=== PATIENT | female | born 1945 | race Caucasian/White ===

== ENCOUNTER 2022-02-16 10:37 | Emergency (ER) | payer OTHER, BC ==
--- OUTSIDE RECORDS SUMMARY | 2022-02-16 10:41 | XMS REPORT | Continuity of Care Document ---
:1945 Author Organization [facility] t Address [address] [place] [address] Care Team Providers Name Role Phone ZHANE_Shalini Attending Clinician Unavailable Neeru Attending Clinician [phone] Lisse_S Attending Clinician Unavailable Carmen Sy Attending Clinician [phone] HZANE_MARV_Horacio Attending Clinician Unavailable ZHANE_LUIS ENRIQUE_Kerrie Admitting Clinician Unavailable Lisse_S Admitting Clinician Unavailable ZHANE_MARV_LRichter Admitting Clinician Unavailable Payers Payer Name Policy Type Policy Number Effective Date Expiration Date Bi [place]ell [place] [id number] 2007 [employer] 00:00:[place] [facility] [id number] 2014 EMPLOYEE PROGRAM 00:00:00 (PP[place] 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 constipati Constipati 5-11 Fa asad on on 00:00: Practic 00 e Syncope Syncope Problem Active [facility] and and 01-11 Family collapse Collapse 00:00: Practi c 00 e Hypothyroi Hypothyroi Problem Active [facility] dism dism 01-11 Family 00:00: Practic 00 e Essential Essential Problem Active Chepe mclaughlin tremor Tremor 01-11 Family 00:00: Practic 00 e Hypertensi Hypertensi Problem Active [facility] ve ve Family disorder Disorder Practi c e Postnasal Postnasal Problem Active [facility] drip drip for ENT Nasal Nasal Problem Active Center airway airway for ENT obstructio obstructio n n Hypertroph Hypertroph Problem Active C enter y of nasal y of nasal fo r ENT turbinates turbinates Cough Cough Problem Active Center for [facility] Headache Headache Problem Active Cente r for ENT Chronic Chronic Problem Active Center sphenoidal sphenoidal fo r ENT sinusitis sinusitis Pain in Pain in Problem Active Center throat throat for ENT Sinusitis Sinusitis Problem Active [facility] - Chronic - Chronic for ENT Allergic Allergic Problem Active Cente r rhinitis rhinitis for EN T Otalgia, Otalgia, Problem Active Cente r bilateral bilateral for ENT Atypical Atypical Problem Active Cente r facial facial for ENT pain pain Allergies, Adverse Reactions, Alerts Allergy Allergy Status Severity Reaction(s) Onset Inactive Treating Comm ents Source Name Type Date Date Clinician Lexapro Allergy Active [place] to 4- Family substanc 00:00: Practic e 00 e Codeine Allergy Active [place] to 1-20 Family substanc 00:00: Practic e 00 e codeine DA Active [facility] 6-19 Clear 00:00: [facility] Not DA Active U 2008- [facility] Converte 6-19 Clear d 316. 00:00: Mccann See 00 [facility] asprin Adverse Active Info Not Center Reaction Available for E NT Social History Smoking Status Start Date Stop Date Source Never Smoker [place] Family P racdeshawn Medications Ordered Filled Start Stop Current Ordering Indication Dosage Frequency Signature Comments Components Source Medication Medication Date Date Medication? Clinician (SIG) Name Name Serena Lyons Yes Quan Allenes 2 sprays Center 2-05 in each for ENT 00:00: nostril 00 Astelin Astelin Yes Quan Nevarez 2 sprays Center 2-05 in each for ENT 00:00: nostril 00 calcium-vit calcium-vit No calcium-vi [place] 02-15 tamin Family D3-vitamin D3-vitamin 00:00: D3-vitamin Practic K 500 K 500 00 K 500 e mg-500 mg-500 mg-500 unit-40 mcg unit-40 mcg unit-40 chewable chewable mcg tablet tablet chewable calcium-vit calcium-vit tablet [place] calcium-vi D3-vitamin D3-vitamin tamin K 500 K 500 D3-vitamin mg-500 mg-500 K 500 unit-40 mcg unit-40 mcg mg-500 chewable chewable unit-40 tablet 1 tablet 1 mcg Tablet(s) Tablet(s) chewable Oral two Oral two tablet 1 times a day times a day Tablet(s) Oral two times a day Probiotic Probiotic No Probiotic [facility] Blend 2 Blend 2 02-15 Blend 2 Family billion billion 00:00: billion Prac tic cell-50 mg cell-50 mg 00 cell-50 mg e capsule capsule capsule Probiotic Probiotic Probiotic Blend 2 Blend 2 Blend 2 million million million cell-50 mg cell-50 mg cell-50 mg capsule 1 capsule 1 capsule 1 Capsule(s) Capsule(s) Capsule(s) Oral two Oral two Oral two times a day times a day times a day multivitami multivitami No multivitam [facility] n capsule n capsule 2-20 in capsule Family 00:00: Practic 00 e amlodipine amlodipine No 1 Q1D amlodipine Village 5 mg tablet 5 mg tablet 5 mg F amily Take 1 Take 1 tablet Practic tablet tablet Take 1 e every day every day tablet by oral by oral every day route. route. by oral route. estradiol estradiol No estradiol [facility] 0.0375 0.0375 0.0375 Family mg/24 hr mg/24 hr mg/24 hr Pra ctic semiweekly semiweekly semiweekly e transdermal transdermal transderma patch patch l patch fluticasone fluticasone No fluticason [facility] propionate propionate e Fam yared 50 50 propionate Practic mcg/actuati mcg/actuati 50 e on nasal on nasal mcg/actuat spray,suspe spray,suspe ion nasal nsion USE 1 nsion USE 1 spray,susp SPRAY IN SPRAY IN ension USE EACH EACH 1 SPRAY IN NOSTRIL NOSTRIL EACH TWICE DAILY TWICE DAILY NOSTRIL TWICE DAILY levocetiriz levocetiriz No levocetiri [facility] ine 5 mg ine 5 mg zine 5 mg Fa asad tablet TAKE tablet TAKE tablet Practic 1 TABLET BY 1 TABLET BY TAKE 1 e MOUTH DAILY MOUTH DAILY TABLET BY NEEDED NEEDED MOUTH DAILY NEEDED [facility]elukast [facility]el[facility] 10 mg t 10 mg Family tablet TAKE tablet TAKE tablet Practic 1 TABLET BY 1 TABLET BY TAKE 1 e MOUTH EVERY MOUTH EVERY TABLET BY DAY IN THE DAY IN THE MOUTH EVENING EVENING EVERY DAY IN THE EVENING olmesartan olmesartan No olmesartan [facility] 40 mg 40 mg 40 mg Family tablet TAKE tablet TAKE tablet Practic 1 TABLET BY 1 TABLET BY TAKE 1 e MOUTH EVERY MOUTH EVERY TABLET BY DAY DAY MOUTH EVERY DAY pantoprazol pantoprazol No pantoprazo [facility] e 40 mg e 40 mg le 40 mg Famil y tablet,seb tablet,seb tablet,del Practic yed release yed release ayed e TAKE 1 TAKE 1 release TABLET TABLET TAKE 1 DAILY DAILY TABLET DAILY pravastatin pravastatin No pravastati [facility] 20 mg 20 mg n 20 mg Family tablet TAKE tablet TAKE tablet Practic 1 TABLET 1 TABLET TAKE 1 e NIGHTLY AT NIGHTLY AT TABLET BEDTIME BEDTIME NIGHTLY AT BEDTIME sertraline sertraline No sertraline [facility] 50 mg 50 mg 50 mg Family tablet 1/2 tablet 1/2 tablet 1/2 Practic po q HS x po q HS x po q HS x e 10 nights 10 nights 10 nights then then then increase to increase to increase 1 tablet 1 tablet to 1 daily daily tablet daily Synthroid Synthroid Synthroid [facility] 50 mcg 50 mcg 50 mcg Family tablet TAKE tablet TAKE tablet Practic 1 TABLET 1 TABLET TAKE 1 e EVERY EVERY TABLET MORNING MORNING EVERY MORNING Immunizations Ordered Immunization Filled Immunization Date Status Commen ts Source Name Name COVID-19, mRNA, COVID-19, mRNA, 2021-08-16 Completed Vill age Family LNP-S, PF, 100 LNP-S, PF, 100 00:00:00 Practi ce mcg/0.5 mL dose mcg/0.5 mL dose (Moderna) (Moderna) influenza, high-dose, influenza, high-dose, 2021-06-02 Completed [facility] quadrivalent quadrivalent 00:00:00 Practice COVID-19, mRNA, COVID-19, mRNA, 2020-11-15 Completed Vill age Family LNP-S, PF, 100 LNP-S, PF, 100 00:00:00 Practi ce mcg/0.5 mL dose mcg/0.5 mL dose (Moderna) (Moderna) COVID-19, mRNA, COVID-19, mRNA, 2020-10-19 Completed Vill age Family LNP-S, PF, 100 LNP-S, PF, 100 00:00:00 Practi ce mcg/0.5 mL dose mcg/0.5 mL dose (Moderna) (Moderna) influenza, influenza, 2020-07-19 Completed [facility] injectable, injectable, 00:00:00 Practice quadrivalent quadrivalent zoster recombinant zoster recombinant 2019-07-19 Completed [facility] 00:00:00 Practice influenza, high dose influenza, high dose 2019-06-18 Completed [facility] seasonal seasonal 00:00:00 Practice pneumococcal pneumococcal 2018-07-25 Completed [facility] asad conjugate PCV 13 conjugate PCV 13 00:00:00 Pr actice influenza, seasonal, influenza, seasonal, 2018-07-09 Completed [facility] injectable injectable 00:00:00 Practice influenza, high dose influenza, high dose 2017-07-19 Completed [facility] seasonal seasonal 00:00:00 Practice influenza, seasonal, influenza, seasonal, 2012-06-21 Completed [facility] injectable injectable 00:00:00 Practice influenza, seasonal, influenza, seasonal, 2011-05-19 Completed [facility] injectable injectable 00:00:00 Practice pneumococcal pneumococcal 2009-08-04 Completed [facility] asad polysaccharide PPV23 polysaccharide PPV23 00:00:00 Practice zoster live zoster live 2006-09-19 [facility] Vital Signs Vital Name Observation Time Observation Value Comments Source BP Diastolic 2021-11-10 00:00:00 90 mm[Hg] [facility] Height 2021-11-10 00:00:00 63 [in_i] [facility] BMI (Body Mass 2021-11-10 00:00:00 21.4 kg/m2 [facility] Index) Practice BP Systolic 2021-11-10 00:00:00 160 mm[Hg] [facility] Body Weight 2021-11-10 00:00:00 120.6 [lb_av] [facility] BP Diastolic 2021-09-14 00:00:00 84 mm[Hg] [facility] Height 2021-09-14 00:00:00 63 [in_i] [facility] BMI (Body Mass 2021-09-14 00:00:00 21.3 kg/m2 [facility]) Practice BP Systolic 2021-09-14 00:00:00 168 mm[Hg] [facility] Body Weight 2021-09-14 00:00:00 120 [lb_av] [facility] Height 2021-07-14 00:00:00 63 [in_i] [facility] BMI (Body Mass 2021-07-14 00:00:00 21.1 kg/m2 [facility]) Practice Body Weight 2021-07-14 00:00:00 119 [lb_av] [facility] Procedures Procedure Date / Time Performed Performing Clinician Sourc e DEXA 2021-11-10 00:00:[address] [facility] Hoda ly Practice electrocardiogram 2021-11-10 00:00:[address] [facility] Hayder kamara [facility] Plan of Care Planned Activity Planned Date Details Comments Source Diagnostic Test Pending 2021-11-10 vitamin B12, serum [facility] 00:00:00 [code = vitamin Practice B12, serum] Diagnostic Test Pending 2021-11-10 vitamin D, Vill [facility] Family 00:00:00 25-hydroxy, total, Practice serum [code = vitamin D, 25-hydroxy, total, serum] Diagnostic Test Pending 2021-11-10 CBC w/ auto diff [facility] 00:00:00 [code = CBC w/ Practice auto diff] Diagnostic Test Pending 2021-11-10 CMP, serum or Chepe lissette Family 00:00:00 plasma [code = Practice CMP, serum or plasma] Diagnostic Test Pending 2021-11-10 urinalysis, Vill age Family 00:00:00 complete [code = Practice urinalysis, complete] Diagnostic Test Pending 2021-11-10 TSH, serum or Chepe lissette Family 00:00:00 plasma [code = Practice TSH, serum or plasma] Diagnostic Test Pending 2021-11-10 T4, free, serum V illage Family 00:00:00 [code = T4, free, Practice serum] Diagnostic Test Pending 2021-11-10 T3, free, serum or Village Family 00:00:00 plasma [code = T3, Practice free, serum or plasma] Diagnostic Test Pending 2021-11-10 lipid panel, serum [facility] Family 00:00:00 [code = lipid Practice panel, serum] Instructions [facility] Practice Encounters Start End Encounter Admission Attending Care Care Encounter Source Date/Time Date/Time Type Type Clinicians Facility Department ID 2022-01-18 2022-01-18 Outpatient GC_[facility] PRIV PRIV [id number] [facility] 04:06:00 04:06:00 _Cathey [id number] Medica l 2022-01-13 2022-01-13 Outpatient GC_[facility] PRIV PRIV [id number] [facility] 12:29:00 12:29:00 _Cathey [id number] Medica l 2022-01-13 2022-01-13 Outpatient Siddiqi, PRIV PRIV [id number] [id number] 00:00:00 00:00:00 [place] [id number] 2022-01-11 2022-01-11 Outpatient GC_[facility] PRIV PRIV [id number] [facility] 10:14:00 10:14:00 _Cathey [id number] Medica l 2021-12-23 2021-12-23 Outpatient GC_[facility] PRIV PRIV [id number] [facility] 03:42:00 03:42:00 _Cathey [id number] Medica l 2021-12-14 2021-12-14 Outpatient Lisse_S VFP VFP [id number] [facility] 03:26:00 03:26:00 [id number] Family Practic e 2021-12-14 2021-12-14 Outpatient GC_[facility] PRIV PRIV [id number] [facility] 01:52:00 01:52:00 _Cathey [id number] Medica l 2021-12-13 2021-12-13 Outpatient [facility] PRIV PRIV [facility] 12:32:00 12:32:00 _Cathey [id number] Medica l 2021-12-13 2021-12-13 Outpatient Kerrie, PRIV PRIV [id number] c-[id number] 00:00:00 00:00:00 Perla [id number] Carmen [id number] 2021-12-10 2021-12-10 Outpatient [facility] PRIV PRIV [facility] 03:02:00 03:02:00 _Cathey [id number] Medica l 2021-12-09 2021-12-09 Outpatient GC_[facility] PRIV PRIV [facility] 11:44:00 11:44:00 _Cathey [id number] Medica l 2021-12-08 2021-12-08 Outpatient GC_[facility] PRIV PRIV [facility] 05:05:00 05:05:00 _Cathey [id number] Medica l 2021-12-08 2021-12-08 Outpatient Kerrie, PRIV PRIV [id number] c-[id number] 00:00:00 00:00:00 Perla [id number] Carmen [id number] 2021-12-03 2021-12-03 Outpatient [facility] PRIV PRIV [facility] 03:13:00 03:13:00 _Cathey [id number] Medica l 2021-11-30 2021-11-30 Outpatient GC_[facility] PRIV PRIV [facility] 03:04:00 03:04:00 _Cathey [id number] Medica l 2021-11-29 2021-11-29 Outpatient GC_[facility] PRIV PRIV [facility] 02:17:00 02:17:00 _Cathey [id number] Medica l 2021-11-26 2021-11-26 Outpatient [facility] PRIV PRIV [facility] 02:00:00 02:00:00 _Cathey [id number] Medica l 2021-11-25 2021-11-25 Outpatient GC_[facility] PRIV PRIV [id number] [facility] 11:37:00 11:37:00 _Cathey [id number] Medica l 2021-11-24 2021-11-24 Outpatient GC_[facility] PRIV PRIV [id number] [facility] 04:56:00 04:56:00 _Cathey [id number] Medica l 2021-11-24 2021-11-24 Outpatient Kerrie, PRIV PRIV [id number] 00:00:00 00:00:00 Perla [id number] Carmen [id number] 2021-11-23 2021-11-23 Outpatient [facility] PRIV PRIV [id number] [facility] 10:47:00 10:47:00 _Cathey [id number] Medica l 2021-11-15 2021-11-15 Outpatient Lisse_S VFP VFP [id number] [facility] 01:22:00 01:22:00 [id number] Family Practic e 2021-11-10 2021-11-10 Outpatient Lisse_S VFP VFP [id number] [facility] 04:25:00 04:25:00 [id number] Family Practic e 2021-11-10 2021[facility] [place] [facility] [id number] 00:00:00 00:00:00 [facility] Family Dixon MD: Medical - Pra ctic [id number] VM_HOU_Asso e [facility] In , [facility]. Medicine [facility], [place] [address] , Ph. 2021-11-09 2021-11-09 Outpatient Lisse_S VFP VFP [id number] [facility] 06:12:00 06:12:00 [id number] Family Practic e 2021-11-08 2021-11-08 Outpatient Lisse_S VFP VFP [id number] [facility] 01:44:00 01:44:00 [id number] Family Practic e 2021-09-16 2021-09-16 Outpatient Lisse_S VFP VFP [id number] [facility] 02:29:00 02:29:00 [id number] Family Practic e 2021-09-14 2021-09-14 Outpatient Lisse_S VFP VFP [id number] [facility] 04:30:00 04:30:00 [id number] Family Practic e 2021-09-14 2021-09-14 Dev VFP [place] - [id number] V illage 00:00:00 00:00:[address] [facility] Family Dixon MD: [facility] ctic [id number] VM_HOU_Asso e [address] [facility] In , [facility]. Medicine [facility], [place] [address] , Ph. 2021-07-19 2021-07-19 Outpatient Lisse_S VFP VFP [id number] [facility] 07:45:00 07:45:00 [id number] Family Practic e 2021-07-14 2021-07-14 Outpatient Lisse_S VFP VFP [id number] [facility] 11:28:00 11:28:00 [id number] Family Practic e 2021-07-14 2021-07-14 Dev VFP [place] - [id number] V ill[facility] 00:00[facility] ctic [id number] Post VM_HOU_Asso [address] In Dr. [facility]. Medicine [facility], [place] [address] , Ph. 2020-10-15 2020-10-15 Outpatient GC_SWHATBIC PRIV PRIV [id number] [facility] 12:32:00 12:32:00 _LRichter [id number] [facility] kelsi 2020-10-15 2020-10-15 Outpatient GC_SWHATBIC PRIV PRIV [id number] [facility] 12:32:00 12:32:00 _LRichter [id number] [facility] kelsi 2020-10-15 2020-10-15 Outpatient GC_[facility] PRIV PRIV 502 [facility] 12:32:00 12:32:00 _Kerrie [id number] Medica l 2018-10-23 2018-10-23 Outpatient [facility] [id number] Center 17:16:00 17:16:00 [place] [facility] T for [facility] 2018-08-22 2018-08-22 Outpatient [facility] [id number] Center 13:30:00 13:30:00 [facility] 2018-08-03 2018-08-03 Outpatient [facility] [id number] Center 09:22:00 09:22:00 [facility] 2018-07-24 2018-07-24 Outpatient [facility] [id number] Center 16:37:00 16:37:00 [facility] 2018-07-13 2018-07-13 Outpatient [facility] [id number] Center 10:00:00 10:00:00 [facility] 2018-07-09 2018-07-09 Outpatient [facility] [id number] Center 09:30:00 09:30:00 [facility] 2018-07-06 2018-07-06 Outpatient [facility] [id number] Center 09:30:00 09:30:00 [facility] 2018-06-29 2018-06-29 Outpatient [facility] [id number] Center 13:00:00 13:00:00 [facility] 2018-06-28 2018-06-28 Outpatient [facility] [id number] Center 14:11:00 14:11:00 [facility] 2018-06-25 2018-06-25 Outpatient [facility] [id number] Center 13:40:00 13:40:00 [facility] 2018-06-08 2018-06-08 Outpatient [facility] [id number] Center 10:15:00 10:15:00 [facility] 2018-06-07 2018-06-07 Outpatient [facility] [id number] Center 11:49:00 11:49:00 [facility] 2018-06-07 2018-06-07 Outpatient [facility] [id number] Center 11:00:00 11:00:00 [facility] 2018-06-01 2018-06-01 Outpatient [facility] [id number] Center 10:00:00 10:00:00 [facility] 2018-05-23 2018-05-23 Outpatient [facility] [id number] Center 17:27:00 17:27:00 [facility] 2018-05-01 2018-05-01 Outpatient [facility] [id number] Center 09:45:00 09:45:00 [facility] Results This patient has no known results.
[2022-02-16] MEDS ORDERED: BENZONATATE 100 MG CAP PO ONE (11:34)
--- NOTE | 2022-02-16 12:06 | RAD REPORT ---
EXAM DESCRIPTION: RAD - Chest Single View - 02/16/2022 11:58 am CLINICAL HISTORY: Cough Chest pain. COMPARISON: Chest Pa And Lat (2 Views) dated 07/23/2017; Chest Pa And Lat (2 Views) dated 02/13/2016; CHEST PA AND LAT 2 VIEW dated 04/16/2010; CHEST PA AND LAT 2 VIEW dated 10/20/1999 FINDINGS: Portable technique limits examination quality. The lungs are grossly clear. The heart is normal in size. No displaced fractures. IMPRESSION: No acute intrathoracic process suspected.
--- NOTE | 2022-02-16 13:48 | EDPHYS ---
Physician Documentation [facility] Name: Maria Victoria Kirk Age: 77 yrs Sex: Female : 1945 Arrival Date: 02/16/2022 Time: 10:39 Bed 18 Private MD: ED Physician Warren Solis HPI: 02/16 13:56 This 77 yrs old Female presents to ER via Ambulatory with complaints of Sinus kdr Congestion, Wheezing > 1 Year, Headache. 13:56 The patient or guardian reports cough, that is intermittent, described as mild. Onset: kdr The symptoms/episode began/occurred gradually, 1.5 week(s) ago. Severity of symptoms: At their worst the symptoms were mild, in the emergency department the symptoms are unchanged. Modifying factors: The symptoms are alleviated by nothing, the symptoms are aggravated by. Associated signs and symptoms: The patient has no apparent associated signs or symptoms. The patient has not experienced similar symptoms in the past. The patient has not recently seen a physician. Historical: - Allergies: 11: Aspirin; tw2 - Home Meds: 11:07 olmesartan 40 mg oral tab 1 tab once daily [Active]; levocetirizine 5 mg oral tab 1 tab tw2 once daily [Active]; Synthroid 50 mcg Oral tab 1 tab once daily [Active]; Nasonex 50 mcg/actuation Nasal spry 2 sprays once daily [Active]; pantoprazole 40 mg oral TbEC 1 tab once daily [Active]; Estradiol Patch [Active]; Metamucil oral pack [Active]; Multi Vitamin oral [Active]; Vitamin D Oral [Active]; biotin oral [Active]; calcium 600 mg twice a day [Active]; - PMHx: 11:07 GERD; High Cholesterol; Hypertension; Hypothyroidism; tw2 - PSHx: 11:07 urethral sling; tw2 - Immunization history:: Adult Immunizations. - Social history:: Smoking status: . ROS: 13:56 Constitutional: Negative for fever, chills, and weight loss, Eyes: Negative for injury, kdr pain, redness, and discharge, Neck: Negative for injury, pain, and swelling, Cardiovascular: Negative for chest pain, palpitations, and edema, Abdomen/GI: Negative for abdominal pain, nausea, vomiting, diarrhea, and constipation, Back: Negative for injury and pain, : Negative for injury, bleeding, discharge, and swelling, MS/Extremity: Negative for injury and deformity, Skin: Negative for injury, rash, and discoloration, Neuro: Negative for headache, weakness, numbness, tingling, and seizure activity. Psych: Negative for depression, anxiety, suicide ideation, homicidal ideation, and hallucinations, Allergy/Immunology: Negative for hives, rash, and allergies, Endocrine: Negative for neck swelling, polydipsia, polyuria, polyphagia, and marked weight changes, Hematologic/Lymphatic: Negative for swollen nodes, abnormal bleeding, and unusual bruising. 13:56 ENT: Positive for sinus congestion, sinus pain, Negative for ear pain, foreign body sensation, Gum pain hearing loss, pulling at ears, Teeth pain tinnitus, dental pain, difficulty swallowing, difficulty handling secretions, hoarseness. Exam: 13:56 Constitutional: This is a well developed, well nourished patient who is awake, alert, kdr and in no acute distress. Head/Face: Normocephalic, atraumatic. Eyes: Pupils equal round and reactive to light, extra-ocular motions intact. Lids and lashes normal. Conjunctiva and sclera are non-icteric and not injected. Cornea within normal limits. Periorbital areas with no swelling, redness, or edema. Chest/axilla: Normal chest wall appearance and motion. Nontender with no deformity. No lesions are appreciated. Cardiovascular: Regular rate and rhythm with a normal S1 and S2. No gallops, murmurs, or rubs. Normal PMI, no JVD. No pulse deficits. Respiratory: Lungs have equal breath sounds bilaterally, clear to auscultation and percussion. No rales, rhonchi or wheezes noted. No increased work of breathing, no retractions or nasal flaring. Abdomen/GI: Soft, non-tender, with normal bowel sounds. No distension or tympany. No guarding or rebound. No evidence of tenderness throughout. Back: No spinal tenderness. No costovertebral tenderness. Full range of motion. Skin: Warm, dry with normal turgor. Normal color with no rashes, no lesions, and no evidence of cellulitis. MS/ Extremity: Pulses equal, no cyanosis. Neurovascular intact. Full, normal range of motion. Neuro: Awake and alert, GCS 15, oriented to person, place, time, and situation. Cranial nerves II-XII grossly intact. Motor strength 5/5 in all extremities. Sensory grossly intact. Cerebellar exam normal. Normal gait. Psych: Awake, alert, with orientation to person, place and time. Behavior, mood, and affect are within normal limits. 13:56 ENT: External ear(s): Ear canal(s): Examination of the other ear shows no obvious abnormality, Nose: Mouth: Posterior pharynx: Vital Signs: 11:05 BP 192 / 72; Pulse 81; Resp 17; Temp 97.6(O); Pulse Ox 99% on R/A; Weight 53.98 kg; tw2 Height 5 ft. 3 in. (160.02 cm); 11:26 BP 189 / 61; Pulse 72; Resp 17; Pulse Ox 97% on R/A; tw2 11:49 BP 168 / 65; Pulse 74; Resp 17; Pulse Ox 97% on R/A; tw2 12:50 BP 164 / 69; Pulse 71; Resp 17; Pulse Ox 98% on R/A; tw2 13:47 BP 157 / 62; Pulse 73; Resp 17; Pulse Ox 99% on R/A; tw2 11:05 Body Mass Index 21.08 (53.98 kg, 160.02 cm) tw2 MDM: 13:48 Patient medically screened. kdr 13:56 Data reviewed: vital signs, nurses notes, lab test result(s), EKG. [facility] 02/16 11:25 Order name: Strep; Complete Time: 12:04 kdr 02/16 11:29 Order name: Influenza Screen (a \\T\\ B); Complete Time: 12:51 bd 02/16 11:25 Order name: CXR XRAY; Complete Time: 12:51 kdr 02/16 11:29 Order name: COVID-19 SARS RT PCR (Document "Date of Onset" if Symptomatic); Complete bd Time: 13:42 02/16 12:02 Order name: Throat Culture EDMS Administered Medications: 11:32 Drug: Tessalon Perle (benzonatate) 200 mg Route: PO; tw2 12:30 Follow up: Response: No adverse reaction; Marked relief of symptoms tw2 Disposition Summary: 02/16/22 13:48 Discharge Ordered Location: Home kdr Problem: new kdr Symptoms: have improved kdr Condition: Stable kdr Diagnosis - Acute frontal sinusitis, unspecified kdr - Cough kdr - Nasal congestion kdr Followup: kdr - With: Private Physician - When: 2 - 3 days - Reason: If symptoms return, Further diagnostic work-up, Recheck today's complaints, Continuance of care, Re-evaluation by your physician Discharge Instructions: - Discharge Summary Sheet kdr - Sinusitis, Adult, [id number] kdr - Upper Respiratory Infection, Adult, [id number] kdr - Viral Illness, Adult kdr Forms: - Medication Reconciliation Form kdr - Thank You Letter kdr - Antibiotic Education kdr Prescriptions: - Augmentin 875-125 mg Oral Tablet - take 1 tablet by ORAL route every 12 hours for 7 days; 14 tablet; Refills: 0, kdr Product Selection Permitted - Prednisone 20 mg Oral Tablet - take 1 tablet by ORAL route once daily for 5 days; 5 tablet; Refills: 0, kdr Product Selection Permitted - Tessalon Perles 100 mg Oral Capsule - take 1 capsule by ORAL route every 8 hours As needed; 15 capsule; Refills: 0, kdr Product Selection Permitted Signatures: Dispatcher [employer] Warren Collins MD MD kdr Indu Ortiz RN RN tw2 Corrections: (The following items were deleted from the chart) 11:13 11:07 PMHx: Thyroid problem; tw tw 12:48 12:16 MR STROKE PROTOCOL+MRI.RAD.BRZ ordered. TOMAS MARIN
--- NOTE | 2022-02-16 13:48 | ER ---
Nurse's Notes [facility] Name: Maria Victoria Kirk Age: 77 yrs Sex: Female : 1945 Arrival Date: 02/16/2022 Time: 10:39 Bed 18 Private MD: Diagnosis: Acute frontal sinusitis, unspecified;Cough;Nasal congestion Presentation: 02/16 11:05 Chief complaint: Patient states: i have had a sinus infection for over 1.5 weeks. i had tw2 left over abx from last sinus infection Amoxicillin and some prednisone that i took to try and help it. it did a little bit but i am still congested and coughing up yellowish/brownish junk. but this morning i had chest pain, which i thought was from the drainage. i was in close contact with someone with covid 5 days ago, but we were outside. Coronavirus screen: congestion, cough unrelated to allergies, Client presents with at least one sign or symptom that may indicate coronavirus-19. Standard/surgical mask placed on the client. Provider contacted for isolation considerations. Ebola Screen: Patient denies travel to an Ebola-affected area in the 21 days before illness onset. Initial Sepsis Screen: Does the patient meet any 2 criteria? No. Patient's initial sepsis screen is negative. Does the patient have a suspected source of infection? No. Patient's initial sepsis screen is negative. Risk Assessment: Do you want to hurt yourself or someone else? Patient reports no desire to harm self or others. Onset of symptoms was February 16, 2022. 11:05 Method Of Arrival: Ambulatory tw2 11:05 Acuity: RADHA 3 tw2 Triage Assessment: 11:13 General: Appears in no apparent distress. slender, well groomed, Behavior is calm, tw2 cooperative, appropriate for age. Pain: Denies pain. EENT: Reports nasal congestion nasal discharge. Neuro: Level of Consciousness is awake, alert, obeys commands, Oriented to person, place, time, situation. Respiratory: Reports cough that is productive, Onset: The symptoms/episode began/occurred the patient has mild shortness of breath. Historical: - Allergies: 11:07 Aspirin; tw2 - Home Meds: 11:07 olmesartan 40 mg oral tab 1 tab once daily [Active]; levocetirizine 5 mg oral tab 1 tab tw2 once daily [Active]; Synthroid 50 mcg Oral tab 1 tab once daily [Active]; Nasonex 50 mcg/actuation Nasal spry 2 sprays once daily [Active]; pantoprazole 40 mg oral TbEC 1 tab once daily [Active]; Estradiol Patch [Active]; Metamucil oral pack [Active]; Multi Vitamin oral [Active]; Vitamin D Oral [Active]; biotin oral [Active]; calcium 600 mg twice a day [Active]; - PMHx: 11:07 GERD; High Cholesterol; Hypertension; Hypothyroidism; tw2 - PSHx: 11:07 urethral sling; tw2 - Immunization history:: Adult Immunizations. - Social history:: Smoking status: . Screenin:15 Abuse screen: Denies threats or abuse. Nutritional screening: No deficits noted. tw2 Tuberculosis screening: No symptoms or risk factors identified. Fall Risk None identified. Assessment: 11:15 Reassessment: see triage assessment. Reassessment: provider at bedside at this time. tw2 11:34 Cardiovascular: Rhythm is regular. Respiratory: Airway is patent Respiratory effort is tw2 even, unlabored. 11:50 Reassessment: Patient appears in no apparent distress at this time. No changes from tw2 previously documented assessment. Patient and/or family updated on plan of care and expected duration. Pain level reassessed. Patient is alert, oriented x 3, equal unlabored respirations, skin warm/dry/pink. 11:50 Reassessment: xray at bedside at this time. tw2 12:50 Reassessment: Patient appears in no apparent distress at this time. No changes from tw2 previously documented assessment. Patient and/or family updated on plan of care and expected duration. Pain level reassessed. Patient is alert, oriented x 3, equal unlabored respirations, skin warm/dry/pink. 13:47 Reassessment: Patient appears in no apparent distress at this time. Patient and/or tw2 family updated on plan of care and expected duration. Pain level reassessed. Patient is alert, oriented x 3, equal unlabored respirations, skin warm/dry/pink. Patient states symptoms have improved. Vital Signs: 11:05 BP 192 / 72; Pulse 81; Resp 17; Temp 97.6(O); Pulse Ox 99% on R/A; Weight 53.98 kg; tw2 Height 5 ft. 3 in. (160.02 cm); 11:26 BP 189 / 61; Pulse 72; Resp 17; Pulse Ox 97% on R/A; tw2 11:49 BP 168 / 65; Pulse 74; Resp 17; Pulse Ox 97% on R/A; tw2 12:50 BP 164 / 69; Pulse 71; Resp 17; Pulse Ox 98% on R/A; tw2 13:47 BP 157 / 62; Pulse 73; Resp 17; Pulse Ox 99% on R/A; tw2 11:05 Body Mass Index 21.08 (53.98 kg, 160.02 cm) tw2 ED Course: 10:39 Patient arrived in ED. as 10:51 Indu Ortiz, RN is Primary Nurse. tw2 10:51 Placed in gown. Bed in low position. Call light in reach. Client placed on continuous tw2 cardiac and pulse oximetry monitoring. NIBP monitoring applied. cardiac monitor technician on. Pulse ox on. Warm blanket given. 10:53 Warren Solis MD is Attending Physician. kdr 11:07 Triage completed. tw2 11:13 Arm band placed on. tw2 11:50 Influenza Screen (a \T\ B) Sent. mh5 11:50 Strep Sent. mh5 11:50 COVID swab sent to lab. Flu and/or RSV swab sent to lab. Strep swab sent to lab. mh5 11:59 CXR XRAY In Process Unspecified. EDMS 14:07 No provider procedures requiring assistance completed. Patient did not have IV access tw2 during this emergency room visit. Administered Medications: 11:32 Drug: Tessalon Perle (benzonatate) 200 mg Route: PO; tw2 12:30 Follow up: Response: No adverse reaction; Marked relief of symptoms tw2 Outcome: 13:48 Discharge ordered by . kdr 14:07 Discharged to home ambulatory, with significant other. tw2 14:07 Condition: stable 14:07 Discharge instructions given to patient, significant other, Instructed on discharge instructions, follow up and referral plans. the need for admit, medication usage, Demonstrated understanding of instructions, follow-up care, medications, Prescriptions given X 3. 14:07 Patient left the ED. tw2 Signatures: Dispatcher [employer] [facility] Warren Solis MD MD kdr Tarun, Indu Joshi RN RN tw2 Katey Mcneil 5 Corrections: (The following items were deleted from the chart) 11:07 PMHx: Thyroid problem; tw tw
[2022-02-16 14:19] VITALS: TEMP 97.6
[2022-02-16 14:25] VITALS: BP 157/62; O2SAT 99
== END 2022-02-16 14:07 | disposition home or self-care (01) ==
LOC: ER 10:37
DX: J01.10 Acute frontal sinusitis, unspecified (principal); R09.81 Nasal congestion; I10 Essential (primary) hypertension; E78.00 Pure hypercholesterolemia, unspecified; E03.9 Hypothyroidism, unspecified; K21.9 Gastro-esophageal reflux disease without esophagitis; Z20.822 Contact with and (suspected) exposure to COVID-19
CPT/HCPCS: 87070; 87081; 87804 ×2; 71045; 99284; U0003

== ENCOUNTER 2023-06-28 14:05 | Emergency (ER) | payer OTHER, BC ==
--- OUTSIDE RECORDS SUMMARY | 2023-06-28 14:20 | XMS REPORT | Continuity of Care Document ---
:1945 Author Organization [facility] t Address [address] [place] [address] Care Team Providers Name Role Phone Dev Attending Clinician Unavailable Steffi Attending Clinician Unavailable Mayra Attending Clinician Unavailable Perla Sy Attending Clinician [phone] Katie Siddiqi Attending Clinician [phone] Dev Admitting Clinician Unavailable Steffi Admitting Clinician Unavailable Mayra Admitting Clinician Unavailable Payers Payer Name Policy Type Policy Number Effective Date Expiration Date S ource [place] [id number] 2007 [place] 00:00:00 [place] [facility] [id number] 2014 EMPLOYEE PROGRAM 00:00:[place] [facility] [id number] 2014 EMPLOYEE PROGRAM 00:00:00 (PPO) Problems Condition Condition Condition Status Onset Resolution Last Treating Co mments Source Name Details Category Date Date Treatment Clinician Date Essential Essential Problem Active Chepe lissette hypertensi Hypertensi 2-06 Fa asad on on 00:00: Practic 00 e Osteopenia Osteopenia Problem Active [facility] 10-24 Family 00:00: Practic 00 e Allergic Allergic Problem Active Juares ge rhinitis Rhinitis 02-23 Family 00:00: Practic 00 e Occipital Occipital Problem Active Chepe mclaughlin headache Headache 6-08 Family 00:00: Practic 00 e Persistent Persistent Problem Active [facility] cough Cough 6-08 Family 00:00: Practic 00 e Onychomyco Onychomyco Problem Active 2018-09 [facility] sis sis 1-15 Family 00:00: Practic 00 e Constipati Constipati Problem Active 2018-09 P rivia on on 0-09 Medical 00:00: 00 Urinary Urinary Problem Active 2018-09 [facility] incontinen Incontinen 0-09 Me dical ce ce 00:00: 00 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 Sinusitis 00:00: Prac tic 00 e Viral Viral Problem Active [facility] enteritis Enteritis 5-16 Fami ly of of 00:00: Practic intestine Intestine 00 e Perennial Perennial Problem Active 2016-09 Chepe mclaughlin allergic Allergic 1-14 Family rhinitis Rhinitis 00:00: Practi c 00 e Headache Headache Problem Active 2016-09 Mor jones 1-14 Family 00:00: Practic 00 e Cough Cough Problem Active 2016-09 [facility] 1-14 Family 00:00: Practic 00 e Mixed Mixed Problem Active [facility] urinary Urinary 5-31 Family incontinen Incontinen 00:00: Pr actic ce ce 00 e Impacted Impacted Problem Active Mor jones cerumen in Cerumen in 5-31 Fa asad right ear Right Ear 00:00: Prac tic 00 e Chronic Chronic Problem Active [facility] constipati Constipati 5-11 Fa asad on on 00:00: Practic 00 e Syncope Syncope Problem Active [facility] and and 4-26 Family collapse Collapse 00:00: Practi c 00 e Hypothyroi Hypothyroi Problem Active [facility] dism dism 4-26 Family 00:00: Practic 00 e Essential Essential Problem Active Chepe mclaughlin tremor Tremor 4-26 Family 00:00: Practic 00 e Hypertensi Hypertensi Problem Active [facility] ve ve Family disorder Disorder Practi c e Menopausal 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 00:00: Mccann See 00 [facility] Predniso Allergy Active Other [facility] ne to Family substanc Practic e e Lactose Allergy Active Other [facility] to Family substanc Practic e e asprin Adverse Active Info Not Center Reaction Available for E NT Social History Smoking Status Start Date Stop Date Source Never Smoker [facility] Medications Ordered Filled Start Stop Current Ordering Indication Dosage Frequency Signature Comments Components Source Medication Medication Date Date Medication? Clinician (SIG) Name Name Serena Lyons Yes [facility] 2 sprays Center 2-05 in each for ENT 00:00: nostril 00 Astelin Astelin Yes [facility]an [facility] 2 sprays Center 2-05 in each for ENT 00:00: nostril 00 calcium-vit calcium-vit No calcium-vi [facility] valencia [place] 02-15 tamin Family D3-vitamin D3-vitamin 00:00: [...] times a day Probiotic Probiotic No Probiotic [facility] Blend 2 Blend 2 02-15 Blend 2 [...] day times a day times a day calcium-vit calcium-vit No calcium-vi [place] [...] two times a day Probiotic Probiotic No Barrett [facility] Blend 2 Blend 2 02-15 Blend 2 [...] day times a day [facility]ami [facility] n capsule 2-20 in capsule Family 00:00: Practic 00 e multivitami [facility] capsule n capsule 2-20 in capsule Family 00:00: Practic 00 e amlodipine amlodipine No amlodipine [facility] 5 mg tablet 5 mg tablet 5 mg F amily TAKE 1 TAKE 1 tablet Practic TABLET BY TABLET BY TAKE 1 e MOUTH EVERY MOUTH EVERY TABLET BY DAY DAY MOUTH EVERY DAY estradiol estradiol No estradiol [facility] 0.0375 0.0375 0.0375 Family mg/24 hr mg/24 hr mg/24 hr Pra ctic semiweekly semiweekly semiweekly e transdermal transdermal transderma patch patch l patch fluconazole fluconazole No fluconazol [facility] 200 mg 200 mg e 200 mg Family tablet TAKE tablet TAKE tablet Practic 1 TABLET BY 1 TABLET BY TAKE 1 e MOUTH TODAY MOUTH TODAY TABLET BY AND REPEAT AND REPEAT MOUTH IN 3 DAYS IN 3 DAYS TODAY AND REPEAT IN 3 DAYS fluticasone fluticasone No fluticason [facility] propionate propionate e Fam yared 50 50 propionate Practic mcg/actuati mcg/actuati 50 e on nasal on nasal mcg/actuat spray,suspe spray,suspe ion nasal nsion nsion spray,susp INSTILL 2 INSTILL 2 ension SPRAYS IN SPRAYS IN INSTILL 2 EACH EACH SPRAYS IN NOSTRIL NOSTRIL EACH DAILY. DAILY. NOSTRIL DIRECT DIRECT DAILY. SPRAY SPRAY DIRECT OUTWARD OUTWARD SPRAY TOWARDS EAR TOWARDS EAR OUTWARD TOWARDS EAR montelukast montelukast No montelukas [facility] 10 mg 10 mg t 10 mg Family tablet TAKE tablet TAKE tablet Practic 1 TABLET BY 1 TABLET BY TAKE 1 e MOUTH EVERY MOUTH EVERY TABLET BY DAY IN THE DAY IN THE MOUTH EVENING EVENING EVERY DAY IN THE EVENING olmesartan olmesartan No olmesartan [facility] 40 mg 40 mg 40 mg Family tablet TAKE tablet TAKE tablet Practic 1 TABLET BY 1 TABLET BY TAKE 1 e MOUTH EVERY MOUTH EVERY TABLET BY DAY DAY MOUTH EVERY DAY pantoprazol pantoprazol No pantoprazo [facility] e 40 mg e 40 mg le 40 mg Famil y tablet,seb tablet,seb tablet,del Practic yed release yed release ayed e TAKE 1 TAKE 1 release TABLET TABLET TAKE 1 DAILY DAILY TABLET DAILY pravastatin pravastatin No pravastati [facility] 20 mg 20 mg n 20 mg Family tablet TAKE tablet TAKE tablet Practic 1 TABLET 1 TABLET TAKE 1 e NIGHTLY AT NIGHTLY AT TABLET BEDTIME BEDTIME NIGHTLY AT BEDTIME Synthroid Synthroid No Synthroid [facility] 50 mcg 50 mcg 50 mcg Family tablet TAKE tablet TAKE tablet Practic 1 TABLET 1 TABLET TAKE 1 e EVERY EVERY TABLET MORNING MORNING EVERY MORNING amlodipine amlodipine No amlodipine [facility] 5 mg tablet 5 mg tablet 5 mg F amily TAKE 1 TAKE 1 tablet Practic TABLET BY TABLET BY TAKE 1 e MOUTH EVERY MOUTH EVERY TABLET BY DAY DAY MOUTH EVERY DAY fluticasone fluticasone No fluticason [facility] propionate propionate e Fam yared 50 50 propionate Practic mcg/actuati mcg/actuati 50 e on nasal on nasal mcg/actuat spray,suspe spray,suspe ion nasal nsion USE 1 nsion USE 1 spray,susp SPRAY IN SPRAY IN ension USE EACH EACH 1 SPRAY IN NOSTRIL NOSTRIL EACH TWICE DAILY TWICE DAILY NOSTRIL TWICE DAILY Lyllana Lyllana No Lyllana [facility] 0.0375 0.0375 0.0375 Family mg/24 hr mg/24 hr mg/24 hr Pra ctic transdermal transdermal transderma e patch patch l patch Metamucil 1 Metamucil 1 No Metamucil [facility] tsp bid tsp bid 1 tsp bid Fami ly Practic e montelukast montelukast No montelukas [facility] 10 mg 10 mg t 10 mg Family tablet TAKE tablet TAKE tablet Practic 1 TABLET BY 1 TABLET BY TAKE 1 e MOUTH EVERY MOUTH EVERY TABLET BY DAY IN THE DAY IN THE MOUTH EVENING EVENING EVERY DAY IN THE EVENING nystatin-tr nystatin-tr No nystatin-t [facility] iamcinolone iamcinolone riamcinolo Family 100,000 100,000 ne 100,000 Pra ctic unit/g-0.1 unit/g-0.1 unit/g-0.1 e % topical % topical % topical cream APPLY cream APPLY cream TOPICALLY TOPICALLY APPLY TO THE TO THE TOPICALLY AFFECTED AFFECTED TO THE AREA TWICE AREA TWICE AFFECTED DAILY IN DAILY IN AREA TWICE THE MORNING THE MORNING DAILY IN AND IN THE AND IN THE THE EVENING EVENING MORNING AND IN THE EVENING olmesartan olmesartan No olmesartan [facility] 40 mg 40 mg 40 mg Family tablet TAKE tablet TAKE tablet Practic 1 TABLET 1 TABLET TAKE 1 e DAILY DAILY TABLET DAILY pantoprazol pantoprazol No pantoprazo [facility] e 40 mg e 40 mg le 40 mg Famil y tablet,seb tablet,seb tablet,del Practic yed release yed release ayed e TAKE 1 TAKE 1 release TABLET TABLET TAKE 1 DAILY DAILY TABLET DAILY pravastatin pravastatin No pravastati [facility] 20 mg 20 mg n 20 mg Family tablet TAKE tablet TAKE tablet Practic 1 TABLET 1 TABLET TAKE 1 e NIGHTLY AT NIGHTLY AT TABLET BEDTIME BEDTIME NIGHTLY AT BEDTIME Synthroid Synthroid No Synthroid [facility] 50 mcg 50 mcg 50 mcg Family tablet TAKE tablet TAKE tablet Practic 1 TABLET BY 1 TABLET BY TAKE 1 e MOUTH EVERY MOUTH EVERY TABLET BY MORNING MORNING MOUTH EVERY MORNING terbinafine terbinafine No terbinafin [facility] HCl 250 mg HCl 250 mg e HCl 250 Family tablet tablet mg tablet Practi c terbinafine terbinafine terbinafin e HCl 250 mg HCl 250 mg e HCl 250 tablet 1 tablet 1 mg tablet Tablet(s) Tablet(s) 1 ORAL take ORAL take Tablet(s) daily daily ORAL take daily pantoprazol pantoprazol No pantoprazo [facility] e 40 mg e 40 mg le 40 mg Medic al tablet,seb tablet,seb tablet,del yed release yed release ayed TK 1 T PO D TK 1 T PO D release TK 1 T PO D pravastatin pravastatin No pravastati [facility] 20 mg 20 mg n 20 mg Medical tablet TK 1 tablet TK 1 tablet TK T PO HS T PO HS 1 T PO HS sertraline sertraline No sertraline [facility] 50 mg 50 mg 50 mg Medical tablet tablet tablet Synthroid Synthroid No Synthroid [facility] 50 mcg 50 mcg 50 mcg Medical tablet TK 1 tablet TK 1 tablet TK T PO QAM. T PO QAM. 1 T PO QAM. venlafaxine venlafaxine No venlafaxin [facility] ER 37.5 mg ER 37.5 mg e ER 37.5 Medical capsule,ext capsule,ext mg ended ended capsule,ex release 24 release 24 tended hr hr release 24 hr venlafaxine venlafaxine No venlafaxin [facility] ER 75 mg ER 75 mg e ER 75 mg M edical capsule,ext capsule,ext capsule,ex ended ended tended release 24 release 24 release 24 hr hr hr amlodipine amlodipine No amlodipine [facility] 5 mg tablet 5 mg tablet 5 mg M edical TAKE 1 TAKE 1 tablet TABLET BY TABLET BY TAKE 1 MOUTH EVERY MOUTH EVERY TABLET BY DAY DAY MOUTH EVERY DAY azelastine azelastine No azelastine [facility] 137 mcg 137 mcg 137 mcg Medica l (0.1 %) (0.1 %) (0.1 %) nasal spray nasal spray nasal aerosol aerosol spray aerosol estradiol estradiol No estradiol [facility] 0.0375 0.0375 0.0375 Medical mg/24 hr mg/24 hr mg/24 hr semiweekly semiweekly semiweekly transdermal transdermal transderma patch APPLY patch APPLY l patch ONE PATCH ONE PATCH APPLY ONE TRANSDERMAL TRANSDERMAL PATCH LY TWICE LY TWICE TRANSDERMA WEEKLY WEEKLY LLY TWICE DIRECTED DIRECTED WEEKLY DIRECTED levocetiriz levocetiriz No levocetiri [facility] ine 5 mg ine 5 mg zine 5 mg Me dical tablet TK 1 tablet TK 1 tablet TK T PO D T PO D 1 T PO D montelukast montelukast No montelukas [facility] 10 mg 10 mg t 10 mg Medical tablet TAKE tablet TAKE tablet 1 TABLET BY 1 TABLET BY TAKE 1 MOUTH EVERY MOUTH EVERY TABLET BY DAY IN THE DAY IN THE MOUTH EVENING EVENING EVERY DAY IN THE EVENING olmesartan olmesartan No olmesartan [facility] 40 mg 40 mg 40 mg Medical tablet TAKE tablet TAKE tablet 1 TABLET BY 1 TABLET BY TAKE 1 MOUTH EVERY MOUTH EVERY TABLET BY DAY DAY MOUTH EVERY DAY pantoprazol pantoprazol No pantoprazo [facility] e 40 mg e 40 mg le 40 mg Medic al tablet,seb tablet,seb tablet,del yed release yed release ayed TK 1 T PO D TK 1 T PO D release TK 1 T PO D pravastatin pravastatin No pravastati [facility] 20 mg 20 mg n 20 mg Medical tablet TK 1 tablet TK 1 tablet TK T PO HS T PO HS 1 T PO HS sertraline sertraline No sertraline [facility] 50 mg 50 mg 50 mg Medical tablet tablet tablet Synthroid Synthroid No Synthroid [facility] 50 mcg 50 mcg 50 mcg Medical tablet TK 1 tablet TK 1 tablet TK T PO QAM. T PO QAM. 1 T PO QAM. venlafaxine venlafaxine No venlafaxin [facility] ER 75 mg ER 75 mg e ER 75 mg M edical capsule,ext capsule,ext capsule,ex ended ended tended release 24 release 24 release 24 hr hr hr amlodipine amlodipine No amlodipine [facility] 5 mg tablet 5 mg tablet 5 mg M edical TAKE 1 TAKE 1 tablet TABLET BY TABLET BY TAKE 1 MOUTH EVERY MOUTH EVERY TABLET BY DAY DAY MOUTH EVERY DAY azelastine azelastine No azelastine [facility] 137 mcg 137 mcg 137 mcg Medica l (0.1 %) (0.1 %) (0.1 %) nasal spray nasal spray nasal aerosol aerosol spray aerosol docusate docusate No docusate [facility] via sodium 100 sodium 100 sodium 100 Medical mg capsule mg capsule mg capsule TAKE 2 TAKE 2 TAKE 2 CAPSULES BY CAPSULES BY CAPSULES MOUTH EVERY MOUTH EVERY BY MOUTH DAY FOR 50 DAY FOR 50 EVERY DAY DAYS DAYS FOR 50 NEEDED NEEDED DAYS NEEDED estradiol estradiol No estradiol [facility] 0.0375 0.0375 0.0375 Medical mg/24 hr mg/24 hr mg/24 hr semiweekly semiweekly semiweekly transdermal transdermal transderma patch APPLY patch APPLY l patch ONE PATCH ONE PATCH APPLY ONE TRANSDERMAL TRANSDERMAL PATCH LY TWICE LY TWICE TRANSDERMA WEEKLY WEEKLY LLY TWICE DIRECTED DIRECTED WEEKLY DIRECTED ibuprofen ibuprofen No ibuprofen [facility] 800 mg 800 mg 800 mg Medical tablet TAKE tablet TAKE tablet 1 TABLET BY 1 TABLET BY TAKE 1 MOUTH EVERY MOUTH EVERY TABLET BY 8 HOURS 8 HOURS MOUTH NEEDED NEEDED EVERY 8 HOURS NEEDED levocetiriz levocetiriz No levocetiri [facility] ine 5 mg ine 5 mg zine 5 mg Me dical tablet TK 1 tablet TK 1 tablet TK T PO D T PO D 1 T PO D montelukast montelukast No montelukas [facility] 10 mg 10 mg t 10 mg Medical tablet TAKE tablet TAKE tablet 1 TABLET BY 1 TABLET BY TAKE 1 MOUTH EVERY MOUTH EVERY TABLET BY DAY IN THE DAY IN THE MOUTH EVENING EVENING EVERY DAY IN THE EVENING olmesartan olmesartan No olmesartan [facility] 40 mg 40 mg 40 mg Medical tablet TAKE tablet TAKE tablet 1 TABLET BY 1 TABLET BY TAKE 1 MOUTH EVERY MOUTH EVERY TABLET BY DAY DAY MOUTH EVERY DAY pantoprazol pantoprazol No pantoprazo [facility] e 40 mg e 40 mg le 40 mg Medic al tablet,seb tablet,seb tablet,del yed release yed release ayed TK 1 T PO D TK 1 T PO D release TK 1 T PO D pravastatin pravastatin No pravastati [facility] 20 mg 20 mg n 20 mg Medical tablet TK 1 tablet TK 1 tablet TK T PO HS T PO HS 1 T PO HS sertraline sertraline No sertraline [facility] 50 mg 50 mg 50 mg Medical tablet tablet tablet Synthroid Synthroid No Synthroid [facility] 50 mcg 50 mcg 50 mcg Medical tablet TK 1 tablet TK 1 tablet TK T PO QAM. T PO QAM. 1 T PO QAM. tramadol 50 tramadol 50 No tramadol [facility] mg tablet mg tablet 50 mg Medi kelsi TAKE 1 TAKE 1 tablet TABLET BY TABLET BY TAKE 1 MOUTH EVERY MOUTH EVERY TABLET BY 6 HOURS 6 HOURS MOUTH NEEDED NEEDED EVERY 6 HOURS NEEDED venlafaxine venlafaxine No venlafaxin [facility] ER 75 mg ER 75 mg e ER 75 mg M edical capsule,ext capsule,ext capsule,ex ended ended tended release 24 release 24 release 24 hr hr hr amlodipine amlodipine No amlodipine [facility] 5 mg tablet 5 mg tablet 5 mg M edical TAKE 1 TAKE 1 tablet TABLET BY TABLET BY TAKE 1 MOUTH EVERY MOUTH EVERY TABLET BY DAY DAY MOUTH EVERY DAY amoxicillin amoxicillin No amoxicilli [facility] [phone] [id number] Medical mg-potassiu mg-potassiu mg-potassi m m um clavulanate clavulanate clavulanat 125 mg 125 mg e 125 mg tablet TAKE tablet TAKE tablet 1 TABLET BY 1 TABLET BY TAKE 1 MOUTH EVERY MOUTH EVERY TABLET BY 12 HOURS 12 HOURS MOUTH FOR 7 DAYS FOR 7 DAYS EVERY 12 HOURS FOR 7 DAYS azelastine azelastine No azelastine [facility] 137 mcg 137 mcg 137 mcg Medica l (0.1 %) (0.1 %) (0.1 %) nasal spray nasal spray nasal aerosol aerosol spray aerosol docusate docusate No docusate [facility] via sodium 100 sodium 100 sodium 100 Medical mg capsule mg capsule mg capsule TAKE 2 TAKE 2 TAKE 2 CAPSULES BY CAPSULES BY CAPSULES MOUTH EVERY MOUTH EVERY BY MOUTH DAY FOR 50 DAY FOR 50 EVERY DAY DAYS DAYS FOR 50 NEEDED NEEDED DAYS NEEDED estradiol estradiol No estradiol [facility] 0.0375 0.0375 0.0375 Medical mg/24 hr mg/24 hr mg/24 hr semiweekly semiweekly semiweekly transdermal transdermal transderma patch APPLY patch APPLY l patch ONE PATCH ONE PATCH APPLY ONE TRANSDERMAL TRANSDERMAL PATCH LY TWICE LY TWICE TRANSDERMA WEEKLY WEEKLY LLY TWICE DIRECTED DIRECTED WEEKLY DIRECTED fluconazole fluconazole No fluconazol [facility] 200 mg 200 mg e 200 mg Medical tablet Take tablet Take tablet 1 tablet(s) 1 tablet(s) Take 1 today by today by tablet(s) oral route, oral route, today by repeat dose repeat dose oral in 3 days in 3 days route, repeat dose in 3 days fluticasone fluticasone No fluticason [facility] propionate propionate e Med ical 50 50 propionate mcg/actuati mcg/actuati 50 on nasal on nasal mcg/actuat spray,suspe spray,suspe ion nasal nsion nsion spray,susp INSTILL 1 INSTILL 1 ension SPRAY IN SPRAY IN INSTILL 1 EACH EACH SPRAY IN NOSTRIL NOSTRIL EACH DAILY. DAILY. NOSTRIL DIRECT DIRECT DAILY. SPRAY SPRAY DIRECT OUTWARD OUTWARD SPRAY TOWARDS EAR TOWARDS EAR OUTWARD TOWARDS EAR levocetiriz levocetiriz No levocetiri [facility] ine 5 mg ine 5 mg zine 5 mg Me dical tablet TK 1 tablet TK 1 tablet TK T PO D T PO D 1 T PO D montelukast montelukast No montelukas [facility] 10 mg 10 mg t 10 mg Medical tablet TAKE tablet TAKE tablet 1 TABLET BY 1 TABLET BY TAKE 1 MOUTH EVERY MOUTH EVERY TABLET BY DAY IN THE DAY IN THE MOUTH EVENING EVENING EVERY DAY IN THE EVENING olmesartan olmesartan No olmesartan [facility] 40 mg 40 mg 40 mg Medical tablet TAKE tablet TAKE tablet 1 TABLET BY 1 TABLET BY TAKE 1 MOUTH EVERY MOUTH EVERY TABLET BY DAY DAY MOUTH EVERY DAY pantoprazol pantoprazol No pantoprazo [facility] e 40 mg e 40 mg le 40 mg Medic al tablet,seb tablet,seb tablet,del yed release yed release ayed TK 1 T PO D TK 1 T PO D release TK 1 T PO D pravastatin pravastatin No pravastati [facility] 20 mg 20 mg n 20 mg Medical tablet TK 1 tablet TK 1 tablet TK T PO HS T PO HS 1 T PO HS Synthroid Synthroid No Synthroid [facility] 50 mcg 50 mcg 50 mcg Medical tablet TK 1 tablet TK 1 tablet TK T PO QAM. T PO QAM. 1 T PO QAM. amlodipine amlodipine No amlodipine [facility] 5 mg tablet 5 mg tablet 5 mg M edical TAKE 1 TAKE 1 tablet TABLET BY TABLET BY TAKE 1 MOUTH EVERY MOUTH EVERY TABLET BY DAY DAY MOUTH EVERY DAY amoxicillin amoxicillin No amoxicilli [facility] [id number] n 875 Medical mg-potassiu mg-potassiu mg-potassi m m um clavulanate clavulanate clavulanat 125 mg 125 mg e 125 mg tablet TAKE tablet TAKE tablet 1 TABLET BY 1 TABLET BY TAKE 1 MOUTH EVERY MOUTH EVERY TABLET BY 12 HOURS 12 HOURS MOUTH FOR 7 DAYS FOR 7 DAYS EVERY 12 HOURS FOR 7 DAYS azelastine azelastine No azelastine [facility] 137 mcg 137 mcg 137 mcg Medica l (0.1 %) (0.1 %) (0.1 %) nasal spray nasal spray nasal aerosol aerosol spray aerosol BinaxNOW BinaxNOW No BinaxNOW [facility] via COVID-19 Ag COVID-19 Ag COVID-19 Medical Self Test Self Test Ag Self kit TEST kit TEST Test kit DIRECTED DIRECTED TEST TODAY TODAY DIRECTED TODAY docusate docusate No docusate [facility] via sodium 100 sodium 100 sodium 100 Medical mg capsule mg capsule mg capsule TAKE 2 TAKE 2 TAKE 2 CAPSULES BY CAPSULES BY CAPSULES MOUTH EVERY MOUTH EVERY BY MOUTH DAY FOR 50 DAY FOR 50 EVERY DAY DAYS DAYS FOR 50 NEEDED NEEDED DAYS NEEDED estradiol estradiol No 1patch( Q3.5D estradiol [facility] 0.0375 0.0375 es) 0.0375 Medical mg/24 hr mg/24 hr mg/24 hr semiweekly semiweekly semiweekly transdermal transdermal transderma patch Apply patch Apply l patch 1 patch 1 patch Apply 1 twice a twice a patch week by week by twice a transdermal transdermal week by route as route as transderma directed directed l route as for 90 for 90 directed days. days. for 90 days. fluconazole fluconazole No fluconazol [facility] 200 mg 200 mg e 200 mg Medical tablet Take tablet Take tablet 1 tablet(s) 1 tablet(s) Take 1 today by today by tablet(s) oral route, oral route, today by repeat dose repeat dose oral in 3 days in 3 days route, repeat dose in 3 days fluticasone fluticasone No fluticason [facility] propionate propionate e Med ical 50 50 propionate mcg/actuati mcg/actuati 50 on nasal on nasal mcg/actuat spray,suspe spray,suspe ion nasal nsion USE 1 nsion USE 1 spray,susp SPRAY IN SPRAY IN ension USE EACH EACH 1 SPRAY IN NOSTRIL NOSTRIL EACH TWICE DAILY TWICE DAILY NOSTRIL TWICE DAILY levocetiriz levocetiriz No levocetiri [facility] ine 5 mg ine 5 mg zine 5 mg Me dical tablet TK 1 tablet TK 1 tablet TK T PO D T PO D 1 T PO D montelukast montelukast No montelukas [facility] 10 mg 10 mg t 10 mg Medical tablet TAKE tablet TAKE tablet 1 TABLET BY 1 TABLET BY TAKE 1 MOUTH EVERY MOUTH EVERY TABLET BY DAY IN THE DAY IN THE MOUTH EVENING EVENING EVERY DAY IN THE EVENING nystatin-tr nystatin-tr No nystatin-t [facility] iainolone [facility] 100,000 100,000 ne 100,000 unit/g-0.1 unit/g-0.1 unit/g-0.1 % topical % topical % topical cream APPLY cream APPLY cream TO THE TO THE APPLY TO AFFECTED AFFECTED THE AREA(S) BY AREA(S) BY AFFECTED TOPICAL TOPICAL AREA(S) BY ROUTE 2 ROUTE 2 TOPICAL TIMES PER TIMES PER ROUTE 2 DAY IN DAY IN TIMES PER THEMORNING THEMORNING DAY IN AND EVENING AND EVENING THEMORNING AND EVENING olmesartan olmesartan No olmesartan [facility] 40 mg 40 mg 40 mg Medical tablet TAKE tablet TAKE tablet 1 TABLET BY 1 TABLET BY TAKE 1 MOUTH EVERY MOUTH EVERY TABLET BY DAY DAY MOUTH EVERY DAY pantoprazol pantoprazol No pantoprazo [facility] e 40 mg e 40 mg le 40 mg Medic al tablet,seb tablet,seb tablet,del yed release yed release ayed TK 1 T PO D TK 1 T PO D release TK 1 T PO D pravastatin pravastatin No pravastati [facility] 20 mg 20 mg n 20 mg Medical tablet TK 1 tablet TK 1 tablet TK T PO HS T PO HS 1 T PO HS Synthroid Synthroid No Synthroid [facility] 50 mcg 50 mcg 50 mcg Medical tablet TAKE tablet TAKE tablet 1 TABLET BY 1 TABLET BY TAKE 1 MOUTH EVERY MOUTH EVERY TABLET BY MORNING MORNING MOUTH EVERY MORNING amlodipine amlodipine No amlodipine [facility] 5 mg tablet 5 mg tablet 5 mg M edical TAKE 1 TAKE 1 tablet TABLET BY TABLET BY TAKE 1 MOUTH EVERY MOUTH EVERY TABLET BY DAY DAY MOUTH EVERY DAY azelastine azelastine No azelastine [facility] 137 mcg 137 mcg 137 mcg Medica l (0.1 %) (0.1 %) (0.1 %) nasal spray nasal spray nasal aerosol aerosol spray aerosol estradiol estradiol No estradiol [facility] 0.0375 0.0375 0.0375 Medical mg/24 hr mg/24 hr mg/24 hr semiweekly semiweekly semiweekly transdermal transdermal transderma patch APPLY patch APPLY l patch ONE PATCH ONE PATCH APPLY ONE TRANSDERMAL TRANSDERMAL PATCH LY TWICE LY TWICE TRANSDERMA WEEKLY WEEKLY LLY TWICE DIRECTED DIRECTED WEEKLY DIRECTED levocetiriz levocetiriz No levocetiri [facility] ine 5 mg ine 5 mg zine 5 mg Me dical tablet TK 1 tablet TK 1 tablet TK T PO D T PO D 1 T PO D montelukast montelukast No montelukas [facility] 10 mg 10 mg t 10 mg Medical tablet TAKE tablet TAKE tablet 1 TABLET BY 1 TABLET BY TAKE 1 MOUTH EVERY MOUTH EVERY TABLET BY DAY IN THE DAY IN THE MOUTH EVENING EVENING EVERY DAY IN THE EVENING nitrofurant nitrofurant No nitrofuran [facility] oin oin toin Medical monohydrate monohydrate monohydrat /macrocryst /macrocryst e/macrocry als 100 mg als 100 mg stals 100 capsule 1 capsule 1 mg capsule capsule capsule 1 capsule today, 1 today, 1 today, 1 capsule capsule capsule after after after urodynamic urodynamic urodynamic testing testing testing olmesartan olmesartan No olmesartan [facility] 40 mg 40 mg 40 mg Medical tablet TAKE tablet TAKE tablet 1 TABLET BY 1 TABLET BY TAKE 1 MOUTH EVERY MOUTH EVERY TABLET BY DAY DAY MOUTH EVERY DAY pantoprazol pantoprazol No pantoprazo [facility] e 40 mg e 40 mg le 40 mg Medic al tablet,seb tablet,seb tablet,del yed release yed release ayed TK 1 T PO D TK 1 T PO D release TK 1 T PO D pravastatin pravastatin No pravastati [facility] 20 mg 20 mg n 20 mg Medical tablet TK 1 tablet TK 1 tablet TK T PO HS T PO HS 1 T PO HS sertraline sertraline No sertraline [facility] 50 mg 50 mg 50 mg Medical tablet tablet tablet Synthroid Synthroid No Synthroid [facility] 50 mcg 50 mcg 50 mcg Medical tablet TK 1 tablet TK 1 tablet TK T PO QAM. T PO QAM. 1 T PO QAM. amlodipine amlodipine No amlodipine [facility] 5 mg tablet 5 mg tablet 5 mg M edical TAKE 1 TAKE 1 tablet TABLET BY TABLET BY TAKE 1 MOUTH EVERY MOUTH EVERY TABLET BY DAY DAY MOUTH EVERY DAY azelastine azelastine No azelastine [facility] 137 mcg 137 mcg 137 mcg Medica l (0.1 %) (0.1 %) (0.1 %) nasal spray nasal spray nasal aerosol aerosol spray aerosol estradiol estradiol No estradiol [facility] 0.0375 0.0375 0.0375 Medical mg/24 hr mg/24 hr mg/24 hr semiweekly semiweekly semiweekly transdermal transdermal transderma patch APPLY patch APPLY l patch ONE PATCH ONE PATCH APPLY ONE TRANSDERMAL TRANSDERMAL PATCH LY TWICE LY TWICE TRANSDERMA WEEKLY WEEKLY LLY TWICE DIRECTED DIRECTED WEEKLY DIRECTED levocetiriz levocetiriz No levocetiri [facility] ine 5 mg ine 5 mg zine 5 mg Me dical tablet TK 1 tablet TK 1 tablet TK T PO D T PO D 1 T PO D montelukast montelukast No montelukas [facility] 10 mg 10 mg t 10 mg Medical tablet TAKE tablet TAKE tablet 1 TABLET BY 1 TABLET BY TAKE 1 MOUTH EVERY MOUTH EVERY TABLET BY DAY IN THE DAY IN THE MOUTH EVENING EVENING EVERY DAY IN THE EVENING nitrofurant nitrofurant No nitrofuran [facility] oin oin toin Medical monohydrate monohydrate monohydrat /macrocryst /macrocryst e/macrocry als 100 mg als 100 mg stals 100 capsule 1 capsule 1 mg capsule capsule capsule 1 capsule today, 1 today, 1 today, 1 capsule capsule capsule after after after urodynamic urodynamic urodynamic testing testing testing olmesartan olmesartan No olmesartan [facility] 40 mg 40 mg 40 mg Medical tablet TAKE tablet TAKE tablet 1 TABLET BY 1 TABLET BY TAKE 1 MOUTH EVERY MOUTH EVERY TABLET BY DAY DAY MOUTH EVERY DAY Vital Signs Vital Name Observation Time Observation Value Comments Source BP Diastolic 2022-10-24 00:00:00 58 mm[Hg] [facility] Height 2022-10-24 00:00:00 64 [in_i] [facility] BMI (Body Mass 2022-10-24 00:00:00 21.2 kg/m2 [facility] BP Systolic 2022-10-24 00:00:00 138 mm[Hg] [facility] Body Weight 2022-10-24 00:00:00 123.4 [lb_av] [facility] BP Diastolic 2022-05-10 00:00:00 64 mm[Hg] [facility] Height 2022-05-10 00:00:00 64 [in_i] [facility] BMI (Body Mass 2022-05-10 00:00:00 20.6 kg/m2 [facility] Index) Practice BP Systolic 2022-05-10 00:00:00 122 mm[Hg] [facility] Body Weight 2022-05-10 00:00:00 119.8 [lb_av] [facility] BP Diastolic 2022-03-02 00:00:00 70 mm[Hg] [facility] Height 2022-03-02 00:00:00 63 [in_i] [facility] BMI (Body Mass 2022-03-02 00:00:00 20.9 kg/m2 [facility] Index) BP Systolic 2022-03-02 00:00:00 163 mm[Hg] [facility] Body Weight 2022-03-02 00:00:00 118 [lb_av] [facility] BP Diastolic 2022-02-23 00:00:00 77 mm[Hg] [facility] Height 2022-02-23 00:00:00 63 [in_i] [facility] BMI (Body Mass 2022-02-23 00:00:00 20.9 kg/m2 [facility] Index) Practice BP Systolic 2022-02-23 00:00:00 139 mm[Hg] [facility] Body Weight 2022-02-23 00:00:00 118 [lb_av] [facility] BP Diastolic 2022-01-13 00:00:00 84 mm[Hg] [facility] Height 2022-01-13 00:00:00 63 [in_i] [facility] BMI (Body Mass 2022-01-13 00:00:00 20.5 kg/m2 [facility] Index) BP Systolic 2022-01-13 00:00:00 150 mm[Hg] [facility] Body Weight 2022-01-13 00:00:00 116 [lb_av] [facility] BP Diastolic 2021-11-24 00:00:00 91 mm[Hg] [facility] Height 2021-11-24 00:00:00 63 [in_i] [facility] BMI (Body Mass 2021-11-24 00:00:00 20.5 kg/m2 [facility] Index) BP Systolic 2021-11-24 00:00:00 157 mm[Hg] [facility] Body Weight 2021-11-24 00:00:00 116 [lb_av] [facility] BP Diastolic 2021-11-10 00:00:00 90 mm[Hg] [facility] Height 2021-11-10 00:00:00 63 [in_i] [facility] BMI (Body Mass 2021-11-10 00:00:00 21.4 kg/m2 [facility] Practice BP Systolic 2021-11-10 00:00:00 160 mm[Hg] [facility] Body Weight 2021-11-10 00:00:00 120.6 [lb_av] [facility] BP Diastolic 2021-09-14 00:00:00 84 mm[Hg] [facility] Height 2021-09-14 00:00:00 63 [in_i] [facility] BMI (Body Mass 2021-09-14 00:00:00 21.3 kg/m2 [facility] BP Systolic 2021-09-14 00:00:00 168 mm[Hg] [facility] Body Weight 2021-09-14 00:00:00 120 [lb_av] [facility] Height 2021-07-14 00:00:00 63 [in_i] [facility] BMI (Body Mass 2021-07-14 00:00:00 21.1 kg/m2 [facility] Body Weight 2021-07-14 00:00:00 119 [lb_av] [facility] Procedures Procedure Date / Time Performing Clinician Source Performed electrocardiogram 2022-10-24 00:00:00 [facility] ankle brachial index 2022-05-10 00:00:00 [facility] MAMMO, screening, bilateral 2022-03-02 00:00:00 [facility] Cystoscopy 2021-12-24 00:00:00 [facility] Incontinence Procedure: 2021-12-24 00:00:00 [facility] Suburethral Sling DEXA 2021-11-10 00:00:00 [facility] electrocardiogram 2021-11-10 00:00:00 [facility] Incontinence Procedure: 2015-12-18 00:00:00 [facility] Urethral Bulking Injection Tubal Ligation 1982-09-18 00:00:00 [facility] Hysterectomy with [facility] Oopherectomy (Ovaries Removed) Plan of Care Planned Activity Planned Date Details Comments Source Diagnostic Test Pending 2022-10-24 vitamin B12, serum [facility] 00:00:00 [code = vitamin Practice B12, serum] Diagnostic Test Pending 2022-10-24 vitamin D, [facility] 00:00:00 25-hydroxy, total, Practice serum [code = vitamin D, 25-hydroxy, total, serum] Diagnostic Test Pending 2022-10-24 CBC w/ auto diff [facility] 00:00:00 [code = CBC w/ Practice auto diff] Diagnostic Test Pending 2022-10-24 CMP, serum or Chepe lissette [facility] 00:00:00 plasma [code = Practice CMP, serum or plasma] Diagnostic Test Pending 2022-10-24 urinalysis, [facility] 00:00:00 complete [code = Practice urinalysis, complete] Diagnostic Test Pending 2022-10-24 TSH, serum or Chepe lissette [facility] 00:00:00 plasma [code = Practice TSH, serum or plasma] Diagnostic Test Pending 2022-10-24 T4, free, serum [facility] 00:00:00 [code = T4, free, Practice serum] Diagnostic Test Pending 2022-10-24 T3, free, serum or [facility] 00:00:00 plasma [code = T3, Practice free, serum or plasma] Diagnostic Test Pending 2022-10-24 lipid panel, serum [facility] 00:00:00 [code = lipid Practice panel, serum] Diagnostic Test Pending 2021-11-24 urinalysis, [facility] 00:00:00 complete [code = urinalysis, complete] Diagnostic Test Pending 2021-11-24 culture, urine [facility] 00:00:00 [code = culture, urine] Instructions [facility] Encounters Start End Encounter Admission Attending Care Care Encounter Source Date/Time Date/Time Type Type Clinicians Facility Department ID 2023-06-26 2023-06-26 Outpatient Lisse_S_HOU VFP VFP [id number] [facility] 00:00:00 00:00:00 _ [id number] Family Practic e 2022-10-24 2022-10-24 Dev VFP [place] - [id number] V illage 00:00:00 00:00:00 Dilan [facility] Dixon MD: Medical - Pra ctic [address] [place] [address] VM_HOU_Asso , [address] In [facility], [place] [address] , Ph. 2022-10-21 2022-10-21 Outpatient Lisse_S VFP VFP [id number] [facility] 00:00:00 00:00:00 [id number] Family Practic e 2022-10-21 2022-10-21 Outpatient Lisse_S VFP VFP [id number] [facility] 00:00:00 00:00:00 [id number] Family Practic e 2022-10-13 2022-10-13 Outpatient _[facility] PRIV PRIV 502 [id number] [facility] 00:00:00 00:00:00 _Cathey [id number] Medica l 2022-10-13 2022-10-13 Outpatient _[facility] PRIV PRIV 502 [id number] [facility] 00:00:00 00:00:00 _Cathey [id number] Medica l 2022-10-13 2022-10-13 [facility] PRIV [facility] - [facility] [id number] [facility] 00:00:00 00:00:00 INOCENTE Macedo: Health - Vt dical [address] _[facility] Marie, _[address], [place] [address] , Ph. [phone] 2022-06-03 2022-06-03 Outpatient Lisse_S VFP P [id number] [facility] 00:00:00 00:00:00 [id number] Family Practic e 2022-05-10 2022-05-10 Dev Lisse_S VFP [place] - [id number] [facility] 00:00:00 00:00:00 [facility] [id number] Family Dixon MD: Medical - Pra ctic [address] _[address] roe In , Jose. Medicine [facility], [place] [address] , Ph. 2022-04-20 2022-04-20 Outpatient Lisse_S VFP [facility] [id number] [facility] 00:00:00 00:00:00 [id number] Family Practic e 2022-03-03 2022-03-03 Outpatient [facility] PR[facility] PRIV 502 [id number] [facility] 05:39:00 05:39:00 _Kerrie [id number] Medica l 2022-03-02 2022-03-02 [facility]IV 502 [id number] [facility] 02:09:00 02:09:00 _LRichter [id number] Medi kelsi 2022-03-02 2022-03-02 Perla PRIV [facility] - [facility] 15 [facility] 00:00:00 00:00:00 Carmen Hinkle - Fazal Bhandari _[facility] : [address], Office* [address], [place] [address] , Ph. [phone] 2022-03-02 2022-03-02 Outpatient Kerrie, PRIV PRIV [id number] 00:00:00 00:00:00 Perla [id number] Carmen [id number] 2022-02-25 2022-02-25 Outpatient [facility] PRIV PRIV 502 [facility] 09:10:00 09:10:00 _Kerrie [id number] Medica l 2022-02-23 2022-02-23 Outpatient GC_[facility] PRIV PRIV 502 20 [facility] 03:39:00 03:39:00 _Kerrie [id number] Medica l 2022-02-23 2022-02-23 Dev Lisse_S VFP [facility] [id number] [facility] 00:00:00 00:00:00 [facility] [id number] Family Dixon MD: [facility] - Pra ctic [address] _CHALINOU[facility]so e [facility] , [facility]. Medicine [address], [place] [address] , Ph. 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 [phone] 2022-01-13 2022-01-13 Outpatient Siddiqi, [facility] PRIV [id number] [id number] 00:00:00 00:00:00 Katie [id number] 2022-01-11 2022-01-11 Outpatient GC_[facility] PRIV PRIV 502 [id number] [facility] 10:14:00 10:14:00 _Cathey [id number] Medica l 2021-12-23 2021-12-23 Outpatient GC_[facility] PRIV PRIV 502 [id number] [facility] 03:42:00 03:42:00 _Cathey [id number] Medica l 2021-12-14 2021-12-14 Outpatient Lisse_S VFP VFP [id number] [facility] 03:26:00 03:26:00 [id number] Family Practic e 2021-12-14 2021-12-14 Outpatient GC_[facility] PRIV PRIV 502 [id number] [facility] 01:52:00 01:52:00 _Cathey [id number] Medica l 2021-12-13 2021-12-13 Outpatient GC_[facility] PRIV PRIV 502 [id number] [facility] 12:32:00 12:32:00 _Cathey [id number] Medica l 2021-12-13 2021-12-13 Perla [facility]IV [facility] 00:00:00 00:00:00 [facility] - Medic EVERT Bhandari MD: [address], Office* [address], [place] [address] , Ph. [phone] 2021-12-13 2021-12-13 Outpatient Kerrie, PRIV PRIV [id number] 00:00:00 00:00:00 Perla [id number] Carmen [id number] 2021-12-10 2021-12-10 Outpatient GC_[facility] PRIV PRIV 502 [facility] 03:02:00 03:02:00 _Cathey [id number] Medica l 2021-12-09 2021-12-09 Outpatient GC_[facility] PRIV PRIV 502 [facility] 11:44:00 11:44:00 _Cathey [id number] Medica l 2021-12-08 2021-12-08 Outpatient GC_[facility] PRIV PRIV 502 [facility] 05:05:00 05:05:00 _Cathey [id number] Medica l 2021-12-08 2021-12-08 Outpatient Kerrie, PRIV PRIV [id number] c-[id number] 00:00:00 00:00:00 Perla [id number] Carmen [id number] 2021-12-08 2021-12-08 Perla PRIV MD - [facility] 00:00:00 00:00:00 Carmen [facility] Medic al Kerrie, GC_HAWPRC : [address], Office* [address], [place] [address] , Ph. [phone] 2021-12-03 2021-12-03 Outpatient GC_[facility] PRIV PRIV 502 [facility] 03:13:00 03:13:00 _Cathey [id number] Medica l 2021-11-30 2021-11-30 Outpatient GC_[facility] PRIV PRIV 502 [facility] 03:04:00 03:04:00 _Cathey [id number] Medica l 2021-11-29 2021-11-29 Outpatient GC_[facility] PRIV PRIV 502 [facility] 02:17:00 02:17:00 _Cathey [id number] Medica l 2021-11-26 2021-11-26 Outpatient _[facility] PRIV PRIV 502 [facility] 02:00:00 02:00:00 _Cathey [id number] Medica l 2021-11-25 2021-11-25 Outpatient _[facility] PRIV PRIV 502 [facility] 11:37:00 11:37:00 _Cathey [id number] Medica l 2021-11-24 2021-11-24 Outpatient _[facility] PRIV PRIV 502 [facility] 04:56:00 04:56:00 _Cathey [id number] Medica l 2021-11-24 2021-11-24 Outpatient Kerrie, PRIV PRIV [id number] 00:00:00 00:00:00 Perla [id number] Carmen [id number] 2021-11-24 2021-11-24 Perla PRIV [facility] 09 [facility] 00:00:00 00:00:00 Carmen [facility] - Medic al Kerrie, _[facility] MD: [address], Office* [address], [place] [address] , Ph. [phone] 2021-11-23 2021-11-23 Outpatient _[facility] PRIV PRIV [facility] 10:47:00 10:47:00 _Cathey [id number] Medica l 2021-11-15 2021-11-15 Outpatient Lisse_S VFP [facility] [id number] [facility] 01:22:00 01:22:00 [id number] Family Practic e 2021-11-10 2021-11-10 Dev Lisse_S VFP [facility] [id number] [facility] 00:00:00 00:00:00 [facility] [id number] Family Dixon MD: [facility] - Pra ct [address] _CHALINOU_Asso e [facility] roe In , [facility]. Medicine [address], [place] [address] , Ph. 2021-11-09 2021-11-09 Outpatient Lisse_S VFP [facility] [id number] [facility] 06:12:00 06:12:00 [id number] Family Practic e 2021-11-08 2021-11-08 Outpatient Lisse_S VFP VFP [id number] [facility] 01:44:00 01:44:00 [id number] Family Practic e 2021-09-16 2021-09-16 Outpatient Lisse_S VFP VFP [id number] [facility] 02:29:00 02:29:00 [id number] Family Practic e 2021-09-14 2021-09-14 Dev Lisse_S VFP [place] - [id number] [facility] 00:00:00 00:00:00 [facility] [id number] Family Metcalf MD: [facility] ct [address] VM_HOU_Asso [address] ciashilpa In , [facility]. Medicine [address] [place] [address] , Ph. 2021-07-19 2021-07-19 Outpatient Lisse_S VFP VFP [id number] [facility] 07:45:00 07:45:00 [id number] Family Practic e 2021-07-14 2021-07-14 Dev Lisse_S VFP [place] - [id number] [facility] 00:00:00 00:00:00 [facility] [id number] Family Dixon MD: [facility] ctic [address] VM_HOU_Asso [address] roe In , [facility]. Medicine [facility], [place] [address] , Ph. 2020-10-15 2020-10-15 Outpatient GC_SWHATBIC PRIV PRIV 502 2- [facility] 12:32:00 12:32:00 _LRichter [id number] [facility] 2020-10-15 2020-10-15 Outpatient GC_SWHATBIC PRIV PRIV 502 [id number]- [facility] 12:32:00 12:32:00 _LRichter [id number] [facility] 2020-10-15 2020-10-15 Outpatient GC_[facility] PRIV PRIV 502 [id number] [facility] 12:32:00 12:32:00 _Kerrie [id number] Medica l 2018-10-23 2018-10-23 Outpatient The [facility] [id number] [place] 17:16:00 17:16:00 [facility] 2018-08-22 2018-08-22 Outpatient [facility] [id number] Center 13:30:00 13:30:00 [facility] 2018-08-03 2018-08-03 Outpatient [facility] [id number] Center 09:22:00 09:22:00 [facility] 2018-07-24 2018-07-24 Outpatient [facility] [id number] [facility] 16:37:00 16:37:00 [facility] 2018-07-13 2018-07-13 Outpatient [facility] [id number] [facility] 10:00:00 10:00:00 [facility] 2018-07-09 2018-07-09 Outpatient [facility] [id number] Center 09:30:00 09:30:00 [facility] 2018-07-06 2018-07-06 Outpatient [facility] [id number] [facility] 09:30:00 09:30:00 [facility] 2018-06-29 2018-06-29 Outpatient [facility] [id number] Center 13:00:00 13:00:00 [facility] 2018-06-28 2018-06-28 Outpatient [facility] [id number] Center 14:11:00 14:11:00 [facility] 2018-06-25 2018-06-25 Outpatient [facility] [id number] Center 13:40:00 13:40:00 [facility] 2018-06-08 2018-06-08 Outpatient [facility] [id number] Center 10:15:00 10:15:00 [facility] 2018-06-07 2018-06-07 Outpatient [facility] [id number] Center 11:49:00 11:49:00 [facility] 2018-06-07 2018-06-07 Outpatient [facility] [id number] Center 11:00:00 11:00:00 [facility] 2018-06-01 2018-06-01 Outpatient [facility] [id number] [place] 10:00:00 10:00:00 [facility] 2018-05-23 2018-05-23 Outpatient The [facility] [id number] [place] 17:27:00 17:27:00 [facility] 2018-05-01 2018-05-01 Outpatient The [facility] [id number] [place] 09:45:00 09:45:00 [facility] Results Test Description Test Time Test Comments Results Result Comments Source Bacteria identified in Urine by Culture 2021-12-12 00:00:00 Test Item Value Reference Range Interpretation Comme nts Bacteria identified in Urine by Culture (test code = 630-4) see below no growth A [facility] W Auto Differential panel - [id number] 00:00:00 Test Item Value Reference Range Interpretation Comments Leukocytes [#/volume] in 10.77 x10(3)/uL 4.00-10.10 H Blood by Automated count (test code = 6690-2) Erythrocytes [#/volume] in 4.74 x10(6)/uL 3.58-5.19 Blood by Automated count (test code = 789-8) Hemoglobin [Mass/volume] in 14.7 g/dL 11.0-15.5 Blood (test code = 718-7) Hematocrit [Volume Fraction] 43.7 % 31.5-44.8 of Blood by Automated count (test code = 4544-3) MCV [Entitic volume] by 92.2 fL 78.0-98.0 Automated count (test code = 787-2) MCH [Entitic mass] by 31.0 pg 25.2-32.6 Automated count (test code = 785-6) MCHC [Mass/volume] by 33.6 g/dL 31.0-34.7 Automated count (test code = 786-4) Erythrocyte distribution 12.3 % 12.0-15.5 width [Ratio] by Automated count (test code = 788-0) Polymorphonuclear cells/100 65.6 % 37.1-78.1 leukocytes in Blood by Manual count (test code = 23894-3) Lymphocytes/100 leukocytes in 20.4 % 13.7-50.9 Blood by Automated count (test code = 736-9) Mononuclear cells/100 8.8 % 3.0-11.9 leukocytes in Blood by Manual count (test code = 83475-1) Eosinophils/100 leukocytes in 4.0 % 0.0-5.0 Blood by Automated count (test code = 713-8) Basophils/100 leukocytes in 0.6 % 0.0-1.0 Blood by Automated count (test code = 706-2) Immature granulocytes/100 0.6 % 0.0-1.0 leukocytes in Blood (test code = 16383-3) Platelets [#/volume] in Blood 374 x10(3)/uL 140-425 by Automated count (test code = 777-3) Platelet mean volume [Entitic 9.6 fL 8.6-12.1 volume] in Blood by Automated count (test code = 02487-4) [facility] MedicalUrinalysis complete panel - [id number] 00:00:00 Test Item Value Reference Range Interpretation Comments Specific gravity of Urine 1.017 1.003-1.030 (test code = 2965-2) pH of Urine (test code = 7.0 5.0-8.0 2756-5) Protein [Presence] in Urine by negative negative Test strip (test code = 65318-4) Glucose [Presence] in Urine by negative negative Test strip (test code = 13880-8) Ketones [Presence] in Urine by negative negative Test strip (test code = 2514-8) Urobilinogen [Units/volume] in 0.2 mg/dL 0.2-1.0 Urine by Test strip (test code = 78243-5) Bilirubin.total [Presence] in negative negative Urine by Test strip (test code = 5770-3) Hemoglobin [Presence] in Urine negative negative by Test strip (test code = 5794-3) Nitrite [Presence] in Urine by negative negative Test strip (test code = 5802-4) Crystals [type] in Urine few none A sediment by Light microscopy (test code = 5782-8) Leukocytes [#/area] in Urine 0-4 0-4 sediment by Microscopy high power field (test code = 5821-4) Erythrocytes [#/area] in Urine none seen none seen sediment by Microscopy high power field (test code = 14227-6) RBC casts [Presence] in Urine none seen 0-1 sediment by Light microscopy (test code = 72966-4) Hyaline casts [Presence] in 0-4 0-4 Urine sediment by Light microscopy (test code = 80179-4) Epithelial cells [Presence] in few none-few Urine sediment by Light microscopy (test code = 07307-0) Granular casts [Presence] in none seen 0-1 Urine sediment by Light microscopy (test code = 14853-1) Bacteria [Presence] in Urine few none-few sediment by Light microscopy (test code = 01734-2) Leukocyte esterase [Presence] negative negative in Urine by Test strip (test code = 5799-2) Color of Urine (test code = yellow yellow, straw, azalia 5778-6) Character of Urine (test code clear clear = 57742-1) [facility] metabolic 2000 panel - Serum or [id number] 00:00:00 Test Item Value Reference Range Interpretation Comments Sodium [Moles/volume] 140 mmol/L 135-147 in Serum or Plasma (test code = 2951-2) Potassium 4.5 mmol/L 3.5-5.5 [Moles/volume] in Serum or Plasma (test code = 2823-3) Chloride 103 mmol/L 96-108 [Moles/volume] in Serum or Plasma (test code = 2075-0) Carbon dioxide, total 24 mmol/L 22-29 [Moles/volume] in Serum or Plasma (test code = 2028-9) Urea nitrogen 16 mg/dL 8-23 [Mass/volume] in Serum or Plasma (test code = 3094-0) Creatinine 0.65 mg/dL 0.49-1.02 [Mass/volume] in Serum or Plasma (test code = 2160-0) Glomerular filtration 85 mL/min See_Comment [Auto mated message] rate/1.73 sq The system Pluralityic h M.predicted [Volume generate d this result Rate/Area] in Serum transmit carlos reference or Plasma by range: >or=60. The Creatinine-based reference r james was formula (MDRD) (test not use d to interpret code = 17913-7) this result as normal/abnormal . Glomerular filtration 99 mL/min See_Comment [Auto mated message] rate/1.73 sq The system Pluralityic h M.predicted among generated this result blacks [Volume transmitted r eference Rate/Area] in Serum, range: >or=60. The Plasma or Blood by reference range was Creatinine-based not used to interpret formula (MDRD) (test this re sult as code = 57102-4) normal/abnor mal. Urea 24.6 ratio 10.0-28.0 nitrogen/Creatinine [Mass Ratio] in Serum or Plasma (test code = 3097-3) Calcium [Mass/volume] 9.4 mg/dL 8.6-10.4 in Serum or Plasma (test code = 42110-0) Glucose [Mass/volume] 97 mg/dL 70-99 in Serum or Plasma (test code = 2345-7) [facility] identified in Urine by [id number] 00:00:00 Test Item Value Reference Range Interpretation Comments Bacteria identified in Urine by no growth no growth Culture (test code = 630-4) [facility] identified in Urine by [id number] 00:00:00 Test Item Value Reference Range Interpretation Comments Bacteria identified in Urine by no growth no growth Culture (test code = 630-4) [facility]inal[facility] complete panel - [id number] 00:00:00 Test Item Value Reference Range Interpretation Comments Specific gravity of Urine 1.012 1.003-1.030 (test code = 2965-2) pH of Urine (test code = 7.0 5.0-8.0 2756-5) Protein [Presence] in Urine by negative negative Test strip (test code = 69730-9) Glucose [Presence] in Urine by negative negative Test strip (test code = 52349-1) Ketones [Presence] in Urine by negative negative Test strip (test code = 2514-8) Urobilinogen [Units/volume] in 0.2 mg/dL 0.2-1.0 Urine by Test strip (test code = 47834-5) Bilirubin.total [Presence] in negative negative Urine by Test strip (test code = 5770-3) Hemoglobin [Presence] in Urine negative negative by Test strip (test code = 5794-3) Nitrite [Presence] in Urine by negative negative Test strip (test code = 5802-4) Crystals [type] in Urine none none sediment by Light microscopy (test code = 5782-8) Leukocytes [#/area] in Urine 0-4 0-4 sediment by Microscopy high power field (test code = 5821-4) Erythrocytes [#/area] in Urine none seen none seen sediment by Microscopy high power field (test code = 64045-3) RBC casts [Presence] in Urine none seen 0-1 sediment by Light microscopy (test code = 86499-4) Hyaline casts [Presence] in 0-4 0-4 Urine sediment by Light microscopy (test code = 79685-7) Epithelial cells [Presence] in none none-few Urine sediment by Light microscopy (test code = 83601-5) Granular casts [Presence] in none seen 0-1 Urine sediment by Light microscopy (test code = 77943-3) Bacteria [Presence] in Urine none none-few sediment by Light microscopy (test code = 64017-7) Leukocyte esterase [Presence] negative negative in Urine by Test strip (test code = 5799-2) Color of Urine (test code = yellow yellow, straw, azalia 5778-6) Character of Urine (test code clear clear = 14693-1) [facility] panel - [id number] 00:00:00 Test Item Value Reference Range Interpretation Comments Specific gravity of Urine 1.012 1.003-1.030 (test code = 2965-2) pH of Urine (test code = 7.0 5.0-8.0 2756-5) Protein [Presence] in Urine by negative negative Test strip (test code = 00732-7) Glucose [Presence] in Urine by negative negative Test strip (test code = 26391-4) Ketones [Presence] in Urine by negative negative Test strip (test code = 2514-8) Urobilinogen [Units/volume] in 0.2 mg/dL 0.2-1.0 Urine by Test strip (test code = 15669-2) Bilirubin.total [Presence] in negative negative Urine by Test strip (test code = 5770-3) Hemoglobin [Presence] in Urine negative negative by Test strip (test code = 5794-3) Nitrite [Presence] in Urine by negative negative Test strip (test code = 5802-4) Crystals [type] in Urine none none sediment by Light microscopy (test code = 5782-8) Leukocytes [#/area] in Urine 0-4 0-4 sediment by Microscopy high power field (test code = 5821-4) Erythrocytes [#/area] in Urine none seen none seen sediment by Microscopy high power field (test code = 32061-2) RBC casts [Presence] in Urine none seen 0-1 sediment by Light microscopy (test code = 04730-6) Hyaline casts [Presence] in 0-4 0-4 Urine sediment by Light microscopy (test code = 45871-7) Epithelial cells [Presence] in none none-few Urine sediment by Light microscopy (test code = 67226-7) Granular casts [Presence] in none seen 0-1 Urine sediment by Light microscopy (test code = 92529-4) Bacteria [Presence] in Urine none none-few sediment by Light microscopy (test code = 95313-0) Leukocyte esterase [Presence] negative negative in Urine by Test strip (test code = 5799-2) Color of Urine (test code = yellow yellow, straw, azalia 5778-6) Character of Urine (test code clear clear = 69043-2) [facility]
[2023-06-28 14:44] LABS: Absolute Lymphocytes (CBC) 1.8 K/uL (0.7-4.9); Lymphocytes % 18.9 % (15.3-44.8); MCV 91.4 fL (80-100); MPV 7.5 fL (7.6-11.3); Platelets 306 thou/uL (152-406)
[2023-06-28 15:00] LABS: ALT/SGPT 27 U/L (13-56); AST/SGOT 22 U/L (15-37); Albumin 3.5 g/dL (3.4-5.0); Alkaline Phosphatase 78 U/L (45-117); BUN Blood Urea Nitrogen 17 mg/dL (7-18); Bicarbonate 25 mEq/L (21-32); Bilirubin Total 0.3 mg/dL (0.2-1.0); Glomerular Filtration Rate 72 ml/min (=/>90); Glucose Level 118 mg/dL (74-106); NT PRO-BNP 206 pg/mL (<450); Protein, Total 6.8 g/dL (6.4-8.2); Sodium Level 141 mEq/L (136-145)
--- NOTE | 2023-06-28 15:03 | RAD REPORT ---
EXAM DESCRIPTION: RAD - Chest Single View - 06/28/2023 2:56 pm CLINICAL HISTORY: Chest pain;Palpitations Chest pain. COMPARISON: <Comparisons> FINDINGS: Portable technique limits examination quality. The lungs are grossly clear. The heart is normal in size. No displaced fractures. IMPRESSION: No acute intrathoracic process suspected.
[2023-06-28 15:24] LABS: Bilirubin Direct < 0.1 mg/dL (0-0.2); Bilirubin Indirect, Calculated ND mg/dL (0.2-0.8)
--- NOTE | 2023-06-28 16:05 | EDPHYS ---
Physician Documentation [facility] Name: Maria Victoria Kirk Age: 78 yrs Sex: Female : 1945 Arrival Date: 06/28/2023 Time: 14:05 Bed 2 Private MD: ED Physician Warren Solis HPI: 06/28 16:43 This 78 yrs old Female presents to ER via Ambulatory with complaints of High Blood kdr Pressure, Palpitations. 16:44 Patient presents to the ED complaining of weakness and shakiness. She also has noted kdr that her blood pressure has been elevated in the 180s Monday briefly and then again today. Patient was scheduled to go to her dentist today when she had her symptoms. She feels this may be related to her anticipated dental visit. Patient is comfortable and nontoxic-appearing on initial presentation. Onset: The symptoms/episode began/occurred suddenly, yesterday. Severity of symptoms: At their worst the symptoms were mild moderate in the emergency department the symptoms are unchanged. The patient has not experienced similar symptoms in the past. The patient has not recently seen a physician. Historical: - Allergies: 14:16 Aspirin; ll1 14:16 Codeine; ll1 - PMHx: 14:16 GERD; High Cholesterol; Hypertension; Hypothyroidism; ll1 - PSHx: 14:16 urethral sling; Appendectomy; hysterectomy; ll1 - Immunization history:: Adult Immunizations up to date. - Social history:: Smoking status: Patient denies any tobacco usage or history of. ROS: 16:44 Constitutional: Negative for fever, chills, and weight loss, Eyes: Negative for injury, kdr pain, redness, and discharge, ENT: Negative for injury, pain, and discharge, Neck: Negative for injury, pain, and swelling, Cardiovascular: Negative for chest pain, palpitations, and edema, Respiratory: Negative for shortness of breath, cough, wheezing, and pleuritic chest pain, Abdomen/GI: Negative for abdominal pain, nausea, vomiting, diarrhea, and constipation, Back: Negative for injury and pain, MS/Extremity: Negative for injury and deformity, Skin: Negative for injury, rash, and discoloration, Neuro: Negative for headache, weakness, numbness, tingling, and seizure activity. Psych: Negative for depression, anxiety, suicide ideation, homicidal ideation, and hallucinations, Allergy/Immunology: Negative for hives, rash, and allergies, Endocrine: Negative for neck swelling, polydipsia, polyuria, polyphagia, and marked weight changes, Hematologic/Lymphatic: Negative for swollen nodes, abnormal bleeding, and unusual bruising, Exam: 16:44 Constitutional: This is a well developed, well nourished patient who is awake, alert, kdr and in no acute distress. Head/Face: Normocephalic, atraumatic. Eyes: Pupils equal round and reactive to light, extra-ocular motions intact. Lids and lashes normal. Conjunctiva and sclera are non-icteric and not injected. Cornea within normal limits. Periorbital areas with no swelling, redness, or edema. Neck: Trachea midline, no thyromegaly or masses palpated, and no cervical lymphadenopathy. Supple, full range of motion without nuchal rigidity, or vertebral point tenderness. No Meningismus. Chest/axilla: Normal chest wall appearance and motion. Nontender with no deformity. No lesions are appreciated. Cardiovascular: Regular rate and rhythm with a normal S1 and S2. No gallops, murmurs, or rubs. Normal PMI, no JVD. No pulse deficits. Respiratory: Lungs have equal breath sounds bilaterally, clear to auscultation and percussion. No rales, rhonchi or wheezes noted. No increased work of breathing, no retractions or nasal flaring. Abdomen/GI: Soft, non-tender, with normal bowel sounds. No distension or tympany. No guarding or rebound. No evidence of tenderness throughout. Back: No spinal tenderness. No costovertebral tenderness. Full range of motion. Skin: Warm, dry with normal turgor. Normal color with no rashes, no lesions, and no evidence of cellulitis. MS/ Extremity: Pulses equal, no cyanosis. Neurovascular intact. Full, normal range of motion. Neuro: Awake and alert, GCS 15, oriented to person, place, time, and situation. Cranial nerves II-XII grossly intact. Motor strength 5/5 in all extremities. Sensory grossly intact. Cerebellar exam normal. Normal gait. Psych: Awake, alert, with orientation to person, place and time. Behavior, mood, and affect are within normal limits. Vital Signs: 14:17 BP 202 / 90; Pulse 88; Resp 16; Temp 98.3; Pulse Ox 99% ; Weight 53.52 kg; Height 5 ft. ll1 4 in. ; Pain 0/10; 14:40 BP 149 / 75; Pulse 79; Resp 12; Pulse Ox 97% on R/A; me1 15:27 BP 143 / 68; Pulse 74; Resp 12; Pulse Ox 95% on R/A; me1 14:17 Body Mass Index 20.25 (53.52 kg, 162.56 cm) ll1 14:17 Pain Scale: Adult ll1 MDM: 16:04 Patient medically screened. kdr 16:44 Data reviewed: vital signs, nurses notes, lab test result(s), radiologic studies. [facility] 06/28 14:13 Order name: Basic Metabolic Panel; Complete Time: 15:29 [facility] 06/28 14:13 Order name: CBC with Diff; Complete Time: 15:29 [facility] 06/28 14:13 Order name: D-Dimer; Complete Time: 15:29 [facility] 06/28 14:13 Order name: LFT's; Complete Time: 15:29 [facility] 06/28 14:13 Order name: NT PRO-BNP; Complete Time: 15:29 [facility] 06/28 14:13 Order name: Troponin HS; Complete Time: 15:29 [facility] 06/28 14:13 Order name: XRAY Chest (1 view); Complete Time: 15:29 [facility] 06/28 14:13 Order name: EKG; Complete Time: 14:13 [facility] 06/28 14:13 Order name: Cardiac monitoring; Complete Time: 14:20 [facility] 06/28 14:13 Order name: EKG - Nurse/Tech; Complete Time: 14:20 [facility] 06/28 14:13 Order name: IV Saline Lock; Complete Time: 14:35 [facility] 06/28 14:13 Order name: Labs collected and sent; Complete Time: 14:35 [facility] 06/28 14:13 Order name: O2 Per Protocol; Complete Time: 14:20 [facility] 06/28 14:13 Order name: O2 Sat Monitoring; Complete Time: 14:20 kdr Administered Medications: No medications were administered Disposition Summary: 06/28/23 16:04 Discharge Ordered Problem: new kdr Symptoms: have improved kdr Condition: Stable kdr Diagnosis - Hypertensive heart disease without heart failure kdr Followup: kdr - With: Private Physician - When: 2 - 3 days - Reason: If symptoms return, Further diagnostic work-up, Recheck today's complaints, Continuance of care, Re-evaluation by your physician Discharge Instructions: - Discharge Summary Sheet kdr - Hypertension, Adult, [id number] kdr Forms: - Medication Reconciliation Form kdr - Thank You Letter kdr - Patient Portal Instructions kdr - Leadership Thank You Letter kdr Signatures: Dispatcher [employer] Warren Collins MD MD kdr Sunny Watts RN RN ll1
--- NOTE | 2023-06-28 16:05 | ER ---
Nurse's Notes [facility] Name: Maria Victoria Kirk Age: 78 yrs Sex: Female : 1945 Arrival Date: 06/28/2023 Time: 14:05 Bed 2 Private MD: Diagnosis: Hypertensive heart disease without heart failure Presentation: 06/28 14:17 Chief complaint: Patient states: Weak, shaky, high BP since Monday. 180's/102. ll1 Coronavirus screen: Vaccine status: Patient reports receiving the 2nd dose of the covid vaccine. Client denies travel out of the [place] in the last 14 days. At this time, the client does not indicate any symptoms associated with coronavirus-19. Ebola Screen: Patient denies travel to an Ebola-affected area in the 21 days before illness onset. Initial Sepsis Screen: Does the patient meet any 2 criteria? No. Patient's initial sepsis screen is negative. Does the patient have a suspected source of infection? No. Patient's initial sepsis screen is negative. Risk Assessment: Do you want to hurt yourself or someone else? Patient reports no desire to harm self or others. Onset of symptoms was June 26, 2023. 14:17 Method Of Arrival: Ambulatory ll1 14:17 Acuity: RADHA 2 ll1 Historical: - Allergies: 14:16 Aspirin; ll1 14:16 Codeine; ll1 - PMHx: 14:16 GERD; High Cholesterol; Hypertension; Hypothyroidism; ll1 - PSHx: 14:16 urethral sling; Appendectomy; hysterectomy; ll1 - Immunization history:: Adult Immunizations up to date. - Social history:: Smoking status: Patient denies any tobacco usage or history of. Screenin:37 [facility] ED Fall Risk Assessment (Adult) History of falling in the last 3 months, me1 including since admission No falls in past 3 months (0 pts) Confusion or Disorientation No (0 pts) Intoxicated or Sedated No (0 pts) Impaired Gait No (0 pts) Mobility Assist Device Used No (0 pt) Altered Elimination No (0 pt) Score/Fall Risk Level 0 - 2 = Low Risk. Abuse screen: Denies threats or abuse. Nutritional screening: No deficits noted. Tuberculosis screening: No symptoms or risk factors identified. Assessment: 14:37 General: Appears comfortable, well groomed, well developed, well nourished, Behavior is me1 cooperative, appropriate for age, anxious, Reports weak, shaky and high bp since Monday. Pain: Denies pain. Neuro: Level of Consciousness is awake, alert, obeys commands, Oriented to person, place, time, situation, Appropriate for age. Cardiovascular: Capillary refill < 3 seconds Patient's skin is warm and dry. Respiratory: Airway is patent Respiratory effort is even, unlabored, Respiratory pattern is regular, symmetrical. Vital Signs: 14:17 BP 202 / 90; Pulse 88; Resp 16; Temp 98.3; Pulse Ox 99% ; Weight 53.52 kg; Height 5 ft. ll1 4 in. ; Pain 0/10; 14:40 BP 149 / 75; Pulse 79; Resp 12; Pulse Ox 97% on R/A; me1 15:27 BP 143 / 68; Pulse 74; Resp 12; Pulse Ox 95% on R/A; me1 14:17 Body Mass Index 20.25 (53.52 kg, 162.56 cm) ll1 14:17 Pain Scale: Adult ll1 ED Course: 14:06 Patient arrived in ED. rg4 14:12 Warren Solis MD is Attending Physician. kdr 14:16 Arm band placed on Patient placed in an exam room, on a stretcher. ll1 14:19 Triage completed. ll1 14:35 Alicia Scott, RN is Primary Nurse. me1 14:35 Inserted saline lock: 22 gauge in left antecubital area, using aseptic technique. me1 14:35 Basic Metabolic Panel Sent. me1 14:35 CBC with Diff Sent. me1 14:35 D-Dimer Sent. me1 14:35 LFT's Sent. me1 14:35 NT PRO-BNP Sent. me1 14:35 Troponin HS Sent. me1 14:37 Patient has correct armband on for positive identification. Bed in low position. Call [facility] light in reach. Side rails up X 1. Provided Education on: POC. Verbalized understanding. . 14:37 No provider procedures requiring assistance completed. me1 14:58 XRAY Chest (1 view) In Process Unspecified. EDMS 16:20 IV discontinued, intact, bleeding controlled, No redness/swelling at site. ld1 Administered Medications: No medications were administered Medication: 14:37 VIS not applicable for this client. me1 Outcome: 16:04 Discharge ordered by . kdr 16:20 Discharged to home ambulatory, ld1 16:20 Condition: stable 16:20 Discharge instructions given to patient, Instructed on discharge instructions, follow up and referral plans. Demonstrated understanding of instructions, follow-up care, 16:20 Patient left the ED. ld1 Signatures: Dispatcher [employer] EDND Warren Solis MD MD kdr Garcia, Rubi 4 Sunny Watts RN RN 1 Gail Bell RN RN ld1 Alicia Scott RN RN fl1
[2023-06-28 16:38] VITALS: TEMP 98.3
[2023-06-28 16:49] VITALS: BP 143/68; O2SAT 95
--- NOTE | 2023-06-29 12:29 | EKG ---
Test Date: 2023-06-28 Test Time: 14:16:44 Fishing Tool Supervisor: TANNER MEASUREMENT RESULTS: Intervals: Rate: 83 IL: 180 QRSD: 82 QT: 368 QTc: 432 [place]: P: 75 IL: 180 QRS: 43 T: 75 INTERPRETIVE STATEMENTS: Normal sinus rhythm Biatrial enlargement Septal infarct, age undetermined Abnormal ECG Compared to ECG 01/22/2018 10:52:10 Myocardial infarct finding now present Electronically Signed On 06-29-23 12:27:56 CDT by Savage Barnhart
== END 2023-06-28 16:20 | disposition home or self-care (01) ==
LOC: ER 14:05
DX: I11.9 Hypertensive heart disease without heart failure (principal); I10 Essential (primary) hypertension; Z88.5 Allergy status to narcotic agent; Z88.6 Allergy status to analgesic agent
CPT/HCPCS: 36415; 71045; 80048; 80076; 83880; 84484; 85025; 85379; 93005

== ENCOUNTER → 2023-12-10 | Emergency (ER) | payer OTHER, BC ==
[~2023-12-10] MED LIST: CIPROFLOXACIN 400mg IV 400 MG/200 ML BAG IV ONE; METRONIDAZOLE 500mg IVPB 500 MG/100 ML BAG IV ONE; NA CHLORIDE 0.9% 1,000 ML ONE; ONDANSETRON 4 MG/2 ML VIAL ONE
--- OUTSIDE RECORDS SUMMARY | 2023-12-10 14:56 | XMS REPORT | Continuity of Care Document ---
Author Name Unknown Address [address] [facility] [address] [place] [address] [facility] Address [address] [facility] [address] [place] [address] Care Team Providers Care Compliance Aide Name Role Phone ZHANE_Shalini Attending Clinician Unavailab delgado Méndez Attending Clinician Unavailable ZHANE_Caro Attending Clinician Unavail able Peral Sy Attending Clinician [phone] Katie Siddiqi Attending Clinician [phone] ZHANE_Shalini Admitting Clinician Unavailab delgado Méndez Admitting Clinician Unavailable ZHANE_Caro Admitting Clinician Unavail able Payers Payer Name Policy Type Policy Number Effective Date Expirati on Date Source [place] [employer] [id number] 2007 00:00:00 [place] [id number] 2014 00:00:00 [place] [id number] 2014 00:00:00 Problems Condition Name Condition Details Condition Category Status Onset Date Resolution Date Last Treatment Date Treating Clinician Comments Source Anxiety Anxiety Problem Active 11-03 00:00: 00 [facility] Pruritus of vagina Pruritus of Vagina Problem Active 11-03 00:00: 00 [facility] Edema of lower extremity Edema of Lower Extremity Problem Active 11-03 00:00: 00 [facility] Senile purpura Senile Purpura Problem Active 2022-09 00:00: 00 [facility] Sinusitis Sinusitis Problem Active 2022-09 00:00: 00 [facility] 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 Problem Active 2022-09 0 00:00: 00 [facility] Essential hypertensi on Essential Hypertensi on Problem Active 10-24 00:00: 00 [facility] Osteopenia Osteopenia Problem Active 10-24 00:00: 00 [facility] Allergic rhinitis Allergic Rhinitis Problem Active 02-23 00:00: 00 [facility] Occipital headache Occipital Headache Problem Active 02-23 00:00: 00 [facility] Persistent cough Persistent Cough Problem Active 02-23 00:00: 00 [facility] Onychomyco sis Onychomyco sis Problem Active 2018-09 00:00: 00 [facility] Constipati on Constipati on Problem Active 2018-09 00:00: 00 [facility] Urinary incontinen ce Urinary Incontinen ce Problem Active 2018-09 00:00: 00 [facility] Chronic sphenoidal sinusitis Chronic Sphenoidal Sinusitis Problem Active 06-14 00:00: 00 [facility] Viral enteritis of intestine Viral Enteritis of Intestine Problem Active 01-31 00:00: 00 [facility] Perennial allergic rhinitis Perennial Allergic Rhinitis Problem Active 2016-09 00:00: 00 [facility] Headache Headache Problem Active 2016-09 00:00: 00 [facility] Cough Cough Problem Active 2016-09 00:00: 00 [facility] Mixed urinary incontinen ce Mixed Urinary Incontinen ce Problem Active 02-15 00:00: 00 [facility] Impacted cerumen in right ear Impacted Cerumen in Right Ear Problem Active 02-15 00:00: 00 [facility] Chronic constipati on Chronic Constipati on Problem Active 01-26 00:00: 00 [facility] Syncope and collapse Syncope and Collapse Problem Active 01-11 00:00: 00 [facility] Hypothyroi dism Hypothyroi dism Problem Active 01-11 00:00: 00 [facility] Essential tremor Essential Tremor Problem Active 01-11 00:00: 00 [facility] Menopausal syndrome Menopausal Syndrome Problem Active [facility] Hypertensi ve disorder Hypertensi ve Disorder Problem Active [facility] Allergies, Adverse Reactions, Alerts Allergy Name Allergy Type Status Severity Reaction(s) Onset Date Inactive Date Treating Clinician Comments Source Lexapro Allergy to substanc e Active Other 01-11 00:00: 00 [facility] Codeine Allergy to substanc e Active 10-09 00:00: 00 [facility] MOLD-YEA ST-DUST Allergy to substanc e Active 10-09 00:00: 00 [facility] Codeine Allergy to substanc e Active Other 10-07 00:00: 00 [facility] codeine DA Active U 03-06 00:00: 00 [facility] Not Converte d 316. See Text. DA Active U 03-06 00:00: 00 [facility] Predniso ne Allergy to substanc e Active Other [facility] Lactose Allergy to substanc e Active Other [facility] Escitalo pram Allergy to substanc e Active [facility] Social History Smoking Status Start Date Stop Date Source Never Smoker [facility] Medications Ordered Medication Name Filled Medication Name Start Date Stop Date Current Medication? Ordering Clinician Indication Dosage Frequency Signature (SIG) Comments Components Source calcium-vit [place] D3-vitamin K 500 mg-500 unit-40 mcg chewable tablet calcium-vit [place] D3-vitamin K 500 mg-500 unit-40 mcg chewable tablet 1 Tablet(s) Oral two times a day calcium-vit [place] D3-vitamin K 500 mg-500 unit-40 mcg chewable tablet calcium-vit [place] D3-vitamin K 500 mg-500 unit-40 mcg chewable tablet 1 Tablet(s) Oral two times a day 02-15 00:00: 00 No calcium-vi tamin D3-vitamin K 500 mg-500 unit-40 mcg chewable tablet calcium-vi tamin D3-vitamin K 500 mg-500 unit-40 mcg chewable tablet 1 Tablet(s) Oral two times a day [facility] Probiotic Blend 2 billion cell-50 mg capsule Probiotic Blend 2 million cell-50 mg capsule 1 Capsule(s) Oral two times a day Probiotic Blend 2 billion cell-50 mg capsule Probiotic Blend 2 million cell-50 mg capsule 1 Capsule(s) Oral two times a day 02-15 00:00: 00 No Probiotic Blend 2 billion cell-50 mg capsule Probiotic Blend 2 million cell-50 mg capsule 1 Capsule(s) Oral two times a day [facility] calcium-vit [place] D3-vitamin K 500 mg-500 unit-40 mcg chewable tablet calcium-vit [place] D3-vitamin K 500 mg-500 unit-40 mcg chewable tablet 1 Tablet(s) Oral two times a day calcium-vit [place] D3-vitamin K 500 mg-500 unit-40 mcg chewable tablet calcium-vit [place] D3-vitamin K 500 mg-500 unit-40 mcg chewable tablet 1 Tablet(s) Oral two times a day 02-15 00:00: 00 No calcium-vi tamin D3-vitamin K 500 mg-500 unit-40 mcg chewable tablet calcium-vi tamin D3-vitamin K 500 mg-500 unit-40 mcg chewable tablet 1 Tablet(s) Oral two times a day [facility] Probiotic Blend 2 billion cell-50 mg capsule Probiotic Blend 2 million cell-50 mg capsule 1 Capsule(s) Oral two times a day Probiotic Blend 2 billion cell-50 mg capsule Probiotic Blend 2 million cell-50 mg capsule 1 Capsule(s) Oral two times a day 02-15 00:00: 00 No Probiotic Blend 2 billion cell-50 mg capsule Probiotic Blend 2 million cell-50 mg capsule 1 Capsule(s) Oral two times a day [facility] calcium-vit [place] D3-vitamin K 500 mg-500 unit-40 mcg chewable tablet calcium-vit [place] D3-vitamin K 500 mg-500 unit-40 mcg chewable tablet 1 Tablet(s) Oral two times a day calcium-vit [place] D3-vitamin K 500 mg-500 unit-40 mcg chewable tablet calcium-vit [place] D3-vitamin K 500 mg-500 unit-40 mcg chewable tablet 1 Tablet(s) Oral two times a day 02-15 00:00: 00 No calcium-vi tamin D3-vitamin K 500 mg-500 unit-40 mcg chewable tablet calcium-vi tamin D3-vitamin K 500 mg-500 unit-40 mcg chewable tablet 1 Tablet(s) Oral two times a day [facility] Probiotic Blend 2 billion cell-50 mg capsule Probiotic Blend 2 million cell-50 mg capsule 1 Capsule(s) Oral two times a day Probiotic Blend 2 billion cell-50 mg capsule Probiotic Blend 2 million cell-50 mg capsule 1 Capsule(s) Oral two times a day 02-15 00:00: 00 No Probiotic Blend 2 billion cell-50 mg capsule Probiotic Blend 2 million cell-50 mg capsule 1 Capsule(s) Oral two times a day [facility] calcium-vit [place] D3-vitamin K 500 mg-500 unit-40 mcg chewable tablet calcium-vit [place] D3-vitamin K 500 mg-500 unit-40 mcg chewable tablet 1 Tablet(s) Oral two times a day calcium-vit [place] D3-vitamin K 500 mg-500 unit-40 mcg chewable tablet calcium-vit [place] D3-vitamin K 500 mg-500 unit-40 mcg chewable tablet 1 Tablet(s) Oral two times a day 02-15 00:00: 00 No calcium-vi tamin D3-vitamin K 500 mg-500 unit-40 mcg chewable tablet calcium-vi tamin D3-vitamin K 500 mg-500 unit-40 mcg chewable tablet 1 Tablet(s) Oral two times a day [facility] Probiotic Blend 2 billion cell-50 mg capsule Probiotic Blend 2 million cell-50 mg capsule 1 Capsule(s) Oral two times a day Probiotic Blend 2 billion cell-50 mg capsule Probiotic Blend 2 million cell-50 mg capsule 1 Capsule(s) Oral two times a day 02-15 00:00: 00 No Probiotic Blend 2 billion cell-50 mg capsule Probiotic Blend 2 million cell-50 mg capsule 1 Capsule(s) Oral two times a day [facility] calcium-vit [place] D3-vitamin K 500 mg-500 unit-40 mcg chewable tablet calcium-vit [place] D3-vitamin K 500 mg-500 unit-40 mcg chewable tablet 1 Tablet(s) Oral two times a day calcium-vit [place] D3-vitamin K 500 mg-500 unit-40 mcg chewable tablet calcium-vit [place] D3-vitamin K 500 mg-500 unit-40 mcg chewable tablet 1 Tablet(s) Oral two times a day 02-15 00:00: 00 No calcium-vi tamin D3-vitamin K 500 mg-500 unit-40 mcg chewable tablet calcium-vi tamin D3-vitamin K 500 mg-500 unit-40 mcg chewable tablet 1 Tablet(s) Oral two times a day [facility] Probiotic Blend 2 billion cell-50 mg capsule Probiotic Blend 2 million cell-50 mg capsule 1 Capsule(s) Oral two times a day Probiotic Blend 2 billion cell-50 mg capsule Probiotic Blend 2 million cell-50 mg capsule 1 Capsule(s) Oral two times a day 02-15 00:00: 00 No Probiotic Blend 2 billion cell-50 mg capsule Probiotic Blend 2 million cell-50 mg capsule 1 Capsule(s) Oral two times a day [facility] calcium-vit [place] D3-vitamin K 500 mg-500 unit-40 mcg chewable tablet calcium-vit [place] D3-vitamin K 500 mg-500 unit-40 mcg chewable tablet 1 Tablet(s) Oral two times a day calcium-vit [place] D3-vitamin K 500 mg-500 unit-40 mcg chewable tablet calcium-vit [place] D3-vitamin K 500 mg-500 unit-40 mcg chewable tablet 1 Tablet(s) Oral two times a day 02-15 00:00: 00 No calcium-vi tamin D3-vitamin K 500 mg-500 unit-40 mcg chewable tablet calcium-vi tamin D3-vitamin K 500 mg-500 unit-40 mcg chewable tablet 1 Tablet(s) Oral two times a day [facility] Probiotic Blend 2 billion cell-50 mg capsule Probiotic Blend 2 million cell-50 mg capsule 1 Capsule(s) Oral two times a day Probiotic Blend 2 billion cell-50 mg capsule Probiotic Blend 2 million cell-50 mg capsule 1 Capsule(s) Oral two times a day 02-15 00:00: 00 No Probiotic Blend 2 billion cell-50 mg capsule Probiotic Blend 2 million cell-50 mg capsule 1 Capsule(s) Oral two times a day [facility] multivitami n capsule multivitami n capsule 11-07 00:00: 00 No multivitam in capsule [facility] multivitami n capsule multivitami n capsule 11-07 00:00: 00 No multivitam in capsule [facility] multivitami n capsule multivitami n capsule 11-07 00:00: 00 No multivitam in capsule [facility] multivitami n capsule multivitami n capsule 11-07 00:00: 00 No multivitam in capsule [facility] multivitami n capsule multivitami n capsule 11-07 00:00: 00 No multivitam in capsule [facility] multivitami n capsule multivitami n capsule 11-07 00:00: 00 No multivitam in capsule [facility] pantoprazol e 40 mg tablet,seb yed release TK 1 T PO D pantoprazol e 40 mg tablet,seb yed release TK 1 T PO D No pantoprazo le 40 mg tablet,del ayed release TK 1 T PO D [facility] pravastatin 20 mg tablet TK 1 T PO HS pravastatin 20 mg tablet TK 1 T PO HS No pravastati n 20 mg tablet TK 1 T PO HS [facility] sertraline 50 mg tablet sertraline 50 mg tablet No sertraline 50 mg tablet [facility] Synthroid 50 mcg tablet TK 1 T PO QAM. Synthroid 50 mcg tablet TK 1 T PO QAM. No Synthroid 50 mcg tablet TK 1 T PO QAM. [facility] venlafaxine ER 37.5 mg capsule,ext ended release 24 hr venlafaxine ER 37.5 mg capsule,ext ended release 24 hr No venlafaxin e ER 37.5 mg capsule,ex tended release 24 hr [facility] venlafaxine ER 75 mg capsule,ext ended release 24 hr venlafaxine ER 75 mg capsule,ext ended release 24 hr No venlafaxin e ER 75 mg capsule,ex tended release 24 hr [facility] amlodipine 5 mg tablet TAKE 1 TABLET BY MOUTH EVERY DAY amlodipine 5 mg tablet TAKE 1 TABLET BY MOUTH EVERY DAY No amlodipine 5 mg tablet TAKE 1 TABLET BY MOUTH EVERY DAY [facility] azelastine 137 mcg (0.1 %) nasal spray aerosol azelastine 137 mcg (0.1 %) nasal spray aerosol No azelastine 137 mcg (0.1 %) nasal spray aerosol [facility] estradiol 0.0375 mg/24 hr semiweekly transdermal patch APPLY ONE PATCH TRANSDERMAL LY TWICE WEEKLY DIRECTED estradiol 0.0375 mg/24 hr semiweekly transdermal patch APPLY ONE PATCH TRANSDERMAL LY TWICE WEEKLY DIRECTED No estradiol 0.0375 mg/24 hr semiweekly transderma l patch APPLY ONE PATCH TRANSDERMA LLY TWICE WEEKLY DIRECTED [facility] levocetiriz ine 5 mg tablet TK 1 T PO D levocetiriz ine 5 mg tablet TK 1 T PO D No levocetiri zine 5 mg tablet TK [address] [facility] montelukast 10 mg tablet TAKE 1 TABLET BY MOUTH EVERY DAY IN THE EVENING montelukast 10 mg tablet TAKE 1 TABLET BY MOUTH EVERY DAY IN THE EVENING No montelukas t 10 mg tablet TAKE 1 TABLET BY MOUTH EVERY DAY IN THE EVENING [facility] olmesartan 40 mg tablet TAKE 1 TABLET BY MOUTH EVERY DAY olmesartan 40 mg tablet TAKE 1 TABLET BY MOUTH EVERY DAY No olmesartan 40 mg tablet TAKE 1 TABLET BY MOUTH EVERY DAY [facility] pantoprazol e 40 mg tablet,seb yed release TK 1 T PO D pantoprazol e 40 mg tablet,seb yed release TK 1 T PO D No pantoprazo le 40 mg tablet,del ayed release TK [address] [facility] pravastatin 20 mg tablet TK 1 T PO HS pravastatin 20 mg tablet TK 1 T PO HS No pravastati n 20 mg tablet TK [address] [facility] sertraline 50 mg tablet sertraline 50 mg tablet No sertraline [address] [facility] Synthroid 50 mcg tablet TK 1 T PO QAM. Synthroid 50 mcg tablet TK 1 T PO QAM. No Synthroid 50 mcg tablet TK [address] [facility] venlafaxine ER 75 mg capsule,ext ended release 24 hr venlafaxine ER 75 mg capsule,ext ended release 24 hr No venlafaxin e ER 75 mg capsule,ex tended release [address] [facility] amlodipine 5 mg tablet TAKE 1 TABLET BY MOUTH EVERY DAY amlodipine 5 mg tablet TAKE 1 TABLET BY MOUTH EVERY DAY No amlodipine 5 mg tablet TAKE 1 TABLET BY MOUTH EVERY DAY [facility] azelastine 137 mcg (0.1 %) nasal spray aerosol azelastine 137 mcg (0.1 %) nasal spray aerosol No azelastine 137 mcg (0.1 %) nasal spray aerosol [facility] docusate sodium 100 mg capsule TAKE 2 CAPSULES BY MOUTH EVERY DAY FOR 50 DAYS NEEDED docusate sodium 100 mg capsule TAKE 2 CAPSULES BY MOUTH EVERY DAY FOR 50 DAYS NEEDED No docusate sodium 100 mg capsule TAKE 2 CAPSULES BY MOUTH EVERY DAY FOR [address] [facility] estradiol 0.0375 mg/24 hr semiweekly transdermal patch APPLY ONE PATCH TRANSDERMAL LY TWICE WEEKLY DIRECTED estradiol 0.0375 mg/24 hr semiweekly transdermal patch APPLY ONE PATCH TRANSDERMAL LY TWICE WEEKLY DIRECTED No estradiol 0.0375 mg/24 hr semiweekly transderma l patch APPLY ONE PATCH TRANSDERMA LLY TWICE WEEKLY DIRECTED [facility] ibuprofen 800 mg tablet TAKE 1 TABLET BY MOUTH EVERY 8 HOURS NEEDED ibuprofen 800 mg tablet TAKE 1 TABLET BY MOUTH EVERY 8 HOURS NEEDED No ibuprofen 800 mg tablet TAKE 1 TABLET BY MOUTH EVERY [address] [facility] levocetiriz ine 5 mg tablet TK 1 T PO D levocetiriz ine 5 mg tablet TK 1 T PO D No levocetiri zine 5 mg tablet TK [address] [facility] montelukast 10 mg tablet TAKE 1 TABLET BY MOUTH EVERY DAY IN THE EVENING montelukast 10 mg tablet TAKE 1 TABLET BY MOUTH EVERY DAY IN THE EVENING No montelukas t 10 mg tablet TAKE 1 TABLET BY MOUTH EVERY DAY IN THE EVENING [facility] olmesartan 40 mg tablet TAKE 1 TABLET BY MOUTH EVERY DAY olmesartan 40 mg tablet TAKE 1 TABLET BY MOUTH EVERY DAY No olmesartan 40 mg tablet TAKE 1 TABLET BY MOUTH EVERY DAY [facility] pantoprazol e 40 mg tablet,seb yed release TK 1 T PO D pantoprazol e 40 mg tablet,seb yed release TK 1 T PO D No pantoprazo le 40 mg tablet,del ayed release TK [address] [facility] pravastatin 20 mg tablet TK 1 T PO HS pravastatin 20 mg tablet TK 1 T PO HS No pravastati n 20 mg tablet TK [address] [facility] sertraline 50 mg tablet sertraline 50 mg tablet No sertraline [address] [facility] Synthroid 50 mcg tablet TK 1 T PO QAM. Synthroid 50 mcg tablet TK 1 T PO QAM. No Synthroid 50 mcg tablet TK [address] [facility] tramadol 50 mg tablet TAKE 1 TABLET BY MOUTH EVERY 6 HOURS NEEDED tramadol 50 mg tablet TAKE 1 TABLET BY MOUTH EVERY 6 HOURS NEEDED No tramadol 50 mg tablet TAKE 1 TABLET BY MOUTH EVERY [address] [facility] venlafaxine ER 75 mg capsule,ext ended release 24 hr venlafaxine ER 75 mg capsule,ext ended release 24 hr No venlafaxin e ER 75 mg capsule,ex tended release [address] [facility] amlodipine 5 mg tablet TAKE 1 TABLET BY MOUTH EVERY DAY amlodipine 5 mg tablet TAKE 1 TABLET BY MOUTH EVERY DAY No amlodipine 5 mg tablet TAKE 1 TABLET BY MOUTH EVERY DAY [facility] amoxicillin 875 mg-potassiu m clavulanate 125 mg tablet TAKE 1 TABLET BY MOUTH EVERY 12 HOURS FOR 7 DAYS amoxicillin 875 mg-potassiu m clavulanate 125 mg tablet TAKE 1 TABLET BY MOUTH EVERY 12 HOURS FOR 7 DAYS No amoxicilli n 875 mg-potassi um clavulanat e 125 mg tablet TAKE 1 TABLET BY MOUTH EVERY [address] FOR [address] [facility] azelastine 137 mcg (0.1 %) nasal spray aerosol azelastine 137 mcg (0.1 %) nasal spray aerosol No azelastine 137 mcg (0.1 %) nasal spray aerosol [facility] docusate sodium 100 mg capsule TAKE 2 CAPSULES BY MOUTH EVERY DAY FOR 50 DAYS NEEDED docusate sodium 100 mg capsule TAKE 2 CAPSULES BY MOUTH EVERY DAY FOR 50 DAYS NEEDED No docusate sodium 100 mg capsule TAKE 2 CAPSULES BY MOUTH EVERY DAY FOR [address] [facility] estradiol 0.0375 mg/24 hr semiweekly transdermal patch APPLY ONE PATCH TRANSDERMAL LY TWICE WEEKLY DIRECTED estradiol 0.0375 mg/24 hr semiweekly transdermal patch APPLY ONE PATCH TRANSDERMAL LY TWICE WEEKLY DIRECTED No estradiol 0.0375 mg/24 hr semiweekly transderma l patch APPLY ONE PATCH TRANSDERMA LLY TWICE WEEKLY DIRECTED [facility] fluconazole 200 mg tablet Take 1 tablet(s) today by oral route, repeat dose in 3 days fluconazole 200 mg tablet Take 1 tablet(s) today by oral route, repeat dose in 3 days No fluconazol e 200 mg tablet Take 1 tablet(s) today by oral route, repeat dose in [address] [facility] fluticasone propionate 50 mcg/actuati on nasal spray,suspe nsion INSTILL 1 SPRAY IN EACH NOSTRIL DAILY. DIRECT SPRAY OUTWARD TOWARDS EAR fluticasone propionate 50 mcg/actuati on nasal spray,suspe nsion INSTILL 1 SPRAY IN EACH NOSTRIL DAILY. DIRECT SPRAY OUTWARD TOWARDS EAR No fluticason e propionate 50 mcg/actuat ion nasal spray,susp ension INSTILL 1 SPRAY IN EACH NOSTRIL DAILY. DIRECT SPRAY OUTWARD TOWARDS EAR [facility] levocetiriz ine 5 mg tablet TK 1 T PO D levocetiriz ine 5 mg tablet TK 1 T PO D No levocetiri zine 5 mg tablet TK [address] [facility] montelukast 10 mg tablet TAKE 1 TABLET BY MOUTH EVERY DAY IN THE EVENING montelukast 10 mg tablet TAKE 1 TABLET BY MOUTH EVERY DAY IN THE EVENING No montelukas t 10 mg tablet TAKE 1 TABLET BY MOUTH EVERY DAY IN THE EVENING [facility] olmesartan 40 mg tablet TAKE 1 TABLET BY MOUTH EVERY DAY olmesartan 40 mg tablet TAKE 1 TABLET BY MOUTH EVERY DAY No olmesartan 40 mg tablet TAKE 1 TABLET BY MOUTH EVERY DAY [facility] pantoprazol e 40 mg tablet,seb yed release TK 1 T PO D pantoprazol e 40 mg tablet,seb yed release TK 1 T PO D No pantoprazo le 40 mg tablet,del ayed release TK [address] [facility] pravastatin 20 mg tablet TK 1 T PO HS pravastatin 20 mg tablet TK 1 T PO HS No pravastati n 20 mg tablet TK [address] [facility] Synthroid 50 mcg tablet TK 1 T PO QAM. Synthroid 50 mcg tablet TK 1 T PO QAM. No Synthroid 50 mcg tablet TK [address] [facility] amlodipine 5 mg tablet TAKE 1 TABLET BY MOUTH EVERY DAY amlodipine 5 mg tablet TAKE 1 TABLET BY MOUTH EVERY DAY No amlodipine 5 mg tablet TAKE 1 TABLET BY MOUTH EVERY DAY [facility] amoxicillin 875 mg-potassiu m clavulanate 125 mg tablet TAKE 1 TABLET BY MOUTH EVERY 12 HOURS FOR 7 DAYS amoxicillin 875 mg-potassiu m clavulanate 125 mg tablet TAKE 1 TABLET BY MOUTH EVERY 12 HOURS FOR 7 DAYS No amoxicilli n 875 mg-potassi um clavulanat e 125 mg tablet TAKE 1 TABLET BY MOUTH EVERY 12 HOU[address] FOR [address] [facility] azelastine 137 mcg (0.1 %) nasal spray aerosol azelastine 137 mcg (0.1 %) nasal spray aerosol No azelastine 137 mcg (0.1 %) nasal spray [facility] Self Test kit TEST DIRECTED TODAY BinaxNOW COVID-19 Ag Self Test kit TEST DIRECTED TODAY No [employer]axNOW COVID-19 Ag Self Test kit TEST DIRECTED TODAY [facility] docusate sodium 100 mg capsule TAKE 2 CAPSULES BY MOUTH EVERY DAY FOR 50 DAYS NEEDED docusate sodium 100 mg capsule TAKE 2 CAPSULES BY MOUTH EVERY DAY FOR 50 DAYS NEEDED No docusate sodium 100 mg capsule TAKE 2 CAPSULES BY MOUTH EVERY DAY FOR 50 DAYS NEEDED [facility] estradiol 0.0375 mg/24 hr semiweekly transdermal patch Apply 1 patch twice a week by transdermal route as directed for 90 days. estradiol 0.0375 mg/24 hr semiweekly transdermal patch Apply 1 patch twice a week by transdermal route as directed for 90 days. No 1patch( es) Q3.5D estradiol 0.0375 mg/24 hr semiweekly transderma l patch Apply 1 patch twice a week by transderma l route as directed for [address] [facility] fluconazole 200 mg tablet Take 1 tablet(s) today by oral route, repeat dose in 3 days fluconazole 200 mg tablet Take 1 tablet(s) today by oral route, repeat dose in 3 days No fluconazol e 200 mg tablet Take 1 tablet(s) today by oral route, repeat dose in [address] [facility] fluticasone propionate 50 mcg/actuati on nasal spray,suspe nsion USE 1 SPRAY IN EACH NOSTRIL TWICE DAILY fluticasone propionate 50 mcg/actuati on nasal spray,suspe nsion USE 1 SPRAY IN EACH NOSTRIL TWICE DAILY No fluticason e propionate 50 mcg/actuat ion nasal spray,susp ension USE 1 SPRAY IN EACH NOSTRIL TWICE DAILY [facility] levocetiriz ine 5 mg tablet TK 1 T PO D levocetiriz ine 5 mg tablet TK 1 T PO D No levocetiri zine 5 mg tablet TK [address] [facility] montelukast 10 mg tablet TAKE 1 TABLET BY MOUTH EVERY DAY IN THE EVENING montelukast 10 mg tablet TAKE 1 TABLET BY MOUTH EVERY DAY IN THE EVENING No montelukas t 10 mg tablet TAKE 1 TABLET BY MOUTH EVERY DAY IN THE EVENING [facility] nystatin-tr iamcinolone 100,000 unit/g-0.1 % topical cream APPLY TO THE AFFECTED AREA(S) BY TOPICAL ROUTE 2 TIMES PER DAY IN THEMORNING AND EVENING nystatin-tr iamcinolone 100,000 unit/g-0.1 % topical cream APPLY TO THE AFFECTED AREA(S) BY TOPICAL ROUTE 2 TIMES PER DAY IN THEMORNING AND EVENING No nystatin-t riamcinolo ne 100,000 unit/g-0.1 % topical cream APPLY TO THE AFFECTED AREA(S) BY TOPICAL ROUTE 2 TIMES PER DAY IN THEMORNING AND EVENING [facility] olmesartan 40 mg tablet TAKE 1 TABLET BY MOUTH EVERY DAY olmesartan 40 mg tablet TAKE 1 TABLET BY MOUTH EVERY DAY No olmesartan 40 mg tablet TAKE 1 TABLET BY MOUTH EVERY DAY [facility] pantoprazol e 40 mg tablet,seb yed release TK 1 T PO D pantoprazol e 40 mg tablet,seb yed release TK 1 T PO D No pantoprazo le 40 mg tablet,del ayed release TK [address] [facility] pravastatin 20 mg tablet TK 1 T PO HS pravastatin 20 mg tablet TK 1 T PO HS No pravastati n 20 mg tablet TK [address] [facility] Synthroid 50 mcg tablet TAKE 1 TABLET BY MOUTH EVERY MORNING Synthroid 50 mcg tablet TAKE 1 TABLET BY MOUTH EVERY MORNING No Synthroid 50 mcg tablet TAKE 1 TABLET BY MOUTH EVERY MORNING [facility] amlodipine 5 mg tablet TAKE 1 TABLET BY MOUTH EVERY DAY amlodipine 5 mg tablet TAKE 1 TABLET BY MOUTH EVERY DAY No amlodipine 5 mg tablet TAKE 1 TABLET BY MOUTH EVERY DAY [facility] azelastine 137 mcg (0.1 %) nasal spray aerosol azelastine 137 mcg (0.1 %) nasal spray aerosol No azelastine 137 mcg (0.1 %) nasal spray aerosol [facility] estradiol 0.0375 mg/24 hr semiweekly transdermal patch APPLY ONE PATCH TRANSDERMAL LY TWICE WEEKLY DIRECTED estradiol 0.0375 mg/24 hr semiweekly transdermal patch APPLY ONE PATCH TRANSDERMAL LY TWICE WEEKLY DIRECTED No estradiol 0.0375 mg/24 hr semiweekly transderma l patch APPLY ONE PATCH TRANSDERMA LLY TWICE WEEKLY DIRECTED [facility] levocetiriz ine 5 mg tablet TK 1 T PO D levocetiriz ine 5 mg tablet TK 1 T PO D No levocetiri zine 5 mg tablet TK [address] [facility] montelukast 10 mg tablet TAKE 1 TABLET BY MOUTH EVERY DAY IN THE EVENING montelukast 10 mg tablet TAKE 1 TABLET BY MOUTH EVERY DAY IN THE EVENING No montelukas t 10 mg tablet TAKE 1 TABLET BY MOUTH EVERY DAY IN THE EVENING [facility] nitrofurant oin monohydrate /macrocryst als 100 mg capsule 1 capsule today, 1 capsule after urodynamic testing nitrofurant oin monohydrate /macrocryst als 100 mg capsule 1 capsule today, 1 capsule after urodynamic testing No nitrofuran toin monohydrat e/macrocry stals 100 mg capsule 1 capsule today, 1 capsule after urodynamic testing [facility] olmesartan 40 mg tablet TAKE 1 TABLET BY MOUTH EVERY DAY olmesartan 40 mg tablet TAKE 1 TABLET BY MOUTH EVERY DAY No olmesartan 40 mg tablet TAKE 1 TABLET BY MOUTH EVERY DAY [facility] pantoprazol e 40 mg tablet,seb yed release TK 1 T PO D pantoprazol e 40 mg tablet,seb yed release TK 1 T PO D No pantoprazo le 40 mg tablet,del ayed release TK [address] [facility] pravastatin 20 mg tablet TK 1 T PO HS pravastatin 20 mg tablet TK 1 T PO HS No pravastati n 20 mg tablet TK [address] [facility] sertraline 50 mg tablet sertraline 50 mg tablet No sertraline [address] [facility] Synthroid 50 mcg tablet TK 1 T PO QAM. Synthroid 50 mcg tablet TK 1 T PO QAM. No Synthroid 50 mcg tablet TK [address] [facility] amlodipine 5 mg tablet TAKE 1 TABLET BY MOUTH EVERY DAY amlodipine 5 mg tablet TAKE 1 TABLET BY MOUTH EVERY DAY No amlodipine 5 mg tablet TAKE 1 TABLET BY MOUTH EVERY DAY [facility] azelastine 137 mcg (0.1 %) nasal spray aerosol azelastine 137 mcg (0.1 %) nasal spray aerosol No azelastine 137 mcg (0.1 %) nasal spray aerosol [facility] estradiol 0.0375 mg/24 hr semiweekly transdermal patch APPLY ONE PATCH TRANSDERMAL LY TWICE WEEKLY DIRECTED estradiol 0.0375 mg/24 hr semiweekly transdermal patch APPLY ONE PATCH TRANSDERMAL LY TWICE WEEKLY DIRECTED No estradiol 0.0375 mg/24 hr semiweekly transderma l patch APPLY ONE PATCH TRANSDERMA LLY TWICE WEEKLY DIRECTED [facility] levocetiriz ine 5 mg tablet TK 1 T PO D levocetiriz ine 5 mg tablet TK 1 T PO D No levocetiri zine 5 mg tablet TK [address] [facility] montelukast 10 mg tablet TAKE 1 TABLET BY MOUTH EVERY DAY IN THE EVENING montelukast 10 mg tablet TAKE 1 TABLET BY MOUTH EVERY DAY IN THE EVENING No montelukas t 10 mg tablet TAKE 1 TABLET BY MOUTH EVERY DAY IN THE EVENING [facility] nitrofurant oin monohydrate /macrocryst als 100 mg capsule 1 capsule today, 1 capsule after urodynamic testing nitrofurant oin monohydrate /macrocryst als 100 mg capsule 1 capsule today, 1 capsule after urodynamic testing No nitrofuran toin monohydrat e/macrocry stals 100 mg capsule 1 capsule today, 1 capsule after urodynamic testing [facility] olmesartan 40 mg tablet TAKE 1 TABLET BY MOUTH EVERY DAY olmesartan 40 mg tablet TAKE 1 TABLET BY MOUTH EVERY DAY No olmesartan 40 mg tablet TAKE 1 TABLET BY MOUTH EVERY DAY [facility] amlodipine 5 mg tablet TAKE 1 TABLET BY MOUTH EVERY DAY amlodipine 5 mg tablet TAKE 1 TABLET BY MOUTH EVERY DAY No amlodipine 5 mg tablet TAKE 1 TABLET BY MOUTH EVERY DAY [facility] estradiol 0.0375 mg/24 hr semiweekly transdermal patch estradiol 0.0375 mg/24 hr semiweekly transdermal patch No estradiol 0.0375 mg/24 hr semiweekly transderma l patch [facility] fluconazole 200 mg tablet TAKE 1 TABLET BY MOUTH TODAY AND REPEAT IN 3 DAYS fluconazole 200 mg tablet TAKE 1 TABLET BY MOUTH TODAY AND REPEAT IN 3 DAYS No fluconazol e 200 mg tablet TAKE 1 TABLET BY MOUTH TODAY AND REPEAT IN [address] [facility] fluticasone propionate 50 mcg/actuati on nasal spray,suspe nsion INSTILL 2 SPRAYS IN EACH NOSTRIL DAILY. DIRECT SPRAY OUTWARD TOWARDS EAR fluticasone propionate 50 mcg/actuati on nasal spray,suspe nsion INSTILL 2 SPRAYS IN EACH NOSTRIL DAILY. DIRECT SPRAY OUTWARD TOWARDS EAR No fluticason e propionate 50 mcg/actuat ion nasal spray,susp ension INSTILL 2 SPRAYS IN EACH NOSTRIL DAILY. DIRECT SPRAY OUTWARD TOWARDS EAR [facility] montelukast 10 mg tablet TAKE 1 TABLET BY MOUTH EVERY DAY IN THE EVENING montelukast 10 mg tablet TAKE 1 TABLET BY MOUTH EVERY DAY IN THE EVENING No montelukas t 10 mg tablet TAKE 1 TABLET BY MOUTH EVERY DAY IN THE EVENING [facility] olmesartan 40 mg tablet TAKE 1 TABLET BY MOUTH EVERY DAY olmesartan 40 mg tablet TAKE 1 TABLET BY MOUTH EVERY DAY No olmesartan 40 mg tablet TAKE 1 TABLET BY MOUTH EVERY DAY [facility] pantoprazol e 40 mg tablet,seb yed release TAKE 1 TABLET DAILY pantoprazol e 40 mg tablet,seb yed release TAKE 1 TABLET DAILY No pantoprazo le 40 mg tablet,del ayed release TAKE [address] [facility] pravastatin 20 mg tablet TAKE 1 TABLET NIGHTLY AT BEDTIME pravastatin 20 mg tablet TAKE 1 TABLET NIGHTLY AT BEDTIME No pravastati n 20 mg tablet TAKE 1 TABLET NIGHTLY AT BEDTIME [facility] Synthroid 50 mcg tablet TAKE 1 TABLET EVERY MORNING Synthroid 50 mcg tablet TAKE 1 TABLET EVERY MORNING No Synthroid 50 mcg tablet TAKE [address] [facility] amlodipine 5 mg tablet TAKE 1 TABLET BY MOUTH EVERY DAY amlodipine 5 mg tablet TAKE 1 TABLET BY MOUTH EVERY DAY No amlodipine 5 mg tablet TAKE 1 TABLET BY MOUTH EVERY DAY [facility] fluticasone propionate 50 mcg/actuati on nasal spray,suspe nsion USE 1 SPRAY IN EACH NOSTRIL TWICE DAILY fluticasone propionate 50 mcg/actuati on nasal spray,suspe nsion USE 1 SPRAY IN EACH NOSTRIL TWICE DAILY No fluticason e propionate 50 mcg/actuat ion nasal spray,susp ension USE 1 SPRAY IN EACH NOSTRIL TWICE DAILY [facility] Lyllana 0.0375 mg/24 hr transdermal patch Lyllana 0.0375 mg/24 hr transdermal patch No Lyllana 0.0375 mg/[address] l patch [facility] Metamucil 1 tsp bid Metamucil 1 tsp bid No Metamucil [address] [facility] montelukast 10 mg tablet TAKE 1 TABLET BY MOUTH EVERY DAY IN THE EVENING montelukast 10 mg tablet TAKE 1 TABLET BY MOUTH EVERY DAY IN THE EVENING No montelukas t 10 mg tablet TAKE 1 TABLET BY MOUTH EVERY DAY IN THE EVENING [facility] nystatin-tr iamcinolone 100,000 unit/g-0.1 % topical cream APPLY TOPICALLY TO THE AFFECTED AREA TWICE DAILY IN THE MORNING AND IN THE EVENING nystatin-tr iamcinolone 100,000 unit/g-0.1 % topical cream APPLY TOPICALLY TO THE AFFECTED AREA TWICE DAILY IN THE MORNING AND IN THE EVENING No nystatin-t riamcinolo ne 100,000 unit/g-0.1 % topical cream APPLY TOPICALLY TO THE AFFECTED AREA TWICE DAILY IN THE MORNING AND IN THE EVENING [facility] olmesartan 40 mg tablet TAKE 1 TABLET DAILY olmesartan 40 mg tablet TAKE 1 TABLET DAILY No olmesartan 40 mg tablet TAKE 1 TABLET DAILY [facility] pantoprazol e 40 mg tablet,seb yed release TAKE 1 TABLET DAILY pantoprazol e 40 mg tablet,seb yed release TAKE 1 TABLET DAILY No pantoprazo le 40 mg tablet,del ayed release TAKE 1 TABLET DAILY [facility] pravastatin 20 mg tablet TAKE 1 TABLET NIGHTLY AT BEDTIME pravastatin 20 mg tablet TAKE 1 TABLET NIGHTLY AT BEDTIME No pravastati n 20 mg tablet TAKE 1 TABLET NIGHTLY AT BEDTIME [facility] Synthroid 50 mcg tablet TAKE 1 TABLET BY MOUTH EVERY MORNING Synthroid 50 mcg tablet TAKE 1 TABLET BY MOUTH EVERY MORNING No Synthroid 50 mcg tablet TAKE 1 TABLET BY MOUTH EVERY MORNING [facility] terbinafine HCl 250 mg tablet terbinafine HCl 250 mg tablet 1 Tablet(s) ORAL take daily terbinafine HCl 250 mg tablet terbinafine HCl 250 mg tablet 1 Tablet(s) ORAL take daily No terbinafin e HCl 250 mg tablet terbinafin e HCl 250 mg tablet 1 Tablet(s) ORAL take daily [facility] amlodipine 5 mg tablet TAKE 1 TABLET BY MOUTH EVERY DAY amlodipine 5 mg tablet TAKE 1 TABLET BY MOUTH EVERY DAY No amlodipine 5 mg tablet TAKE 1 TABLET BY MOUTH EVERY DAY [facility] escitalopra m 5 mg tablet Take 1 tablet every day by oral route for 30 days. escitalopra m 5 mg tablet Take 1 tablet every day by oral route for 30 days. No 1 Q1D escitalopr am 5 mg tablet Take 1 tablet every day by oral route for 30 days. [facility] estradiol 0.0375 mg/24 hr semiweekly transdermal patch estradiol 0.0375 mg/24 hr semiweekly transdermal patch No estradiol 0.0375 mg/24 hr semiweekly transderma l patch [facility] Metamucil 1 tsp bid Metamucil 1 tsp bid No Metamucil [address] [facility] montelukast 10 mg tablet TAKE 1 TABLET BY MOUTH EVERY DAY IN THE EVENING montelukast 10 mg tablet TAKE 1 TABLET BY MOUTH EVERY DAY IN THE EVENING No montelukas t 10 mg tablet TAKE 1 TABLET BY MOUTH EVERY DAY IN THE EVENING [facility] nystatin-tr iamcinolone 100,000 unit/g-0.1 % topical cream APPLY TOPICALLY TO THE AFFECTED AREA TWICE DAILY IN THE MORNING AND IN THE EVENING nystatin-tr iamcinolone 100,000 unit/g-0.1 % topical cream APPLY TOPICALLY TO THE AFFECTED AREA TWICE DAILY IN THE MORNING AND IN THE EVENING No nystatin-t riamcinolo ne 100,000 unit/g-0.1 % topical cream APPLY TOPICALLY TO THE AFFECTED AREA TWICE DAILY IN THE MORNING AND IN THE EVENING [facility] olmesartan 40 mg tablet TAKE 1 TABLET DAILY olmesartan 40 mg tablet TAKE 1 TABLET DAILY No olmesartan 40 mg tablet TAKE [address] [facility] pantoprazol e 40 mg tablet,seb yed release TAKE 1 TABLET DAILY pantoprazol e 40 mg tablet,seb yed release TAKE 1 TABLET DAILY No pantoprazo le 40 mg tablet,del ayed release TAKE [address] [facility] pravastatin 20 mg tablet TAKE 1 TABLET NIGHTLY AT BEDTIME pravastatin 20 mg tablet TAKE 1 TABLET NIGHTLY AT BEDTIME No pravastati n 20 mg tablet TAKE 1 TABLET NIGHTLY AT BEDTIME [facility] Synthroid 50 mcg tablet 1 po q AM Synthroid 50 mcg tablet 1 po q AM No Synthroid 50 mcg tablet [address] [facility] amlodipine 5 mg tablet 1 bid amlodipine 5 mg tablet 1 bid No amlodipine 5 mg tablet [address] [facility] doxycycline hyclate 100 mg capsule Take 1 capsule twice a day by oral route. doxycycline hyclate 100 mg capsule Take 1 capsule twice a day by oral route. No 1capsul e(s) BID doxycyclin e hyclate 100 mg capsule Take 1 capsule twice a day by oral route. [facility] estradiol 0.0375 mg/24 hr semiweekly transdermal patch estradiol 0.0375 mg/24 hr semiweekly transdermal patch No estradiol 0.0375 mg/24 hr semiweekly transderma l patch [facility] Metamucil 1 tsp bid Metamucil 1 tsp bid No Metamucil [address] [facility] montelukast 10 mg tablet TAKE 1 TABLET BY MOUTH EVERY DAY IN THE EVENING montelukast 10 mg tablet TAKE 1 TABLET BY MOUTH EVERY DAY IN THE EVENING No montelukas t 10 mg tablet TAKE 1 TABLET BY MOUTH EVERY DAY IN THE EVENING [facility] nystatin-tr iamcinolone 100,000 unit/g-0.1 % topical cream APPLY TOPICALLY TO THE AFFECTED AREA TWICE DAILY IN THE MORNING AND IN THE EVENING nystatin-tr iamcinolone 100,000 unit/g-0.1 % topical cream APPLY TOPICALLY TO THE AFFECTED AREA TWICE DAILY IN THE MORNING AND IN THE EVENING No nystatin-t riamcinolo ne 100,000 unit/g-0.1 % topical cream APPLY TOPICALLY TO THE AFFECTED AREA TWICE DAILY IN THE MORNING AND IN THE EVENING [facility] olmesartan 40 mg tablet TAKE 1 TABLET DAILY olmesartan 40 mg tablet TAKE 1 TABLET DAILY No olmesartan 40 mg tablet TAKE [address] [facility] pantoprazol e 40 mg tablet,seb yed release TAKE 1 TABLET DAILY pantoprazol e 40 mg tablet,seb yed release TAKE 1 TABLET DAILY No pantoprazo le 40 mg tablet,del ayed release TAKE [address] [facility] pravastatin 20 mg tablet TAKE 1 TABLET NIGHTLY AT BEDTIME pravastatin 20 mg tablet TAKE 1 TABLET NIGHTLY AT BEDTIME No pravastati n 20 mg tablet TAKE 1 TABLET NIGHTLY AT BEDTIME [facility] Synthroid 50 mcg tablet 1 po q AM Synthroid 50 mcg tablet 1 po q AM No Synthroid 50 mcg tablet [address] [facility] amlodipine 5 mg tablet 1 bid amlodipine 5 mg tablet 1 bid No amlodipine [address] mg [address] [facility] doxycycline hyclate 100 mg capsule TAKE 1 CAPSULE BY MOUTH TWICE DAILY doxycycline hyclate 100 mg capsule TAKE 1 CAPSULE BY MOUTH TWICE DAILY No doxycyclin e hyclate 100 mg capsule TAKE 1 CAPSULE BY MOUTH TWICE DAILY [facility] estradiol 0.0375 mg/24 hr semiweekly transdermal patch estradiol 0.0375 mg/24 hr semiweekly transdermal patch No estradiol 0.0375 mg/24 hr semiweekly transderma l patch [facility] Metamucil 1 tsp bid Metamucil 1 tsp bid No Metamucil 1 tsp bid [facility] methylpredn isolone 4 mg tablets in a dose pack FOLLOW PACKAGE DIRECTIONS methylpredn isolone 4 mg tablets in a dose pack FOLLOW PACKAGE DIRECTIONS No methylpred nisolone 4 mg tablets in a dose pack FOLLOW PACKAGE DIRECTIONS [facility] montelukast 10 mg tablet TAKE 1 TABLET BY MOUTH EVERY DAY IN THE EVENING montelukast 10 mg tablet TAKE 1 TABLET BY MOUTH EVERY DAY IN THE EVENING No montelukas t 10 mg tablet TAKE 1 TABLET BY MOUTH EVERY DAY IN THE EVENING [facility] nystatin-tr iamcinolone 100,000 unit/g-0.1 % topical cream APPLY TOPICALLY TO THE AFFECTED AREA TWICE DAILY IN THE MORNING AND IN THE EVENING nystatin-tr iamcinolone 100,000 unit/g-0.1 % topical cream APPLY TOPICALLY TO THE AFFECTED AREA TWICE DAILY IN THE MORNING AND IN THE EVENING No nystatin-t riamcinolo ne 100,000 unit/g-0.1 % topical cream APPLY TOPICALLY TO THE AFFECTED AREA TWICE DAILY IN THE MORNING AND IN THE EVENING [facility] olmesartan 40 mg tablet TAKE 1 TABLET DAILY olmesartan 40 mg tablet TAKE 1 TABLET DAILY No olmesartan 40 mg tablet TAKE 1 TABLET DAILY [facility] pantoprazol e 40 mg tablet,seb yed release TAKE 1 TABLET DAILY pantoprazol e 40 mg tablet,seb yed release TAKE 1 TABLET DAILY No pantoprazo le 40 mg tablet,del ayed release TAKE 1 TABLET DAILY [facility] pravastatin 20 mg tablet TAKE 1 TABLET NIGHTLY AT BEDTIME pravastatin 20 mg tablet TAKE 1 TABLET NIGHTLY AT BEDTIME No pravastati n 20 mg tablet TAKE 1 TABLET NIGHTLY AT BEDTIME [facility] Synthroid 50 mcg tablet 1 po q AM Synthroid 50 mcg tablet 1 po q AM No Synthroid 50 mcg tablet 1 po q AM [facility] alprazolam 0.25 mg tablet 1/2 tablet po q 8 hours prn severe anxiety alprazolam 0.25 mg tablet 1/2 tablet po q 8 hours prn severe anxiety No alprazolam 0.25 mg tablet 1/2 tablet po q 8 hours prn severe anxiety [facility] amlodipine 5 mg tablet TAKE 1 TABLET BY MOUTH TWICE DAILY amlodipine 5 mg tablet TAKE 1 TABLET BY MOUTH TWICE DAILY No amlodipine 5 mg tablet TAKE 1 TABLET BY MOUTH TWICE DAILY [facility] doxycycline hyclate 100 mg capsule TAKE 1 CAPSULE BY MOUTH TWICE DAILY doxycycline hyclate 100 mg capsule TAKE 1 CAPSULE BY MOUTH TWICE DAILY No doxycyclin e hyclate 100 mg capsule TAKE 1 CAPSULE BY MOUTH TWICE DAILY [facility] estradiol 0.0375 mg/24 hr semiweekly transdermal patch estradiol 0.0375 mg/24 hr semiweekly transdermal patch No estradiol 0.0375 mg/24 hr semiweekly transderma l patch [facility] Metamucil 1 tsp bid Metamucil 1 tsp bid No Metamucil [address] [facility] montelukast 10 mg tablet TAKE 1 TABLET BY MOUTH EVERY DAY IN THE EVENING montelukast 10 mg tablet TAKE 1 TABLET BY MOUTH EVERY DAY IN THE EVENING No montelukas t 10 mg tablet TAKE 1 TABLET BY MOUTH EVERY DAY IN THE EVENING [facility] nystatin-tr iamcinolone 100,000 unit/g-0.1 % topical cream Apply externally bid prn itching nystatin-tr iamcinolone 100,000 unit/g-0.1 % topical cream Apply externally bid prn itching No nystatin-t riamcinolo ne 100,000 unit/g-0.1 % topical cream Apply externally bid prn itching [facility] olmesartan 40 mg tablet TAKE 1 TABLET DAILY olmesartan 40 mg tablet TAKE 1 TABLET DAILY No olmesartan 40 mg tablet TAKE 1 TABLET DAILY [facility] pantoprazol e 40 mg tablet,seb yed release TAKE 1 TABLET DAILY pantoprazol e 40 mg tablet,seb yed release TAKE 1 TABLET DAILY No pantoprazo le 40 mg tablet,del ayed release TAKE 1 TABLET DAILY [facility] pravastatin 20 mg tablet TAKE 1 TABLET NIGHTLY AT BEDTIME pravastatin 20 mg tablet TAKE 1 TABLET NIGHTLY AT BEDTIME No pravastati n 20 mg tablet TAKE 1 TABLET NIGHTLY AT BEDTIME [facility] Synthroid 50 mcg tablet 1 po q AM Synthroid 50 mcg tablet 1 po q AM No Synthroid 50 mcg tablet [address] [facility] terbinafine HCl 250 mg tablet TAKE 1 TABLET BY MOUTH EVERY DAY terbinafine HCl 250 mg tablet TAKE 1 TABLET BY MOUTH EVERY DAY No terbinafin e HCl 250 mg tablet TAKE 1 TABLET BY MOUTH EVERY DAY [facility] Immunizations Ordered Immunization Name Filled Immunization Name Date Status Comments Source influenza, unspecified formulation influenza, unspecified formulation 2022-07-19 00:00:[address] [facility] zoster recombinant zoster recombinant 2022-05-10 16:22:[address] [facility] zoster recombinant zoster recombinant 2022-05-10 16:22:[address] [facility] COVID-19 (SARS-COV-2) vaccine, unspecified COVID-19 (SARS-COV-2) vaccine, unspecified 2022-02-16 00:00:[address] [facility] COVID-19 (SARS-COV-2) vaccine, unspecified COVID-19 (SARS-COV-2) vaccine, unspecified 2022-02-16 00:00:[address] [facility] COVID-19, mRNA, LNP-S, PF, 100 mcg/0.5 mL dose (Moderna) COVID-19, mRNA, LNP-S, PF, 100 mcg/0.5 mL dose (Moderna) 2021-08-16 00:00:[address] [facility] COVID-19, mRNA, LNP-S, PF, 100 mcg/0.5 mL dose (Moderna) COVID-19, mRNA, LNP-S, PF, 100 mcg/0.5 mL dose (Moderna) 2021-08-16 00:00:[address] [facility] influenza, high-dose, quadrivalent influenza, high-dose, quadrivalent 2021-06-02 00:00:[address] [facility] influenza, high-dose, quadrivalent influenza, high-dose, quadrivalent 2021-06-02 00:00:[address] [facility] COVID-19, mRNA, LNP-S, PF, 100 mcg/0.5 mL dose (Moderna) COVID-19, mRNA, LNP-S, PF, 100 mcg/0.5 mL dose (Moderna) 2020-11-15 00:00:[address] [facility] COVID-19, mRNA, LNP-S, PF, 100 mcg/0.5 mL dose (Moderna) COVID-19, mRNA, LNP-S, PF, 100 mcg/0.5 mL dose (Moderna) 2020-11-15 00:00:[address] [facility] COVID-19, mRNA, LNP-S, PF, 100 mcg/0.5 mL dose (Moderna) COVID-19, mRNA, LNP-S, PF, 100 mcg/0.5 mL dose (Moderna) 2020-10-19 00:00:[address] [facility] COVID-19, mRNA, LNP-S, PF, 100 mcg/0.5 mL dose (Moderna) COVID-19, mRNA, LNP-S, PF, 100 mcg/0.5 mL dose (Moderna) 2020-10-19 00:00:[address] [facility] influenza, injectable, quadrivalent influenza, injectable, quadrivalent 2020-07-19 00:00:[address] [facility] influenza, injectable, quadrivalent influenza, injectable, quadrivalent 2020-07-19 00:00:[address] [facility] zoster recombinant zoster recombinant 2019-07-19 00:00:[address] [facility] zoster recombinant zoster recombinant 2019-07-19 00:00:[address] [facility] influenza, high dose seasonal influenza, high dose seasonal 2019-06-18 00:00:[address] [facility] influenza, high dose seasonal influenza, high dose seasonal 2019-06-18 00:00:[address] [facility] pneumococcal conjugate PCV 13 pneumococcal conjugate PCV 13 2018-07-25 00:00:[address] [facility] pneumococcal conjugate PCV 13 pneumococcal conjugate PCV 13 2018-07-25 00:00:[address] [facility] influenza, seasonal, injectable influenza, seasonal, injectable 2018-07-09 00:00:[address] [facility] influenza, seasonal, injectable influenza, seasonal, injectable 2018-07-09 00:00:[address] [facility] influenza, high dose seasonal influenza, high dose seasonal 2017-07-19 00:00:[address] [facility] influenza, high dose seasonal influenza, high dose seasonal 2017-07-19 00:00:[address] [facility] influenza, seasonal, injectable influenza, seasonal, injectable 2012-06-21 00:00:[address] [facility] influenza, seasonal, injectable influenza, seasonal, injectable 2012-06-21 00:00:[address] [facility] influenza, seasonal, injectable influenza, seasonal, injectable 2011-05-19 00:00:[address] [facility] influenza, seasonal, injectable influenza, seasonal, injectable 2011-05-19 00:00:[address] [facility] pneumococcal polysaccharide [id number] pneumococcal polysaccharide PPV23 2009-08-04 00:00:[address] [facility] pneumococcal polysaccharide PPV23 pneumococcal polysaccharide PPV23 2009-08-04 00:00:[address] [facility] zoster live zoster live 2006-09-19 00:00:[address] [facility] zoster live zoster live 2006-09-19 00:00:[address] [facility] zoster recombinant zoster recombinant Unknown Completed [facility] influenza, high-dose, quadrivalent - ML influenza, high-dose, quadrivalent - ML Unknown Completed [facility] COVID-19, mRNA, LNP-S, PF, 100 mcg/0.5 mL dose (Moderna) - ML COVID-19, mRNA, LNP-S, PF, 100 mcg/0.5 mL dose (Moderna) - ML Unknown Completed [facility] COVID-19, mRNA, LNP-S, PF, 100 mcg/0.5 mL dose (Moderna) - ML COVID-19, mRNA, LNP-S, PF, 100 mcg/0.5 mL dose (Moderna) - ML Unknown Completed [facility] influenza, high-dose, quadrivalent - ML influenza, high-dose, quadrivalent - ML Unknown Completed [facility] COVID-19, mRNA, LNP-S, PF, 100 mcg/0.5 mL dose (Moderna) - ML COVID-19, mRNA, LNP-S, PF, 100 mcg/0.5 mL dose (Moderna) - ML Unknown Completed [facility] COVID-19, mRNA, LNP-S, PF, 100 mcg/0.5 mL dose (Moderna) - ML COVID-19, mRNA, LNP-S, PF, 100 mcg/0.5 mL dose (Moderna) - ML Unknown Completed [facility] influenza, injectable, quadrivalent influenza, injectable, quadrivalent Unknown Completed [facility] zoster recombinant zoster recombinant Unknown Completed [facility] influenza, high dose seasonal influenza, high dose seasonal Unknown Completed [facility] pneumococcal conjugate PCV 13 pneumococcal conjugate PCV 13 Unknown Completed [facility] influenza, seasonal, injectable influenza, seasonal, injectable Unknown Completed [facility] influenza, high dose seasonal influenza, high dose seasonal Unknown Completed [facility] influenza, seasonal, injectable influenza, seasonal, injectable Unknown Completed [facility] influenza, seasonal, injectable influenza, seasonal, injectable Unknown Completed [facility] pneumococcal polysaccharide PPV23 pneumococcal polysaccharide PPV23 Unknown Completed [facility] zoster live zoster live Unknown Completed [facility] zoster recombinant zoster recombinant Unknown Completed [facility] influenza, unspecified formulation influenza, unspecified formulation Unknown Completed [facility] influenza, high-dose, quadrivalent - ML influenza, high-dose, quadrivalent - ML Unknown Completed [facility] COVID-19, mRNA, LNP-S, PF, 100 mcg/0.5 mL dose (Moderna) - ML COVID-19, mRNA, LNP-S, PF, 100 mcg/0.5 mL dose (Moderna) - ML Unknown Completed [facility] COVID-19, mRNA, LNP-S, PF, 100 mcg/0.5 mL dose (Moderna) - ML COVID-19, mRNA, LNP-S, PF, 100 mcg/0.5 mL dose (Moderna) - ML Unknown Completed [facility] influenza, high-dose, quadrivalent - ML influenza, high-dose, quadrivalent - ML Unknown Completed [facility] COVID-19, mRNA, LNP-S, PF, 100 mcg/0.5 mL dose (Moderna) - ML COVID-19, mRNA, LNP-S, PF, 100 mcg/0.5 mL dose (Moderna) - ML Unknown Completed [facility] COVID-19, mRNA, LNP-S, PF, 100 mcg/0.5 mL dose (Moderna) - ML COVID-19, mRNA, LNP-S, PF, 100 mcg/0.5 mL dose (Moderna) - ML Unknown Completed [facility] influenza, injectable, quadrivalent influenza, injectable, quadrivalent Unknown Completed [facility] zoster recombinant zoster recombinant Unknown Completed [facility] influenza, high dose seasonal influenza, high dose seasonal Unknown Completed [facility] pneumococcal conjugate PCV 13 pneumococcal conjugate PCV 13 Unknown Completed [facility] influenza, seasonal, injectable influenza, seasonal, injectable Unknown Completed [facility] influenza, high dose seasonal influenza, high dose seasonal Unknown Completed [facility] influenza, seasonal, injectable influenza, seasonal, injectable Unknown Completed [facility] influenza, seasonal, injectable influenza, seasonal, injectable Unknown Completed [facility] pneumococcal polysaccharide PPV23 pneumococcal polysaccharide PPV23 Unknown Completed [facility] zoster live zoster live Unknown Completed [facility] zoster recombinant zoster recombinant Unknown Completed [facility] influenza, unspecified formulation influenza, unspecified formulation Unknown Completed [facility] influenza, high-dose, quadrivalent - ML influenza, high-dose, quadrivalent - ML Unknown Completed [facility] COVID-19, mRNA, LNP-S, PF, 100 mcg/0.5 mL dose (Moderna) - ML COVID-19, mRNA, LNP-S, PF, 100 mcg/0.5 mL dose (Moderna) - ML Unknown Completed [facility] COVID-19, mRNA, LNP-S, PF, 100 mcg/0.5 mL dose (Moderna) - ML COVID-19, mRNA, LNP-S, PF, 100 mcg/0.5 mL dose (Moderna) - ML Unknown Completed [facility] influenza, high-dose, quadrivalent - ML influenza, high-dose, quadrivalent - ML Unknown Completed [facility] COVID-19, mRNA, LNP-S, PF, 100 mcg/0.5 mL dose (Moderna) - ML COVID-19, mRNA, LNP-S, PF, 100 mcg/0.5 mL dose (Moderna) - ML Unknown Completed [facility] COVID-19, mRNA, LNP-S, PF, 100 mcg/0.5 mL dose (Moderna) - ML COVID-19, mRNA, LNP-S, PF, 100 mcg/0.5 mL dose (Moderna) - ML Unknown Completed [facility] influenza, injectable, quadrivalent influenza, injectable, quadrivalent Unknown Completed [facility] zoster recombinant zoster recombinant Unknown Completed [facility] influenza, high dose seasonal influenza, high dose seasonal Unknown Completed [facility] pneumococcal conjugate PCV 13 pneumococcal conjugate PCV 13 Unknown Completed [facility] influenza, seasonal, injectable influenza, seasonal, injectable Unknown Completed [facility] influenza, high dose seasonal influenza, high dose seasonal Unknown Completed [facility] influenza, seasonal, injectable influenza, seasonal, injectable Unknown Completed [facility] influenza, seasonal, injectable influenza, seasonal, injectable Unknown Completed [facility] pneumococcal polysaccharide PPV23 pneumococcal polysaccharide PPV23 Unknown Completed [facility] zoster live zoster live Unknown Completed [facility] zoster recombinant zoster recombinant Unknown Completed [facility] influenza, unspecified formulation influenza, unspecified formulation Unknown Completed [facility] influenza, high-dose, quadrivalent - ML influenza, high-dose, quadrivalent - ML Unknown Completed [facility] COVID-19, mRNA, LNP-S, PF, 100 mcg/0.5 mL dose (Moderna) - ML COVID-19, mRNA, LNP-S, PF, 100 mcg/0.5 mL dose (Moderna) - ML Unknown Completed [facility] COVID-19, mRNA, LNP-S, PF, 100 mcg/0.5 mL dose (Moderna) - ML COVID-19, mRNA, LNP-S, PF, 100 mcg/0.5 mL dose (Moderna) - ML Unknown Completed [facility] influenza, high-dose, quadrivalent - ML influenza, high-dose, quadrivalent - ML Unknown Completed [facility] COVID-19, mRNA, LNP-S, PF, 100 mcg/0.5 mL dose (Moderna) - ML COVID-19, mRNA, LNP-S, PF, 100 mcg/0.5 mL dose (Moderna) - ML Unknown Completed [facility] COVID-19, mRNA, LNP-S, PF, 100 mcg/0.5 mL dose (Moderna) - ML COVID-19, mRNA, LNP-S, PF, 100 mcg/0.5 mL dose (Moderna) - ML Unknown Completed [facility] influenza, injectable, quadrivalent influenza, injectable, quadrivalent Unknown Completed [facility] zoster recombinant zoster recombinant Unknown Completed [facility] influenza, high dose seasonal influenza, high dose seasonal Unknown Completed [facility] pneumococcal conjugate PCV 13 pneumococcal conjugate PCV 13 Unknown Completed [facility] influenza, seasonal, injectable influenza, seasonal, injectable Unknown Completed [facility] influenza, high dose seasonal influenza, high dose seasonal Unknown Completed [facility] influenza, seasonal, injectable influenza, seasonal, injectable Unknown Completed [facility] influenza, seasonal, injectable influenza, seasonal, injectable Unknown Completed [facility] pneumococcal polysaccharide PPV23 pneumococcal polysaccharide PPV23 Unknown Completed [facility] zoster live zoster live Unknown Completed [facility] Vital Signs Vital Name Observation Time Observation Value Comments S ource Body Weight 2023-11-03 00:00:00 123.8 [lb_av] V illage [facility] Height 2023-11-03 00:00:00 63.5 [in_i] [facility] BP Systolic 2023-11-03 00:00:00 122 mm[Hg] [facility] BP Diastolic 2023-11-03 00:00:00 78 mm[Hg] [facility] BMI (Body Mass Index) 2023-11-03 00:00:00 21.6 kg/m2 [facility] ly Practice BMI (Body Mass Index) 2023-08-24 00:00:00 20.9 kg/m2 [facility] Height 2023-08-24 00:00:00 63.5 [in_i] [facility] age [facility] Body Weight 2023-08-24 00:00:00 120 [lb_av] [facility] BP Systolic 2023-07-24 00:00:00 142 mm[Hg] [facility] BP Diastolic 2023-07-24 00:00:00 76 mm[Hg] [facility] Height 2023-07-24 00:00:00 63.5 [in_i] [facility] Practice BMI (Body Mass Index) 2023-07-24 00:00:00 20.9 kg/m2 [facility] Practice Body Weight 2023-07-24 00:00:00 120 [lb_av] [facility] BP Systolic 2023-06-30 00:00:00 150 mm[Hg] [facility] BP Diastolic 2023-06-30 00:00:00 78 mm[Hg] [facility] Height 2023-06-30 00:00:00 64 [in_i] [facility] BP Diastolic 2022-10-24 00:00:00 58 mm[Hg] [facility] Height 2022-10-24 00:00:00 64 [in_i] [facility] BMI (Body Mass Index) 2022-10-24 00:00:00 21.2 kg/m2 [facility] BP Systolic 2022-10-24 00:00:00 138 mm[Hg] [facility] age [facility] Body Weight 2022-10-24 00:00:00 123.4 [lb_av] [facility] BP Diastolic 2022-05-10 00:00:00 64 mm[Hg] [facility] Height 2022-05-10 00:00:00 64 [in_i] [facility] BMI (Body Mass Index) 2022-05-10 00:00:00 20.6 kg/m2 [facility] BP Systolic 2022-05-10 00:00:00 122 mm[Hg] [facility] Body Weight 2022-05-10 00:00:00 119.8 [lb_av] [facility] BP Diastolic 2022-03-02 00:00:00 70 mm[Hg] [facility] Height 2022-03-02 00:00:00 63 [in_i] [facility] BMI (Body Mass Index) 2022-03-02 00:00:00 20.9 kg/m2 [facility] BP Systolic 2022-03-02 00:00:00 163 mm[Hg] [facility] Body Weight 2022-03-02 00:00:00 118 [lb_av] [facility] BP Diastolic 2022-02-23 00:00:00 77 mm[Hg] [facility] Height 2022-02-23 00:00:00 63 [in_i] [facility] BMI (Body Mass Index) 2022-02-23 00:00:00 20.9 kg/m2 [facility] Practice BP Systolic 2022-02-23 00:00:00 139 mm[Hg] Vill age [facility] Body Weight 2022-02-23 00:00:00 118 [lb_av] [facility] BP Diastolic 2022-01-13 00:00:00 84 mm[Hg] [facility] Height 2022-01-13 00:00:00 63 [in_i] [facility] BMI (Body Mass Index) 2022-01-13 00:00:00 20.5 kg/m2 [facility] BP Systolic 2022-01-13 00:00:00 150 mm[Hg] [facility] Body Weight 2022-01-13 00:00:00 116 [lb_av] [facility] BP Diastolic 2021-11-24 00:00:00 91 mm[Hg] [facility] Height 2021-11-24 00:00:00 63 [in_i] [facility] BMI (Body Mass Index) 2021-11-24 00:00:00 20.5 kg/m2 [facility] BP Systolic 2021-11-24 00:00:00 157 mm[Hg] [facility] Body Weight 2021-11-24 00:00:00 116 [lb_av] [facility] BP Diastolic 2021-11-10 00:00:00 90 mm[Hg] [facility] Height 2021-11-10 00:00:00 63 [in_i] [facility] Practice BMI (Body Mass Index) 2021-11-10 00:00:00 21.4 kg/m2 [facility] BP Systolic 2021-11-10 00:00:00 160 mm[Hg] [facility] Body Weight 2021-11-10 00:00:00 120.6 [lb_av] [facility] BP Diastolic 2021-09-14 00:00:00 84 mm[Hg] [facility] Height 2021-09-14 00:00:00 63 [in_i] [facility] BMI (Body Mass Index) 2021-09-14 00:00:00 21.3 kg/m2 [facility] BP Systolic 2021-09-14 00:00:00 168 mm[Hg] [facility] Body Weight 2021-09-14 00:00:00 120 [lb_av] [facility] Height 2021-07-14 00:00:00 63 [in_i] [facility] BMI (Body Mass Index) 2021-07-14 00:00:00 21.1 kg/m2 [facility] Body Weight 2021-07-14 00:00:00 119 [lb_av] [facility] Procedures Procedure Date / Time Performed Performing Clinician Source electrocardiogram 2022-10-24 00:00:00 [facility] ankle brachial index 2022-05-10 00:00:[address] [facility] MAMMO, screening, bilateral 2022-03-02 00:00:00 [facility] Cystoscopy 2021-12-24 00:00:00 [facility] In[facility] Procedure: Suburethral Sling 2021-12-24 00:00:00 [facility] DEXA 2021-11-10 00:00:[address] [facility] electrocardiogram 2021-11-10 00:00:00 [facility] Incontinence Procedure: Urethral Bulking Injection 2015-12-18 00:00:00 [facility] Tubal Ligation 1982-09-18 00:00:00 [facility] Hysterectomy with Oopherectomy (Ovaries Removed) [facility] Plan of Care Planned Activity Planned Date Details Comments Source Diagnostic Test Pending 2023-11-03 00:00:00 BMP, serum or plasma [code = BMP, serum or plasma] [facility] Diagnostic Test Pending 2021-11-24 00:00:00 urinalysis, complete [code = urinalysis, complete] [facility] Diagnostic Test Pending 2021-11-24 00:00:00 culture, urine [code = culture, urine] [facility] Medical Future Appointment 2024-07-24 15:00:00 Emeka Lagos [facility] ; [address] Appointment 2024-01-11 11:30:00 Emeka Lagos [facility] ; [address], [address] Instructions [facility] Encounters Start Date/Time End Date/Time Encounter Type Admission Type Attending [facility] Care Facility Care Department Encounter ID Source 2023-12-07 00:00:00 2023-12-07 00:00:00 Outpatient GC_[facility] _Cathey PRIV PRIV [id number] [facility] 2023-11-03 00:00:00 2023-11-03 00:00:00 Outpatient Fabiola LUKE VFP VF [id number] [facility] e 2023-11-03 00:00:00 2023-11-03 00:00:00 Dev Metcalf MD: [address] [facility] , [address], [place] [address] , Ph. VFP [place] - [facility] - [place] - SAM_BENJAMIN_Abdirahman au In Medicine [id number] [facility] e 2023-11-02 00:00:00 2023-11-02 00:00:00 Outpatient GC_SWHAWPRC _Cathey PRIV PRIV [id number] [facility] Medical 2023-11-01 00:00:00 2023-11-01 00:00:00 Outpatient Lisse_S_HOU _MD VFP VFP [id number] [facility] 2023-10-21 00:00:00 2023-10-21 00:00:00 Outpatient Lisse_S_HOU _MD VFP VFP [id number] [facility] 2023-08-30 00:00:00 2023-08-30 00:00:00 Outpatient Lisse_S_HOU _MD VFP VFP [id number] [facility] 2023-08-24 00:00:00 2023-08-24 00:00:00 Outpatient Lisse_S_HOU _MD VFP VFP [id number] [facility] 2023-08-24 00:00:00 2023-08-24 00:00:00 Amita Zamora MD: [address] [facility] , [address], [place] [id number] , Ph. VFP [place] [facility] - [place] - VM_HOU_Asso ciates In Medicine [id number] [facility] 2023-07-24 00:00:00 2023-07-24 00:00:00 Outpatient Lisse_S_HOU _MD VFP VFP [id number] [facility] 2023-07-24 00:00:00 2023-07-24 00:00:00 Dev Metcalf MD: [address] [facility] , [address], [place] [address] , Ph. VFP [place] - [facility] - [place] - VM_HOU_Asso ciates In Medicine [id number] [facility] 2023-07-22 00:00:00 2023-07-22 00:00:00 Outpatient Lisse_S_HOU _MD VFP VFP [id number] [facility] 2023-06-30 00:00:00 2023-06-30 00:00:00 Outpatient Lisse_S_HOU _MD VFP VFP [id number] [facility] 2023-06-30 00:00:00 2023-06-30 00:00:00 Outpatient Lisse_S_HOU _MD VFP VFP [id number] [facility] 2023-06-30 00:00:00 2023-06-30 00:00:00 Gina Morgan, TRAFFIC COURT MAGISTRATE: [address] [facility] , [address], [place] [address] , Ph. VFP [place] - [facility] - [place] - VM_HOU_Asso ciates In Medicine [id number] [facility] 2023-06-26 00:00:00 2023-06-26 00:00:00 Outpatient Lisse_S_HOU _MD VFP VFP [id number] [facility] 2022-10-24 00:00:00 2022-10-24 00:00:00 Dev Metcalf MD: [address] [facility] [address], [place] [address] , Ph. VFP [place] - [facility] - [place] - VM_HOU_Asso ciates In Medicine [id number] [facility] 2022-10-21 00:00:00 2022-10-21 00:00:00 Outpatient Lisse_S VFP VFP [id number] [facility] 2022-10-21 00:00:00 2022-10-21 00:00:00 Outpatient Lisse_S VFP VFP [id number] [facility] 2022-10-20 00:00:00 2022-10-20 00:00:00 Outpatient [facility] _[facility] PRIV [id number] [facility] Medical 2022-10-13 00:00:00 2022-10-13 00:00:00 Outpatient GC_[facility] _Cathey [facility] PRIV [id number] [facility] Medical 2022-10-13 00:00:00 2022-10-13 00:00:00 Ira Macedo, TRAFFIC COURT MAGISTRATE: [address], [address], [place] [address] , Ph. [phone] [facility] - GC_SWHAWPRC _Marie Office* [id number] [facility] 2022-06-03 00:00:00 2022-06-03 00:00:00 Outpatient Lisse_S VFP VFP [id number] [facility] e 2022-05-10 00:00:00 2022-05-10 00:00:00 Dev Metcalf MD: [address] [facility] , [address], [place] [address] , Ph. Lisse_S VFP [facility] - _HOU_Asso ciates In Medicine [id number] [facility] e 2022-04-20 00:00:00 2022-04-20 00:00:00 Outpatient Lisse_S VFP VFP [id number] [facility] e 2022-03-03 05:39:00 2022-03-03 05:39:00 Outpatient GC_[facility]AWPRC _Cathey PRIV PRIV [id number] [facility] 2022-03-02 02:09:00 2022-03-02 02:09:00 Outpatient GC_SWHATBIC _LRichter PRIV PRIV [id number] [facility] 2022-03-02 00:00:00 2022-03-02 00:00:00 Perla Sy MD: [address], [address], [place] [address] , Ph. [phone] [facility] - GC_SWEMERSONPRBraden _Marie Office* [id number] [facility] 2022-03-02 00:00:00 2022-03-02 00:00:00 Outpatient Perla Sy PRIV PRIV [id number] 2022-02-25 09:10:00 2022-02-25 09:10:00 Outpatient GC_[facility]AW[facility] _Cathey PRIV PRIV [id number] [facility] 2022-02-23 03:39:00 2022-02-23 03:39:00 Outpatient GC_[facility] _Cathey PRIV PRIV [id number] [facility] 2022-02-23 00:00:00 2022-02-23 00:00:00 Dev Metcalf MD: [address] [facility] , [address], [place] [address] , Ph. Lisse_S VFP [facility] - VM_BENJAMIN_Abdirahman [facility] [id number] [facility] e 2022-02-22 03:39:00 2022-02-22 03:39:00 Outpatient Lisse_S VFP VFP [id number] [facility] e 2022-01-18 04:06:00 2022-01-18 04:06:00 Outpatient GC_[facility] _Cathey [facility] PRIV [id number] [facility] 2022-01-13 12:29:00 2022-01-13 12:29:00 Outpatient GC_[facility] _Cathey [facility] PRIV [id number] [facility] 2022-01-13 00:00:00 2022-01-13 00:00:00 Katie Siddiqi, TRANSITION MANAGER: [address], [address], [place] [address] , Ph. [phone] [facility] - GC_SWHAWPRC _Marie Office* [id number] [facility] 2022-01-13 00:00:00 2022-01-13 00:00:00 Outpatient Katie Siddiqi [facility] [id number] 2022-01-11 10:14:00 2022-01-11 10:14:00 Outpatient GC_[facility] _Cathey [facility] PRIV [id number] [facility] 2021-12-23 03:42:00 2021-12-23 03:42:00 Outpatient GC_[facility]AW[facility]C _Cathey [facility] PRIV [id number] [facility] 2021-12-14 03:26:00 2021-12-14 03:26:00 Outpatient Lisse_S VFP VFP [id number] [facility] e 2021-12-14 01:52:00 2021-12-14 01:52:00 Outpatient GC_SWHAWPRC _Cathey PRIV PRIV [id number] [facility] 2021-12-13 12:32:00 2021-12-13 12:32:00 Outpatient GC_[facility]C _Cathey PRIV PRIV [id number] [facility] 2021-12-13 00:00:00 2021-12-13 00:00:00 Perla Sy MD: [address], [address], [place] [address] , Ph. [phone] [facility] - GC_[facility]AWPRC _[place] Office* [id number] [facility] 2021-12-13 00:00:00 2021-12-13 00:00:00 Outpatient Perla Sy [facility] PRIV [id number] 2021-12-10 03:02:00 2021-12-10 03:02:00 Outpatient GC_[facility]WHAWPRC _Cathey PRIV PRIV [id number] [facility] 2021-12-09 11:44:00 2021-12-09 11:44:00 Outpatient GC_[facility]C _Cathey PRIV PRIV [id number] [facility] 2021-12-08 05:05:00 2021-12-08 05:05:00 Outpatient GC_[facility]AWPRC _Cathey PRIV PRIV [id number] [facility] 2021-12-08 00:00:00 2021-12-08 00:00:00 Outpatient Perla Sy [facility] PRIV [id number] 2021-12-08 00:00:00 2021-12-08 00:00:00 Perla Sy MD: [address], [address], [place] [address] , Ph. [phone] [facility] - GC_SWHAWPRC _[place] Office* [id number] [facility] 2021-12-03 03:13:00 2021-12-03 03:13:00 Outpatient GC_[facility]C _Cathey PRIV PRIV [id number] [facility] 2021-11-30 03:04:00 2021-11-30 03:04:00 Outpatient GC_[facility]C _Cathey PRIV PRIV [id number] [facility] 2021-11-29 02:17:00 2021-11-29 02:17:00 Outpatient GC_[facility] _Cathey PRIV PRIV [id number] [facility] 2021-11-26 02:00:00 2021-11-26 02:00:00 Outpatient GC_[facility]AWPRC _Cathey PRIV PRIV [id number] [facility] 2021-11-25 11:37:00 2021-11-25 11:37:00 Outpatient GC_[facility]AW[facility] _Cathey PRIV PRIV [id number] [facility] 2021-11-24 04:56:00 2021-11-24 04:56:00 Outpatient GC_[facility]AWPRC _Cathey PRIV PRIV [id number] [facility] 2021-11-24 00:00:00 2021-11-24 00:00:00 Outpatient Perla Sy [facility] [id number] 2021-11-24 00:00:00 2021-11-24 00:00:00 Perla Sy MD: [address], [address], [place] [address] , Ph. [phone] [facility] - GC_[facility] _Marie Office* [id number] [facility] 2021-11-23 10:47:00 2021-11-23 10:47:00 Outpatient GC_[facility] _Cathey PRIV PRIV [id number] [facility] 2021-11-15 01:22:00 2021-11-15 01:22:00 Outpatient Lisse_S VFP VFP [id number] [facility] Family [facility] 2021-11-10 00:00:00 2021-11-10 00:00:00 Dev Metcalf MD: [address] [facility] , [address], [place] [address] , Ph. Lisse_S VFP [place] - [facility] - VM_HOU_Asso [facility] [id number] [facility] 2021-11-09 06:12:00 2021-11-09 06:12:00 Outpatient Lisse_S VFP VFP [id number] [facility] 2021-11-08 01:44:00 2021-11-08 01:44:00 Outpatient Lisse[facility]S VFP VFP [id number] [facility] 2021-09-16 02:29:00 2021-09-16 02:29:00 Outpatient Lisse_S VFP VFP [id number] [facility] 2021-09-14 00:00:00 2021-09-14 00:00:00 Dev Metcalf MD: [address] [facility] , [address] [place] [id number] , Ph. Lisse_S VFP [place] - [facility] - VM_HOU_Asso [facility] [id number] [facility] 2021-07-19 07:45:00 2021-07-19 07:45:00 Outpatient Lisse_S VFP VFP [id number] [facility] 2021-07-14 00:00:00 2021-07-14 00:00:00 Dev Metcalf MD: [address] [facility] , [address], [place] [address] , Ph. Lisse_S VFP [place] - [facility] - VM_HOU_Asso [facility] [id number] [facility] 2020-10-15 12:32:00 2020-10-15 12:32:00 Outpatient GC_SWHATBIC _[facility] [id number] [facility] 2020-10-15 12:32:00 2020-10-15 12:32:00 Outpatient GC_SWHATBIC _[facility] [id number] [facility] 2020-10-15 12:32:00 2020-10-15 12:32:00 Outpatient GC_SWHAWPRC _Kerrie [facility] [id number] [facility] Results Test Description Test Time Test Comments Results Result Co mments Source [facility] MedicalCB W Auto Differential panel - [id number] 00:00:00* Test Item Value Reference Range Interpretation Comme nts Leukocytes [#/volume] in Blood by Automated count (test code = 6690-2) 10.77 x10(3)/uL 4.00-10.10 H Erythrocytes [#/volume] in Blood by Automated count (test code = 789-8) 4.74 x10(6)/uL 3.58-5.19 Hemoglobin [Mass/volume] in Blood (test code = 718-7) 14.7 g/dL 11.0-15.5 Hematocrit [Volume Fraction] of Blood by Automated count (test code = 4544-3) 43.7 % 31.5-44.8 MCV [Entitic volume] by Automated count (test code = 787-2) 92.2 fL 78.0-98.0 MCH [Entitic mass] by Automated count (test code = 785-6) 31.0 pg 25.2-32.6 MCHC [Mass/volume] by Automated count (test code = 786-4) 33.6 g/dL 31.0-34.7 Erythrocyte distribution width [Ratio] by Automated count (test code = 788-0) 12.3 % 12.0-15.5 Polymorphonuclear cells/100 leukocytes in Blood by Manual count (test code = 05721-4) 65.6 % 37.1-78.1 Lymphocytes/100 leukocytes i n Blood by Automated count (test code = 736-9) 20.4 % 13.7-50.9 Mononuclear cells/100 leukocytes in Blood by Manual count (test code = 98239-1) 8.8 % 3.0-11.9 Eosinophils/100 leukocytes i n Blood by Automated count (test code = 713-8) 4.0 % 0.0-5.0 Basophils/100 leukocytes in Blood by Automated count (test code = 706-2) 0.6 % 0.0-1.0 Immature granulocytes/100 leukocytes in Blood (test code = 24543-2) 0.6 % 0.0-1.0 Platelets [#/volume] in Bloo d by Automated count (test code = 777-3) 374 x10(3)/uL 140-425 Platelet mean volume [Entiti c volume] in Blood by Automated count (test code = 26768-8) 9.6 fL 8.6-12.1 [facility] MedicalUrinalysis complete panel - [id number] 00:00:00* Test Item Value Reference Range Interpretation Comme nts Specific gravity of Urine (test code = 2965-2) 1.017 1.003-1.030 pH of Urine (test code = 2756-5) 7.0 5.0-8.0 Protein [Presence] in Urine by Test strip (test code = 95406-5) negative negative Glucose [Presence] in Urine by Test strip (test code = 25522-4) negative negative Ketones [Presence] in Urine by Test strip (test code = 2514-8) negative negative Urobilinogen [Units/volume] in Urine by Test strip (test code = 74805-0) 0.2 mg/dL 0.2-1.0 Bilirubin.total [Presence] i n Urine by Test strip (test code = 5770-3) negative negative Hemoglobin [Presence] in Uri ne by Test strip (test code = 5794-3) negative negative Nitrite [Presence] in Urine by Test strip (test code = 5802-4) negative negative Crystals [type] in Urine sediment by Light microscopy (test code = 5782-8) few none A Leukocytes [#/area] in Urine sediment by Microscopy high power field (test code = 5821-4) 0-4 0-4 Erythrocytes [#/area] in Uri ne sediment by Microscopy high power field (test code = 79381-4) none seen none seen RBC casts [Presence] in Urin e sediment by Light microscopy (test code = 15091-1) none seen 0-1 Hyaline casts [Presence] in Urine sediment by Light microscopy (test code = 42703-9) 0-4 0-4 Epithelial cells [Presence] in Urine sediment by Light microscopy (test code = 52546-8) few none-few Granular casts [Presence] in Urine sediment by Light microscopy (test code = 88433-1) none seen 0-1 Bacteria [Presence] in Urine sediment by Light microscopy (test code = 41064-0) few none-few Leukocyte esterase [Presence ] in Urine by Test strip (test code = 5799-2) negative negative Color of Urine (test code = 5778-6) yellow yellow, straw, [place] Character of Urine (test cod e = 86912-2) clear clear [facility] metabolic 2000 panel - Serum or [id number] 00:00:00* Test Item Value Reference Range Interpretation Comme nts Sodium [Moles/volume] in Serum or Plasma (test code = 2951-2) 140 mmol/L 135-147 Potassium [Moles/volume] in Serum or Plasma (test code = 2823-3) 4.5 mmol/L 3.5-5.5 Chloride [Moles/volume] in Serum or Plasma (test code = 2075-0) 103 mmol/L 96-108 Carbon dioxide, total [Moles/volume] in Serum or Plasma (test code = 8-9) 24 mmol/L 22-29 Urea nitrogen [Mass/volume] in Serum or Plasma (test code = 3094-0) 16 mg/dL 8-23 Creatinine [Mass/volume] in Serum or Plasma (test code = 2160-0) 0.65 mg/dL 0.49-1.02 Glomerular filtration rate/1.73 sq M.predicted [Volume Rate/Area] in Serum or Plasma by Creatinine-based formula (MDRD) (test code = 25812-0) 85 mL/min See_Comment [Automated [employer]] The system which generated this result transmitted reference range: >or=60. The reference range was not used to interpret this result as normal/abnormal. Glomerular filtration rate/1.73 sq M.predicted among blacks [Volume Rate/Area] in Serum, Plasma or Blood by Creatinine-based formula (MDRD) (test code = 02899-0) 99 mL/min See_Comment [Automated [employer]] The system which generated this result transmitted reference range: >or=60. The reference range was not used to interpret this result as normal/abnormal. Urea nitrogen/Creatinine [Mass Ratio] in Serum or Plasma (test code = 3097-3) 24.6 ratio 10.0-28.0 Calcium [Mass/volume] in Serum or Plasma (test code = 82083-7) 9.4 mg/dL 8.6-10.4 Glucose [Mass/volume] in Serum or Plasma (test code = 2345-7) 97 mg/dL 70-99 [facility] by [id number] 00:00:00* Test Item Value Reference Range Interpretation Comme nts Bacteria identified in Urine by Culture (test code = 630-4) no growth no growth [facility] identified in Urine by [id number] 00:00:00* Test Item Value Reference Range Interpretation Comme nts Bacteria identified in Urine by Culture (test code = 630-4) no growth no growth [facility] complete panel - [id number] 00:00:00* Test Item Value Reference Range Interpretation Comme nts Specific gravity of Urine (test code = 2965-2) 1.012 1.003-1.030 pH of Urine (test code = 2756-5) 7.0 5.0-8.0 Protein [Presence] in Urine by Test strip (test code = 10927-6) negative negative Glucose [Presence] in Urine by Test strip (test code = 98122-0) negative negative Ketones [Presence] in Urine by Test strip (test code = 2514-8) negative negative Urobilinogen [Units/volume] in Urine by Test strip (test code = 73199-1) 0.2 mg/dL 0.2-1.0 Bilirubin.total [Presence] i n Urine by Test strip (test code = 5770-3) negative negative Hemoglobin [Presence] in Uri ne by Test strip (test code = 5794-3) negative negative Nitrite [Presence] in Urine by Test strip (test code = 5802-4) negative negative Crystals [type] in Urine sediment by Light microscopy (test code = 5782-8) none none Leukocytes [#/area] in Urine sediment by Microscopy high power field (test code = 5821-4) 0-4 0-4 Erythrocytes [#/area] in Uri ne sediment by Microscopy high power field (test code = 97625-7) none seen none seen RBC casts [Presence] in Urin e sediment by Light microscopy (test code = 34015-9) none seen 0-1 Hyaline casts [Presence] in Urine sediment by Light microscopy (test code = 91857-4) 0-4 0-4 Epithelial cells [Presence] in Urine sediment by Light microscopy (test code = 41298-1) none none-few Granular casts [Presence] in Urine sediment by Light microscopy (test code = 86292-4) none seen 0-1 Bacteria [Presence] in Urine sediment by Light microscopy (test code = 78684-3) none none-few Leukocyte esterase [Presence ] in Urine by Test strip (test code = 5799-2) negative negative Color of Urine (test code = 5778-6) yellow yellow, straw, [place] Character of Urine (test cod e = 62575-9) clear clear [facility] complete panel - [id number] 00:00:00* Test Item Value Reference Range Interpretation Comme nts Specific gravity of Urine (test code = 2965-2) 1.012 1.003-1.030 pH of Urine (test code = 2756-5) 7.0 5.0-8.0 Protein [Presence] in Urine by Test strip (test code = 60243-0) negative negative Glucose [Presence] in Urine by Test strip (test code = 21351-5) negative negative Ketones [Presence] in Urine by Test strip (test code = 2514-8) negative negative Urobilinogen [Units/volume] in Urine by Test strip (test code = 01109-7) 0.2 mg/dL 0.2-1.0 Bilirubin.total [Presence] i n Urine by Test strip (test code = 5770-3) negative negative Hemoglobin [Presence] in Uri ne by Test strip (test code = 5794-3) negative negative Nitrite [Presence] in Urine by Test strip (test code = 5802-4) negative negative Crystals [type] in Urine sediment by Light microscopy (test code = 5782-8) none none Leukocytes [#/area] in Urine sediment by Microscopy high power field (test code = 5821-4) 0-4 0-4 Erythrocytes [#/area] in Uri ne sediment by Microscopy high power field (test code = 03812-3) none seen none seen RBC casts [Presence] in Urin e sediment by Light microscopy (test code = 03897-9) none seen 0-1 Hyaline casts [Presence] in Urine sediment by Light microscopy (test code = 87569-8) 0-4 0-4 Epithelial cells [Presence] in Urine sediment by Light microscopy (test code = 56585-3) none none-few Granular casts [Presence] in Urine sediment by Light microscopy (test code = 52989-9) none seen 0-1 Bacteria [Presence] in Urine sediment by Light microscopy (test code = 39754-7) none none-few Leukocyte esterase [Presence ] in Urine by Test strip (test code = 5799-2) negative negative Color of Urine (test code = 5778-6) yellow yellow, straw, [place] Character of Urine (test cod e = 14360-4) clear clear [facility]
[2023-12-10 15:52] LABS: PT Prothrombin Time 11.2 SECONDS (9.5-12.5); Protime INR 1.02
[2023-12-10 16:00] LABS: Absolute Lymphocytes (CBC) 0.6 K/uL (0.7-4.9); Absolute Monocytes 0.6 K/uL (0.1-1.3); Absolute Neutrophil 11.4 K/uL (1.8-8.0); Albumin 3.6 g/dL (3.4-5.0); Albumin/Globulin Ratio 1.1 (1.1-1.8); Anion Gap 6.6 mEq/L (5.0-15.0); Basophils % 0.3 % (0-1.3); Bilirubin Direct 0.2 mg/dL (0-0.2); Bilirubin Indirect, Calculated 0.2 mg/dL (0.2-0.8); Bilirubin Total 0.4 mg/dL (0.2-1.0); Eosinophils % 0.4 % (0-4.4); Globulin 3.3 g/dL (2.3-3.5); Hematocrit 44.1 % (36.0-45.0); Hemoglobin 15.2 g/dL (12.0-15.0); MCH 31.7 pg (27.0-35.0); MCHC 34.4 g/dL (32.0-36.0); MPV 7.8 fL (7.6-11.3); Magnesium 1.9 mg/dL (1.6-2.4); Monocytes % 4.5 % (3.3-12.3); Neutrophils % 89.8 % (41.7-73.7); Nucleated Red Blood Cells % 0.1 % (0-0); Platelets 295 thou/uL (152-406); Potassium 3.6 mEq/L (3.5-5.1); Protein, Total 6.9 g/dL (6.4-8.2); RBC Red Blood Cell Count 4.79 M/uL (3.86-4.86); Red Cell Distribution Width 13.5 % (12.1-15.2); Troponin High Sensitivity 6.9 pg/mL (<58.9)
--- NOTE | 2023-12-10 16:04 | RAD REPORT ---
EXAM DESCRIPTION: CT - Abdomen Pelvis Wo Contrast - 12/10/2023 3:39 pm CLINICAL HISTORY: ABD PAIN COMPARISON: No comparisons TECHNIQUE: Thin cut axial CT imaging of the abdomen and pelvis was performed without IV contrast. Mu ltiplanar reformats were generated and reviewed. All CT scans are performed using dose optimization technique as appropriate and may include automated exposure control or mA/KV adjustment according to patient size. FINDINGS: No suspicious findings in the lung bases. The liver shows well-circumscribed fluid density lesions largest in the left lobe measuring 2 cm. Adr enal glands, spleen, and pancreas show no suspicious findings. Gallbladder and biliary tree are also without suspicious finding. Symmetric renal contour, without suspicious parenchymal findings within limits of noncontrast techniq ue. No evidence of radiopaque calculi or hydroureteronephrosis. No dilated bowel loops. Wall thickening and adjacent fat stranding with fluid opacification of the as cending colon. Some fluid opacification of nondistended small bowel in the right flank and pelvis, wi th minimal wall prominence as well. Sigmoid diverticulosis. . No free air, free fluid or inflammatory stranding. No hernia, mass or bulky lymphadenopathy. The urinary bladder is without significant find ing. Superior endplate compression deformities at L1 and L4, indeterminate, but favored to be chronic. IMPRESSION: Segmental wall thickening and inflammatory changes with fluid opacification of the ascen ding colon, and to lesser extent along segments of small bowel in the right flank and pelvis, suggest ing infectious or inflammatory enterocolitis. Sigmoid diverticulosis without evidence of focal acute diverticulitis. Benign-appearing liver cysts. Indeterminate, although likely chronic, superior endplate compression deformities of L1 and L4.
--- NOTE | 2023-12-10 16:37 | RAD REPORT ---
[facility] CLINICAL HISTORY: COUGH COMPARISON: Chest Single View dated 06/28/2023; Chest Single View dated 02/16/2022; Chest Pa And Lat ( 2 Views) dated 07/23/2017; Chest Pa And Lat (2 Views) dated 02/13/2016 TECHNIQUE: Portable AP view of the chest. FINDINGS: The lungs are clear. No pneumothorax or effusion. The cardiomediastinal contours are unre markable. IMPRESSION: No acute cardiopulmonary process. No significant interval change.
[2023-12-10 17:01] LABS: Specific Gravity < 1.005 (1.005-1.030); Sqamous Epithelial <5 /HPF (None Seen); Urine Bacteria None Seen /HPF (<20); Urine Bilirubin NEGATIVE (Negative); Urine Blood Negative (Negative); Urine Clarity Turbid (Clear); Urine Color Colorless (Yellow); Urine Culture Reflex Order NOT NEEDED; Urine Glucose NEGATIVE (Negative); Urine Ketones NEGATIVE (Negative); Urine Microscopic Reflex YN ORDER UMIC; Urine Nitrite NEGATIVE (Negative); Urine Protein NEGATIVE (Negative); Urine RBC <5 /HPF (None Seen); Urine Urobilinogen Normal (Normal); Urine WBC <5 /HPF (<5); Urine pH 6.5 (5.0-7.0)
--- NOTE | 2023-12-10 17:43 | EDPHYS ---
Physician Documentation [facility] Name: Maria Victoria Kirk Age: 78 yrs Sex: Female : 1945 Arrival Date: 12/10/2023 Time: 14:51 Bed 7 Private MD: SARAH Physician Bob Woodard HPI: 12/09 17:13 This 78 yrs old Female presents to ER via Ambulatory with complaints of grecia Nausea/Vomiting/Diarrhea. 17:13 The patient presents to the emergency department with nausea, vomiting, diarrhea, that grecia is continuous, abdominal pain, of the right upper quadrant and right lower quadrant. Onset: The symptoms/episode began/occurred 1 day(s) ago. Possible causes: unknown. The symptoms are aggravated by food , The symptoms are alleviated by nothing. remaining still. Associated signs and symptoms: Pertinent positives: abdominal pain, diarrhea, nausea, vomiting. Severity of symptoms: At their worst the symptoms were mild in the emergency department the symptoms are unchanged. The patient has not experienced similar symptoms in the past. Historical: - Allergies: 15:27 Aspirin; tl4 15:27 Codeine; tl4 - PMHx: 15:27 GERD; High Cholesterol; Hypertension; Hypothyroidism; tl4 - PSHx: 15:27 Appendectomy; hysterectomy; urethral sling; tl4 - Immunization history:: Adult Immunizations unknown. - Social history:: Smoking status: Patient denies any tobacco usage or history of. ROS: 17:16 Constitutional: Negative for fever, chills, and weight loss, Eyes: Negative for injury, grecia pain, redness, and discharge, ENT: Negative for injury, pain, and discharge, Neck: Negative for injury, pain, and swelling, Cardiovascular: Negative for chest pain, palpitations, and edema, Respiratory: Negative for shortness of breath, cough, wheezing, and pleuritic chest pain, Back: Negative for injury and pain, : Negative for injury, bleeding, discharge, and swelling, MS/Extremity: Negative for injury and deformity, Skin: Negative for injury, rash, and discoloration, Neuro: Negative for headache, weakness, numbness, tingling, and seizure, Psych: Negative for depression, anxiety, suicide ideation, homicidal ideation, and hallucinations, Allergy/Immunology: Negative for hives, rash, and allergies, Endocrine: Negative for neck swelling, polydipsia, polyuria, polyphagia, and marked weight changes, Hematologic/Lymphatic: Negative for swollen nodes, abnormal bleeding, and unusual bruising, 17:16 Abdomen/GI: Positive for abdominal pain, nausea and vomiting, diarrhea, abdominal cramps, Exam: 17:16 Constitutional: This is a well developed, well nourished patient who is awake, alert, grecia and in no acute distress. Head/Face: Normocephalic, atraumatic. Eyes: Pupils equal round and reactive to light, extra-ocular motions intact. Lids and lashes normal. Conjunctiva and sclera are non-icteric and not injected. Cornea within normal limits. Periorbital areas with no swelling, redness, or edema. ENT: Nares patent. No nasal discharge, no septal abnormalities noted. Tympanic membranes are normal and external auditory canals are clear. Oropharynx with no redness, swelling, or masses, exudates, or evidence of obstruction, uvula midline. Mucous membranes moist. Neck: Trachea midline, no thyromegaly or masses palpated, and no cervical lymphadenopathy. Supple, full range of motion without nuchal rigidity, or vertebral point tenderness. No Meningismus. Chest/axilla: Normal chest wall appearance and motion. Nontender with no deformity. No lesions are appreciated. Cardiovascular: Regular rate and rhythm with a normal S1 and S2. No gallops, murmurs, or rubs. Normal PMI, no JVD. No pulse deficits. Respiratory: Lungs have equal breath sounds bilaterally, clear to auscultation and percussion. No rales, rhonchi or wheezes noted. No increased work of breathing, no retractions or nasal flaring. Abdomen/GI: Soft, non-tender, with normal bowel sounds. No distension or tympany. No guarding or rebound. No evidence of tenderness throughout. Back: No spinal tenderness. No costovertebral tenderness. Full range of motion. Skin: Warm, dry with normal turgor. Normal color with no rashes, no lesions, and no evidence of cellulitis. MS/ Extremity: Pulses equal, no cyanosis. Neurovascular intact. Full, normal range of motion. Neuro: Awake and alert, GCS 15, oriented to person, place, time, and situation. Cranial nerves II-XII grossly intact. Motor strength 5/5 in all extremities. Sensory grossly intact. Cerebellar exam normal. Normal gait. Psych: Awake, alert, with orientation to person, place and time. Behavior, mood, and affect are within normal limits. 17:16 ECG was reviewed by the Attending Physician. Vital Signs: 15:25 BP 179 / 75; Pulse 89; Resp 16; Temp 97.6(O); Pulse Ox 99% on R/A; Weight 53.98 kg; tl4 Height 5 ft. 3 in. ; Pain 8/10; 16:18 BP 166 / 65; Pulse 88; Resp 16; Pulse Ox 100% on R/A; tl4 18:02 BP 166 / 64; Pulse 88; Resp 18; Pulse Ox 97% on R/A; jp5 19:00 BP 159 / 64; Pulse 81; Resp 16; Pulse Ox 99% on R/A; jb4 15:25 Body Mass Index 21.08 (53.98 kg, 160.02 cm) tl4 15:25 Pain Scale: Adult tl4 MDM: 15:18 Patient medically screened. grecia 17:17 Differential diagnosis: Nonspecific abd pain, gastritis, cholecystitis, pancreatitis, grecia appendicitis, diverticulitis, viral gastroenteritis, gastroenteritis, coronary artery disease, cholecystitis, Cholelithiasis, diverticulitis. Data reviewed: vital signs, nurses notes, lab test result(s), EKG, radiologic studies, CT scan, plain films. Consideration of Admission/Observation Escalation of care including admission/observation considered. I considered the following discharge prescriptions or medication management in the emergency department Medications were administered in the Emergency Department. See MAR. Independent interpretation of the following test(s) in the Emergency Department EKG: See my EKG interpretation above. Test considered but Not performed: Ultrasound no abd usg. Historians other than the Patient: Spouse/Significant Other: well informed. Care significantly affected by the following chronic conditions: Diabetes, Hypertension, gerd, hypothyroid. Counseling: I had a detailed discussion with the patient and/or guardian regarding the historical points, exam findings, and any diagnostic results supporting the discharge/admit diagnosis, lab results, radiology results, the need for outpatient follow up, for definitive care, a family practitioner, a manager clinic. 12/09 15:21 Order name: Basic Metabolic Panel; Complete Time: 17:04 grecia 12/09 15:21 Order name: CBC with Diff grecia 12/09 15:21 Order name: LFT's; Complete Time: 17:04 12/09 15:21 Order name: Magnesium; Complete Time: 17:04 12/09 15:21 Order name: NT PRO-BNP; Complete Time: 17:04 12/09 15:21 Order name: PT-INR; Complete Time: 17:12/09 15:21 Order name: Troponin HS; Complete Time: 17:04 12/09 15:21 Order name: Urinalysis w/ reflexes; Complete Time: 17:12/09 15:21 Order name: Lipase; Complete Time: 17:12/09 15:21 Order name: XRAY Chest (1 view); Complete Time: 17:12/09 15:21 Order name: CT Abd/Pelvis - Without Contrast; Complete Time: 17:12/09 15:21 Order name: EKG; Complete Time: 15:21 12/09 15:21 Order name: Cardiac monitoring; Complete Time: 16:10 12/09 15:21 Order name: EKG - Nurse/Tech; Complete Time: 16:10 12/09 15:21 Order name: IV Saline Lock; Complete Time: 15:33 12/09 15:21 Order name: Labs collected and sent; Complete Time: 15:33 12/09 15:21 Order name: O2 Per Protocol; Complete Time: 15:12/09 15:21 Order name: O2 Sat Monitoring; Complete Time: 15:12/09 17:12 Order name: PO challenge; Complete Time: 17:45 grecia EC:16 Rate is 84 beats/min. Rhythm is regular. QRS Dewey is Normal. CO interval is normal. QRS grecia interval is normal. QT interval is normal. No Q waves. T waves are Normal. No ST changes noted. Clinical impression: NSR w/ Non-specific ST/T Changes and No evidence of ischemia. Interpreted by me. Reviewed by me. Administered Medications: 15:47 Drug: NS 0.9% IV 1000 ml IV at 1 bolus Per protocol; 1000 mL bolus Route: IV; Rate: 1 iw bolus; Site: left antecubital; 15:47 Drug: Ondansetron IVP 4 mg IVP once; over 2 minutes Route: IVP; Site: left antecubital; iw 17:00 Follow up: Response: No adverse reaction iw 17:31 Drug: NS 0.9% IV 1000 ml IV at 1 bolus Per protocol; 1000 mL bolus Route: IV; Rate: 1 iw bolus; Site: left antecubital; 17:31 Drug: Ciprofloxacin IVPB 400 mg 200 ml IVPB once over 60 mins Volume: 200 ml; Route: iw IVPB; Infused Over: 60 mins; Site: left antecubital; 17:31 Drug: metroNIDAZOLE IVPB 500 mg 100 ml IVPB at 200 ml/hr once over 30 mins Volume: 100 iw ml; Route: IVPB; Rate: 200 ml/hr; Infused Over: 30 mins; Site: left antecubital; 18:50 Drug: Ondansetron IVP 4 mg IVP once; over 2 minutes Route: IVP; Site: left antecubital; iw Disposition Summary: 12/10/23 17:42 Discharge Ordered Notes: Location: Home grecia Problem: new grecia Symptoms: have improved grecia Condition: Stable grecia Diagnosis - Toxic gastroenteritis and colitis grecia - Elevated white blood cell count grecia - Weakness grecia - Abdominal tenderness grecai Followup: grecia - With: Private Physician - When: 2 - 3 days - Reason: Recheck today's complaints, Continuance of care, Re-evaluation by your physician Followup: grecia - With: Kory Gates MD - When: 2 - 3 days - Reason: Recheck today's complaints, Re-evaluation by your physician Discharge Instructions: - Discharge Summary Sheet grecia - Abdominal Pain, Adult grecia - Diarrhea, Adult grecia - Nausea and Vomiting, Adult grecia - Weakness grecia - Nausea and Vomiting, Adult, Gacv-xw-Cjma grecia - Abdominal Pain, Adult, [id number]-lk-Vbqn grecia - Diarrhea, Adult, Emzx-xw-Zsxs grecia - Weakness, Qhnz-ld-Mhlm grecia - Colitis [facility] Forms: - Medication Reconciliation Form [facility] - Thank You Letter [facility] - Antibiotic Education grecia - Prescription Opioid Use grecia - Patient Portal Instructions [facility] - Leadership Thank You Letter [facility] Prescriptions: - ondansetron 4 mg Oral Tablet,disintegrating - take 1 tablet ORAL route every 6-8 hours for 5 days; 20 tablet; Refills: 0, grecia Product Selection Permitted - promethazine 25 mg Rectal suppository - insert 1 suppository RECTAL route every 8 hours may repeat once in 8 hours, prn grecia intractable nausea and vomiting; 15 suppository; Refills: 0, Product Selection Permitted - Cipro 250 mg Oral tablet - take 1 tablet ORAL route every 12 hours; 14 tablet; Refills: 0, Product grecia Selection Permitted - Flagyl 500 mg Oral Tablet - take 1 tablet ORAL route every 12 hours for 7 days; 14 tablet; Refills: 0, grecia Product Selection Permitted - dicyclomine 20 mg Oral tablet - take 1 tablet ORAL route 4 times per day; 28 tablet; Refills: 0, Product grecia Selection Permitted Signatures: Dispatcher [employer] Bob Rudd MD MD cha Williams, Irene, RN RN iw Mina Laurent RN RN tl4
--- NOTE | 2023-12-10 17:43 | ER ---
Nurse's Notes [facility] Name: Maria Victoria Kirk Age: 78 yrs Sex: Female : 1945 Arrival Date: 12/10/2023 Time: 14:51 Bed 7 Private MD: Diagnosis: Toxic gastroenteritis and colitis;Elevated white blood cell count;Weakness;Abdominal tenderness Presentation: 12/09 15:25 Chief complaint: Patient states: Pt c/o low abdominal pain and diarrhea that woke up at tl4 0100. Pt also c/o nausea, vomiting. Coronavirus screen: At this time, the client does not indicate any symptoms associated with coronavirus-19. Ebola Screen: No symptoms or risks identified at this time. Initial Sepsis Screen: Does the patient meet any 2 criteria? No. Patient's initial sepsis screen is negative. Does the patient have a suspected source of infection? No. Patient's initial sepsis screen is negative. Risk Assessment: Do you want to hurt yourself or someone else? Patient reports no desire to harm self or others. Onset of symptoms was December 10, 2023 at 01:00. 15:25 Method Of Arrival: Ambulatory tl4 15:25 Acuity: RADHA 3 tl4 Triage Assessment: 15:27 General: Appears uncomfortable, Behavior is calm, cooperative. Pain: Complains of pain tl4 in abdomen. EENT: No deficits noted. No signs and/or symptoms were reported regarding the EENT system. Neuro: Level of Consciousness is awake, alert, obeys commands, Oriented to person, place, time, situation, Gait is steady, Speech is normal, Facial symmetry appears normal. Cardiovascular: Capillary refill < 3 seconds Patient's skin is warm and dry. Respiratory: Airway is patent Respiratory effort is even, unlabored, Respiratory pattern is regular, symmetrical. GI: Reports lower abdominal pain, diarrhea, nausea, vomiting. : No deficits noted. No signs and/or symptoms were reported regarding the genitourinary system. Derm: No deficits noted. No signs and/or symptoms reported regarding the dermatologic system. Musculoskeletal: No deficits noted. No signs and/or symptoms reported regarding the musculoskeletal system. Historical: - Allergies: 15:27 Aspirin; tl4 15:27 Codeine; tl4 - PMHx: 15:27 GERD; High Cholesterol; Hypertension; Hypothyroidism; tl4 - PSHx: 15:27 Appendectomy; hysterectomy; urethral sling; tl4 - Immunization history:: Adult Immunizations unknown. - Social history:: Smoking status: Patient denies any tobacco usage or history of. Screenin:34 [facility] ED Fall Risk Assessment (Adult) History of falling in the last 3 months, iw including since admission No falls in past 3 months (0 pts) Confusion or Disorientation No (0 pts) Intoxicated or Sedated No (0 pts) Impaired Gait No (0 pts) Mobility Assist Device Used No (0 pt) Altered Elimination No (0 pt) Score/Fall Risk Level 0 - 2 = Low Risk. Abuse screen: Denies threats or abuse. Denies injuries from another. Nutritional screening: No deficits noted. Tuberculosis screening: No symptoms or risk factors identified. Assessment: 15:33 General: Appears in no apparent distress. Behavior is calm, cooperative. Pain: iw Complains of pain in abdomen Neuro: Level of Consciousness is awake, alert, obeys commands, Oriented to person, place, time, situation, Moves all extremities. Full function. Cardiovascular: Patient's skin is warm and dry. Respiratory: Respiratory effort is even, unlabored, Respiratory pattern is regular, symmetrical. GI: Abdomen is flat, non-distended, Reports lower abdominal pain, cramping, diarrhea, nausea, vomiting. Derm: Skin is intact, is healthy with good turgor. Musculoskeletal: Range of motion: intact in all extremities. 16:18 Reassessment: Patient and/or family updated on plan of care and expected duration. Pain tl4 level reassessed. Patient is alert, oriented x 3, equal unlabored respirations, skin warm/dry/pink. Patient states feeling better. 16:44 Reassessment: Patient appears in no apparent distress at this time. Patient and/or iw family updated on plan of care and expected duration. Pain level reassessed. pt up to bathroom with steady gait. 19:31 Reassessment: Patient appears in no apparent distress at this time. Patient and/or jb4 family updated on plan of care and expected duration. Pain level reassessed. Patient is alert, oriented x 3, equal unlabored respirations, skin warm/dry/pink. Vital Signs: 15:25 BP 179 / 75; Pulse 89; Resp 16; Temp 97.6(O); Pulse Ox 99% on R/A; Weight 53.98 kg; tl4 Height 5 ft. 3 in. ; Pain 8/10; 16:18 BP 166 / 65; Pulse 88; Resp 16; Pulse Ox 100% on R/A; tl4 18:02 BP 166 / 64; Pulse 88; Resp 18; Pulse Ox 97% on R/A; jp5 19:00 BP 159 / 64; Pulse 81; Resp 16; Pulse Ox 99% on R/A; jb4 15:25 Body Mass Index 21.08 (53.98 kg, 160.02 cm) tl4 15:25 Pain Scale: Adult tl4 ED Course: 14:55 Patient arrived in ED. ra3 15:18 Bob Woodard MD is Attending Physician. grecia 15:27 Triage completed. tl4 15:29 Arm band placed on. tl4 15:33 Bri Gongora, RN is Primary Nurse. iw 15:33 Initial lab(s) drawn, by me, sent to lab. Inserted saline lock: 20 gauge in left iw antecubital area, using aseptic technique. Blood collected. 15:35 Patient has correct armband on for positive identification. Provided Education on: need iw for CT . property assessment monitor on. Pulse ox on. 15:[address] hb 15:41 CT Abd/Pelvis - Without Contrast In Process Unspecified. EDMS 16:29 XRAY Chest (1 view) In Process Unspecified. EDMS 16:53 Urine collected: clean catch specimen, clear. jg11 17:41 Kory Gates MD is Referral Physician. grecia 19:00 No provider procedures requiring assistance completed. IV discontinued, intact, jb4 bleeding controlled, No redness/swelling at site. Pressure dressing applied. Administered Medications: 15:47 Drug: NS 0.9% IV 1000 ml IV at 1 bolus Per protocol; 1000 mL bolus Route: IV; Rate: 1 iw bolus; Site: left antecubital; 15:47 Drug: Ondansetron IVP 4 mg IVP once; over 2 minutes Route: IVP; Site: left antecubital; iw 17:00 Follow up: Response: No adverse reaction iw 17:31 Drug: NS 0.9% IV 1000 ml IV at 1 bolus Per protocol; 1000 mL bolus Route: IV; Rate: 1 iw bolus; Site: left antecubital; 17:31 Drug: Ciprofloxacin IVPB 400 mg 200 ml IVPB once over 60 mins Volume: 200 ml; Route: iw IVPB; Infused Over: 60 mins; Site: left antecubital; 17:31 Drug: metroNIDAZOLE IVPB 500 mg 100 ml IVPB at 200 ml/hr once over 30 mins Volume: 100 iw ml; Route: IVPB; Rate: 200 ml/hr; Infused Over: 30 mins; Site: left antecubital; 18:50 Drug: Ondansetron IVP 4 mg IVP once; over 2 minutes Route: IVP; Site: left antecubital; iw Medication: 15:34 VIS not applicable for this client. iw Outcome: 17:42 Discharge ordered by . grecia 19:32 Discharged to home ambulatory, with family, tom 19:32 Condition: stable 19:32 Discharge instructions given to patient, Instructed on discharge instructions, follow up and referral plans. medication usage, Demonstrated understanding of instructions, follow-up care, medications, Prescriptions given X 5 19:32 Patient left the ED. jb4 Signatures: Dispatcher [employer] EDMS Bob Woodard MD MD cha Williams, Irene, Slaoni Huerta RN, RN RN Jordi Siu RN RN jb4 Mina Laurent RN RN tl4 Adonay Young jg11 Jenn Wright ra3 Viv Zurita RN RN jp5
[2023-12-10 20:33] VITALS: BP 159/64; TEMP 97.6; O2SAT 99
[2023-12-10 20:33] LABS: Blood Morphology Comment NOT SEEN (NOT SEEN); Platelet Estimate ADEQ; White Blood Cell Scan OK (OK)
--- NOTE | 2023-12-11 14:16 | EKG ---
Test Date: 2023-12-10 Test Time: 15:57:36 Handle Assembler: DARLING MEASUREMENT RESULTS: Intervals: Rate: 84 ND: 168 QRSD: 84 QT: 378 QTc: 446 [place]: P: 78 ND: 168 QRS: 69 T: 78 INTERPRETIVE STATEMENTS: Normal sinus rhythm Right atrial enlargement Septal infarct, age undetermined Abnormal ECG Compared to ECG 06/28/2023 14:16:44 No significant changes Electronically Signed On 12-11-23 14:13:42 CDT by Savage Barnhart
== END ==
LOC: ER 14:51
DX: K52.1 Toxic gastroenteritis and colitis (principal); D72.829 Elevated white blood cell count, unspecified; R53.1 Weakness; R10.819 Abdominal tenderness, unspecified site; Z88.5 Allergy status to narcotic agent; Z88.6 Allergy status to analgesic agent
CPT/HCPCS: 93005; 85025; 81001; 80048; 36415; 83735; 85610; 80076; 84484; 83690; 83880; 74176; 71045; 96375; 96374; 99285; J2405 ×2; J0744; J7030 ×2

== ENCOUNTER 2024-11-15 22:19 | Emergency (ER) | payer OTHER, BC ==
[2024-11-16 00:20] LABS: Absolute Basophils 0.1 K/uL (0-0.5); Absolute Lymphocytes (CBC) 0.7 K/uL (0.7-4.9); Absolute Monocytes 0.8 K/uL (0.1-1.3); Absolute Neutrophil 9.6 K/uL (1.8-8.0); Basophils % 0.7 % (0-1.3); Eosinophils % 0.3 % (0-4.4); Hematocrit 42.3 % (36.0-45.0); Hemoglobin 14.7 g/dL (12.0-15.0); Lymphocytes % 6.3 % (15.3-44.8); MCHC 34.6 g/dL (32.0-36.0); MCV 89.6 fL (80-100); MPV 7.9 fL (7.6-11.3); Monocytes % 6.8 % (3.3-12.3); Neutrophils % 85.9 % (41.7-73.7); Platelets 275 thou/uL (152-406); RBC Red Blood Cell Count 4.73 M/uL (3.86-4.86); Red Cell Distribution Width 13.2 % (12.1-15.2)
[2024-11-16] MEDS ORDERED: BENZONATATE 100 MG CAP PO ONE (00:25)
[2024-11-16] MEDS ORDERED: Levofloxacin500mg IV 500 MG/100 ML BAG IV ONE (00:26)
[2024-11-16] MEDS ORDERED: NA CHLORIDE 0.9% 500 ML ONE (00:26)
--- NOTE | 2024-11-16 00:30 | RAD REPORT ---
CLINICAL HISTORY: Cough. COMPARISON: None. TECHNIQUE: XR CHEST 1 VIEW 11/15/2024 11:03 PM HEAD BANQUET WAITER/WAITRESS FINDINGS: Cardiac silhouette is normal in size. Lungs are clear without consolidation, atelectasis, mass or nicole ma. There is no pleural effusion. There is no pneumothorax. There are no acute osseous findings. IMPRESSION: Clear lungs. Electronically signed by: Michele Felton MD 11/16/2024 12:25 AM HEAD BANQUET WAITER/WAITRESS Transcribed Date/Time: 11/16/2024 12:30 AM
[2024-11-16 00:40] LABS: Albumin 3.9 g/dL (3.4-5.0); Albumin/Globulin Ratio 1.1 (1.1-1.8); Anion Gap 8.6 mEq/L (5.0-15.0); Bilirubin Total 0.5 mg/dL (0.2-1.0); Globulin 3.6 g/dL (2.3-3.5); Potassium 3.6 mEq/L (3.5-5.1); Protein, Total 7.5 g/dL (6.4-8.2)
[2024-11-16 00:48] LABS: Specific Gravity 1.006 (1.005-1.030); Sqamous Epithelial None Seen /HPF (None Seen); Urine Bacteria None Seen /HPF (<20); Urine Bilirubin NEGATIVE (Negative); Urine Blood Trace (Negative); Urine Clarity Clear (Clear); Urine Color Colorless (Yellow); Urine Culture Reflex Order NOT NEEDED; Urine Glucose NEGATIVE (Negative); Urine Ketones TRACE (Negative); Urine Microscopic Reflex YN ORDER UMIC; Urine Nitrite NEGATIVE (Negative); Urine Protein NEGATIVE (Negative); Urine RBC <5 /HPF (None Seen); Urine Urobilinogen Normal (Normal); Urine WBC <5 /HPF (<5); Urine pH 6.5 (5.0-7.0)
[2024-11-16] MEDS ORDERED: HYDROCODONE/CHLORPHEN 5 ML/OSYR ONE (02:02)
--- NOTE | 2024-11-16 03:12 | EDPHYS ---
Physician Documentation [facility] Name: Maria Victoria Kirk Age: 79 yrs Sex: Female : 1945 Arrival Date: 11/15/2024 Time: 22:19 Bed 5 Private MD: ED Physician Audi Mir HPI: 11/15 23:05 This 79 yrs old Female presents to ER via Ambulatory with complaints of Flu Symptoms. cp 23:05 The patient or guardian reports cough, productive, sinus congestion. cp 23:05 Onset: The symptoms/episode began/occurred 2 week(s) ago. Associated signs and cp symptoms: Pertinent positives: elevated blood pressure and heart rate. Patient reports being seen at [facility] earlier today and being diagnosed with bilateral lung pneumonia. Covid and flu test were negative. Patient was prescribed Doxycycline antibiotic, cough syrup and an inhaler. 11/16 01:01 Patient reports having bladder suspension surgery 2 months ago. cp Historical: - Allergies: 11/15 22:50 Aspirin; ha1 22:50 Codeine; ha1 - PMHx: 22:50 GERD; High Cholesterol; Hypertension; Hypothyroidism; ha1 - PSHx: 22:50 Appendectomy; hysterectomy; urethral sling; ha1 - Immunization history:: Adult Immunizations up to date. - Infectious Disease History:: Denies. - Social history:: Smoking status: Patient denies any tobacco usage or history of. ROS: 23:10 Constitutional: Negative for fever, poor PO intake, cp 23:10 Eyes: Negative for injury, pain, redness, and discharge, cp 23:10 Cardiovascular: Negative for chest pain, edema, palpitations, 23:10 Respiratory: Positive for cough, shortness of breath, 23:10 Abdomen/GI: Negative for abdominal pain, vomiting, diarrhea, constipation, 23:10 Neuro: Negative for altered mental status, dizziness, headache, syncope, near syncope, weakness, 23:10 All other systems are negative, Exam: 23:15 Constitutional: The patient appears in no acute distress, alert, awake, cp non-diaphoretic, non-toxic, well developed, well nourished, 23:15 Head/Face: Normocephalic, atraumatic. cp 23:15 Eyes: Periorbital structures: appear normal, Conjunctiva: normal, no exudate, no injection, Sclera: no appreciated abnormality, Lids and lashes: appear normal, bilaterally, 23:15 ENT: External ear(s): are unremarkable, Nose: is normal, Mouth: Lips: moist, Oral mucosa: moist, Posterior pharynx: Airway: no evidence of obstruction, patent, 23:15 Chest/axilla: Inspection: normal, 23:15 Cardiovascular: Rate: tachycardic, Rhythm: regular, Edema: is not appreciated, JVD: is not appreciated, 23:15 Respiratory: the patient does not display signs of respiratory distress, Respirations: labored breathing, is not present, intercostal retractions, are absent, 23:15 Abdomen/GI: Inspection: abdomen appears normal, Palpation: abdomen is soft and non-tender, in all quadrants, 23:15 Back: CVA tenderness, is absent, 23:15 Neuro: Orientation: to person, place \T\ time. Mentation: is normal, 11/16 00:05 ECG was reviewed by the Attending Physician. cp Vital Signs: 11/15 22:50 BP 168 / 79; Pulse 109; Resp 19; Temp 98.9(O); Pulse Ox 96% on R/A; Weight 53.52 kg; ha1 Height 5 ft. 2 in. ; 11/16 00:00 BP 165 / 63; Pulse 107; Resp 19; Pulse Ox 97% on R/A; lg3 00:45 BP 156 / 65; Pulse 105; Resp 18 S; Pulse Ox 98% on R/A; lg3 03:27 BP 155 / 64; Pulse 101; Resp 17 S; Pulse Ox 97% on R/A; lg3 11/15 22:50 Body Mass Index 21.58 (53.52 kg, 157.48 cm) ha1 MDM: 11/15 22:44 Medical Screening Exam initiated sp4 11/16 03:01 ED course: CLINICAL HISTORY: Cough. COMPARISON: None. 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 Lungs are clear without consolidation, atelectasis, mass or edema. There is no pleural effusion. There is no pneumothorax. There are no acute osseous findings. IMPRESSION: Clear lungs. . ED course: EXAM: CTAngiography Chest With Intravenous Contrast CLINICAL HISTORY: COUGH TECHNIQUE: Axial computed tomographic angiography images of the chest with intravenous contrast. Sagittal and coronal reformatted images were created and reviewed. This CT exam was performed using one or more of the following dose reduction techniques: automated exposure control, adjustment of the mA and/or kV according to patient size, and/or use of iterative reconstruction technique. MIP reconstructed images were created and reviewed. COMPARISON: No relevant prior studies available. FINDINGS: Pulmonary arteries: Unremarkable. No pulmonary arterial filling defects. Aorta: Mild atherosclerotic disease. No thoracic aortic aneurysm. Lungs: Possible small pulmonaryAVM at the left apex. Linear bibasilar subsegmental atelectasis/pleural parenchymal scar. Pleural space: Unremarkable. No significant effusion. No pneumothorax. Heart: Coronary artery and mitral annular calcification. No cardiomegaly. No significant pericardial effusion. No evidence of RV dysfunction. Mediastinum: Small hiatal hernia. Bones/joints: Multilevel spondylosis. No acute fracture. No dislocation. Soft tissues: Unremarkable. Lymph nodes: Unremarkable. No enlarged lymph nodes. Liver: Hepatic cysts, the largest on the left measuring 2.3 cm. IMPRESSION: 1. No pulmonary embolic disease. 2. Other findings as above. Electronically signed by: Arun Clifford MD 11/16/2024 02:42 AM. 03:15 Differential Diagnosis: Bronchitis Influenza Upper Respiratory Infection Sinusitis sp4 Pharyngitis. Data reviewed: vital signs, nurses notes, lab test result(s), radiologic studies, CT scan, plain films. Consideration of Admission/Observation Escalation of care including admission/observation considered. ED course: Patient reports that cough is the most bothersome symptom. Patient has basically clear CT chest. We will provide antibiotic, Zithromax, also prescription for dextromethorphan guaifenesin, also prescription for spacer for albuterol.. 11/15 23:03 Order name: CBC with Diff; Complete Time: 00:43 cp 11/16 00:43 Interpretation: Normal except: WBC 11.20; ANTONINA% 85.9; LYM% 6.3; NEUT A 9.6. cp 11/15 23:03 Order name: CMP; Complete Time: 00:43 cp 11/16 00:43 Interpretation: Normal except: NA 134; GLUC 127; GFR 74; GLOB 3.6. cp 11/15 23:03 Order name: Lactate w/ 2H reflex if indic.; Complete Time: 00:43 cp 11/16 00:44 Interpretation: Reviewed. cp 11/15 23:03 Order name: Urinalysis w/ reflexes; Complete Time: 00:55 cp 11/16 00:55 Interpretation: Normal except: UKET TRACE; UBLD Trace. cp 11/16 00:08 Order name: Blood Culture Adult (2) cp 11/16 00:15 Order name: Glucose, Ancillary Testing; Complete Time: 00:43 EDMS 11/15 23:03 Order name: Chest Single View XRAY cp 11/16 01:02 Order name: CT Chest For PE Angio cp 11/15 23:03 Order name: Accucheck; Complete Time: 00:22 cp 11/15 23:03 Order name: Cardiac monitoring; Complete Time: 00:22 cp 11/15 23:03 Order name: EKG - Nurse/Tech; Complete Time: 00:22 cp 11/15 23:03 Order name: IV Saline Lock - Large Bore; Complete Time: 00:22 cp 11/15 23:03 Order name: Labs collected and sent; Complete Time: 00:22 cp 11/15 23:03 Order name: O2 Per Protocol; Complete Time: 00:22 cp 11/15 23:03 Order name: O2 Sat Monitoring; Complete Time: 00:22 cp 11/15 23:03 Order name: Vital Signs; Complete Time: 00:22 cp EC:05 Rate is 104 beats/min. Rhythm is regular. NE interval is normal. QRS interval is cp normal. QT interval is normal. T waves are Inverted in leads aVL, aVR. Interpreted by me. Reviewed by me. Administered Medications: 00:33 Drug: NS 0.9% IV 500 ml 500 ml IV at 1 bolus once; to be given as a bolus over 30 lg3 minutes Volume: 500 ml; Route: IV; Rate: 1 bolus; Site: right antecubital; 01:05 Follow up: Response: No adverse reaction; IV Status: Completed infusion; IV Intake: lg3 500ml 00:33 Drug: Tessalon Perle PO 200 mg PO once Route: PO; lg3 01:31 Follow up: Response: No adverse reaction lg3 00:33 Drug: levofloxacin IVPB 500 mg 100 ml IVPB once over 60 mins Volume: 100 ml; Route: lg3 IVPB; Infused Over: 60 mins; Site: right antecubital; 01:05 Follow up: Response: No adverse reaction; IV Status: Completed infusion; IV Intake: lg3 100ml 02:04 Drug: Tussionex Pennkinetic ER PO Suspension 5 ml PO once Route: PO; lg3 03:26 Follow up: Response: No adverse reaction; Marked relief of symptoms lg3 03:39 Drug: AZITHromycin PO 500 mg PO once Route: PO; lg3 03:39 Follow up: Response: No adverse reaction; Medication administered at discharge. lg3 Disposition: 03:11 Co-signature as Attending Physician, Audi Mir MD I agree with the assessment sp4 and plan of care. I reviewed the patient's care provided by Advanced Practice Provider \T\ agree w/ the diagnosis \T\ care plan. I personally saw the pt \T\ performed a substantive portion of the visit, incldng all aspects of the (History/Exam/Medical Decision Making). Disposition Summary: 11/16/24 03:12 Discharge Ordered Problem: new sp4 Symptoms: have improved sp4 Condition: Stable sp4 Diagnosis - cough sp4 - Acute upper respiratory infection, sp4 Followup: sp4 - With: Private Physician - When: 7 - 10 days - Reason: Recheck today's complaints Discharge Instructions: - Discharge Summary Sheet sp4 - Cough, Adult, [id number] sp4 Forms: - Patient Portal Instructions sp4 Prescriptions: - Spacer for Albuterol Inhaler - 0 Dispense One Spacer; ; Refills: 0, Product Selection Permitted sp4 - Ventolin HFA 90 mcg/actuation Inhalation HFA Aerosol Inhaler - inhale 2 inhalation INHALATION route every 6 hours for 10 days Use with Spacer, sp4 2 puffs Q 6 hours PRN dyspnea; 1 unit; Refills: 0, Product Selection Permitted - dextromethorphan-guaifenesin 20-400 mg Oral tablet - take 1 tablet ORAL route 4 times per day for 10 days as needed for cough; 60 sp4 tablet; Refills: 0, Product Selection Permitted - Zithromax Z-James 250 mg Oral Tablet - take 1 tablet ORAL route as directed for 5 days Day 1 - take two (2) tablets sp4 one time. Day 2, 3, 4 , 5 take one (1) tablet once daily.; 6 tablet; Refills: 0, Product Selection Permitted Signatures: Dispatcher [facility] EDAR Bob Weston PA PA cp Able, Lacie, RN RN lg3 Lakisha Valenzuela, RN RN ha1 Audi Mir MD MD sp4 Corrections: (The following items were deleted from the chart) 11/15 23:03 23:03 CBC+H.LAB.BRZ ordered. EDMS EDMS 23: 23:03 COMPREHENSIVE METABOLIC PANEL+C.LAB.BRZ ordered. EDMS EDMS 23: 23:03 LACTATE+C.LAB.BRZ ordered. EDMS EDMS 23: 23:03 Urinalysis+U.LAB.BRZ ordered. EDMS EDMS 23: 23:03 Chest Single View+RAD.RAD.BRZ ordered. EDMS EDMS 11/16 00:08 00:08 BLOOD CULTURE*+BA.LAB.BRZ ordered. EDMS EDMS
--- NOTE | 2024-11-16 03:12 | ER ---
Nurse's Notes [facility] Name: Maria Victoria Kirk Age: 79 yrs Sex: Female : 1945 Arrival Date: 11/15/2024 Time: 22:19 Bed 5 Private MD: Diagnosis: cough;Acute upper respiratory infection, Presentation: 11/15 22:50 Chief complaint: Patient states: COUGH AND CONGESTION THAT IS GETTING WORSE. ha1 22:50 Coronavirus screen: Client denies travel out of the [place] in the last 14 days. Ebola ha1 Screen: No symptoms or risks identified at this time. Initial Sepsis Screen: Does the patient meet any 2 criteria? RR > 20 per min. Does the patient have a suspected source of infection? No. Patient's initial sepsis screen is negative. Risk Assessment: Do you want to hurt yourself or someone else? Patient reports no desire to harm self or others. Onset of symptoms was November 15, 2024. 22:50 Method Of Arrival: Ambulatory ha1 22:50 Acuity: RADHA 3 ha1 Triage Assessment: 22:50 General: Appears uncomfortable, Behavior is calm, cooperative. Pain: Complains of pain ha1 in SORE THROAT AND HEADACHE Pain currently is 5 out of 10 on a pain scale. Quality of pain is described as aching. Neuro: Level of Consciousness is awake, alert, obeys commands, Oriented to person, place, time, situation. Cardiovascular: Capillary refill < 3 seconds Patient's skin is warm and dry. Respiratory: Reports cough that is non-productive, persistent Airway is patent Respiratory effort is even, unlabored, Respiratory pattern is regular, symmetrical. Historical: - Allergies: 22:50 Aspirin; ha1 22:50 Codeine; ha1 - PMHx: 22:50 GERD; High Cholesterol; Hypertension; Hypothyroidism; ha1 - PSHx: 22:50 Appendectomy; hysterectomy; urethral sling; ha1 - Immunization history:: Adult Immunizations up to date. - Infectious Disease History:: Denies. - Social history:: Smoking status: Patient denies any tobacco usage or history of. Screenin/01 00:00 [facility] ED Fall Risk Assessment (Adult) History of falling in the last 3 months, lg3 including since admission No falls in past 3 months (0 pts) Confusion or Disorientation No (0 pts) Intoxicated or Sedated No (0 pts) Impaired Gait No (0 pts) Mobility Assist Device Used No (0 pt) Altered Elimination No (0 pt) Score/Fall Risk Level 0 - 2 = Low Risk Oriented to surroundings, Maintained a safe environment, Educated pt \T\ family on fall prevention, incl call for assistance when getting out of bed, Assessed \T\ reinforced patient's understanding of fall precautions, Provided non-skid footwear. Abuse screen: Denies threats or abuse. Denies injuries from another. Nutritional screening: No deficits noted. Tuberculosis screening: No symptoms or risk factors identified. Sepsis Screening: SIRS - Systemic Inflammatory Response Syndrome: 2 or more indicates positive screen: [heart rate greater than 90 beats per minute] Patient has a negative screen for severe sepsis based on SIRS criteria. Assessment: 00:00 General: Appears in no apparent distress. uncomfortable, Behavior is calm, cooperative. lg3 Pain: Complains of pain in head and throat Pain does not radiate. Pain currently is 4 out of 10 on a pain scale. Neuro: No deficits noted. West Agitation-Sedation Scale (RASS): 0 - Alert and Calm Level of Consciousness is awake, alert, obeys commands, Oriented to person, place, time, situation. Cardiovascular: No deficits noted. Denies chest pain, shortness of breath, Capillary refill < 3 seconds Clubbing of nail beds is absent JVD is absent Patient's skin is warm and dry. Respiratory: Reports cough that is pain with cough Airway is patent Respiratory effort is even, unlabored, Respiratory pattern is regular, symmetrical. GI: No deficits noted. No signs and/or symptoms were reported involving the gastrointestinal system. Abdomen is flat, non-distended, Bowel sounds present X 4 quads. : No deficits noted. No signs and/or symptoms were reported regarding the genitourinary system. EENT: No deficits noted. Reports nasal congestion nasal discharge. Derm: No deficits noted. No signs and/or symptoms reported regarding the dermatologic system. Skin is intact, is healthy with good turgor, Skin is dry, Skin is normal, Skin temperature is warm. Musculoskeletal: No deficits noted. Circulation, motion, and sensation intact. Range of motion: intact in all extremities. 03:26 Reassessment: Patient appears in no apparent distress at this time. No changes from lg3 previously documented assessment. Patient and/or family updated on plan of care and expected duration. Pain level reassessed. Patient is alert, oriented x 3, equal unlabored respirations, skin warm/dry/pink. Patient states feeling better. Patient states symptoms have improved. Vital Signs: 11/15 22:50 BP 168 / 79; Pulse 109; Resp 19; Temp 98.9(O); Pulse Ox 96% on R/A; Weight 53.52 kg; ha1 Height 5 ft. 2 in. ; 11/16 00:00 BP 165 / 63; Pulse 107; Resp 19; Pulse Ox 97% on R/A; lg3 00:45 BP 156 / 65; Pulse 105; Resp 18 S; Pulse Ox 98% on R/A; lg3 03:27 BP 155 / 64; Pulse 101; Resp 17 S; Pulse Ox 97% on R/A; lg3 11/15 22:50 Body Mass Index 21.58 (53.52 kg, 157.48 cm) ha1 ED Course: 11/15 22:23 Patient arrived in ED. im 22:38 Bob Weston PA is PHCP. cp 22:38 Audi Mir MD is Attending Physician. cp 23:06 Triage completed. ha1 23:41 Chest Single View XRAY In Process Unspecified. EDMS 11/16 00:00 Patient has correct armband on for positive identification. Placed in gown. Bed in low lg3 position. Call light in reach. Side rails up X 1. Client placed on continuous cardiac and pulse oximetry monitoring. NIBP monitoring applied. bristle machine operator on. Door closed. Noise minimized. Warm blanket given. Pillow given. Family accompanied patient. 00:00 Arm band placed on right wrist. lg3 00:00 Initial lab(s) drawn, by me, sent to lab. First set of blood cultures drawn by me, lg3 Urine collected: clean catch specimen, clear, EKG done, by ED staff, reviewed by Bob DAVIS. Inserted saline lock: 20 gauge in right antecubital area, using aseptic technique. Blood collected. Flushed with 10 mL NS. Patient maintains SpO2 saturation greater than 95% on room air. 00:09 Sparkle Justin, ENEDINA is Primary Nurse. lg3 00:15 Second set of blood cultures drawn by me. lg3 00:21 Blood Culture Adult (2) Sent. lg3 00:22 CBC with Diff Sent. lg3 00:22 CMP Sent. lg3 00:22 Lactate w/ 2H reflex if indic. Sent. lg3 00:22 Urinalysis w/ reflexes Sent. lg3 01:44 CT Chest For PE Angio In Process Unspecified. EDMS 03:27 No provider procedures requiring assistance completed. lg3 03:40 IV discontinued, intact, bleeding controlled, No redness/swelling at site. Pressure lg3 dressing applied. Administered Medications: 00:33 Drug: NS 0.9% IV 500 ml 500 ml IV at 1 bolus once; to be given as a bolus over 30 lg3 minutes Volume: 500 ml; Route: IV; Rate: 1 bolus; Site: right antecubital; 01:05 Follow up: Response: No adverse reaction; IV Status: Completed infusion; IV Intake: lg3 500ml 00:33 Drug: Tessalon Perle PO 200 mg PO once Route: PO; lg3 01:31 Follow up: Response: No adverse reaction lg3 00:33 Drug: levofloxacin IVPB 500 mg 100 ml IVPB once over 60 mins Volume: 100 ml; Route: lg3 IVPB; Infused Over: 60 mins; Site: right antecubital; 01:05 Follow up: Response: No adverse reaction; IV Status: Completed infusion; IV Intake: lg3 100ml 02:04 Drug: Tussionex Pennkinetic ER PO Suspension 5 ml PO once Route: PO; lg3 03:26 Follow up: Response: No adverse reaction; Marked relief of symptoms lg3 03:39 Drug: AZITHromycin PO 500 mg PO once Route: PO; lg3 03:39 Follow up: Response: No adverse reaction; Medication administered at discharge. lg3 Medication: 00:00 VIS not applicable for this client. lg3 Intake: 01:05 IV: 500ml; Total: 500ml. lg3 01:05 IV: 100ml; Total: 600ml. lg3 Outcome: 03:12 Discharge ordered by . sp4 03:39 Discharged to home ambulatory, with family, lg3 03:39 Condition: stable 03:39 Discharge instructions given to patient, Instructed on discharge instructions, follow up and referral plans. medication usage, Demonstrated understanding of instructions, follow-up care, medications, Prescriptions given X 4, 03:40 Patient left the ED. lg3 Signatures: Dispatcher [employer] Bob Olivia PA PA cp Able, Lacie, RN RN lg3 Lakisha Valenzuela RN RN ha1 Audi Mir MD MD sp4 Anan Lockett
[2024-11-16] MEDS ORDERED: AZITHROMYCIN 250 MG TAB ONE (03:30)
[2024-11-16 03:44] VITALS: TEMP 98.9
[2024-11-16 03:49] VITALS: BP 155/64; O2SAT 97
--- NOTE | 2024-11-16 04:16 | RAD REPORT ---
EXAM: CT Angiography Chest With Intravenous Contrast CLINICAL HISTORY: COUGH TECHNIQUE: Axial computed tomographic angiography images of the chest with intravenous contrast. Sagittal and coronal reformatted images were created and reviewed. This CT exam was performed using one or more of the following dose reduction techniques: automated exposure control, adjustment of the mA a nd/or kV according to patient size, and/or use of iterative reconstruction technique. MIP reconstructed images were created and reviewed. COMPARISON: No relevant prior studies available. FINDINGS: Pulmonary arteries: Unremarkable. No pulmonary arterial filling defects. Aorta: Mild atherosclerotic disease. No thoracic aortic aneurysm. Lungs: Possible small pulmonary AVM at the left apex. Linear bibasilar subsegmental atelectasis/ple ural parenchymal scar. Pleural space: Unremarkable. No significant effusion. No pneumothorax. Heart: Coronary artery and mitral annular calcification. No cardiomegaly. No significant perica rdial effusion. No evidence of RV dysfunction. Mediastinum: Small hiatal hernia. Bones/joints: Multilevel spondylosis. No acute fracture. No dislocation. Soft tissues: Unremarkable. Lymph nodes: Unremarkable. No enlarged lymph nodes. Liver: Hepatic cysts, the largest on the left measuring 2.3 cm. IMPRESSION: 1. No pulmonary embolic disease. 2. Other findings as above. Electronically signed by: Arun Clifford MD 11/16/2024 02:42 AM [facility] Due to temporary technical issues with the PACS/Boats[employer] reporting system, reports are being leonardo d by the in-house radiologist without review as a courtesy to ensure prompt reporting the interpreting radiologist is fully responsible for the content of the report. Transcribed Date/Time: 11/16/2024 4:16 AM
== END 2024-11-16 03:40 | disposition home or self-care (01) ==
LOC: ER 22:19
DX: J06.9 Acute upper respiratory infection, unspecified (principal); R05.9 Cough, unspecified; I10 Essential (primary) hypertension; E03.9 Hypothyroidism, unspecified; E78.00 Pure hypercholesterolemia, unspecified; Z88.5 Allergy status to narcotic agent; Z88.8 Allergy status to other drugs, medicaments and biological substances
CPT/HCPCS: 87040 ×2; 85025; 81001; 36415; 82947; 83605; 80053; 71275; 71045; Q9967; J7040

== ENCOUNTER 2024-12-16 12:00 | Day surgery (SDC) | payer OTHER, BC ==
[2024-12-13 11:03] LABS: Absolute Basophils 0.1 K/uL (0-0.5); Absolute Eosinophils 0.2 K/uL (0-0.5); Absolute Lymphocytes (CBC) 1.9 K/uL (0.7-4.9); Absolute Monocytes 0.9 K/uL (0.1-1.3); Basophils % 0.6 % (0-1.3); Eosinophils % 2.4 % (0-4.4); Hematocrit 41.2 % (36.0-45.0); Hemoglobin 14.4 g/dL (12.0-15.0); Lymphocytes % 18.6 % (15.3-44.8); MCH 31.4 pg (27.0-35.0); MCHC 34.9 g/dL (32.0-36.0); MCV 90.1 fL (80-100); Neutrophils % 69.4 % (41.7-73.7); Nucleated Red Blood Cells % 0.1 % (0-0); Platelets 252 thou/uL (152-406); RBC Red Blood Cell Count 4.57 M/uL (3.86-4.86)
[2024-12-13 11:08] LABS: Anion Gap 9.2 mEq/L (5.0-15.0); Potassium 4.2 mEq/L (3.5-5.1)
[2024-12-13 11:16] LABS: PT Prothrombin Time 11.5 SECONDS (10-13.0); PTT, Activated Partial Thromb 30.8 SECONDS (27.2-37.4); Protime INR 1.01
--- NOTE | 2024-12-16 11:29 | EKG ---
Test Date: 2024-12-13 Test Time: 10:38:19 Financial Services Education Consultant: MEASUREMENT RESULTS: Intervals: Rate: 81 WI: 148 QRSD: 88 QT: 360 QTc: 418 Elliott: P: 66 WI: 148 QRS: 47 T: 70 INTERPRETIVE STATEMENTS: Sinus rhythm with premature supraventricular complexes Otherwise normal ECG Compared to ECG 11/16/2024 00:00:17 Atrial premature complex(es) now present Sinus tachycardia no longer present Atrial abnormality no longer present Myocardial infarct finding no longer present Electronically Signed On 12-16-24 11:22:56 CDT by Cecil Lin
[2024-12-16] MEDS ORDERED: NA CHLORIDE 0.9% 500 ML ONE (12:05)
[2024-12-16] MEDS ORDERED: HEPARIN 10,000 UNIT/10 ML VIAL IV ONE (13:23)
[2024-12-16] MEDS ORDERED: LIDOCAINE 1% 20 ML MDV ONE (13:23)
[2024-12-16] MEDS ORDERED: HEPA 1000U/500MLS 2,000 UNIT/1,000 ML BAG IV ONE (13:23)
[2024-12-16] MEDS ORDERED: MIDAZOLAM HCL 2 MG/2 ML INJ ONE (13:24)
[2024-12-16] MEDS ORDERED: ATROPINE SULF 1 MG/10 ML SYR IV ONE (13:24)
[2024-12-16] MEDS ORDERED: CLOPIDOGREL 75 MG TABLET ONE (13:24)
[2024-12-16] MEDS ORDERED: VERAPAMIL HCL 10 MG/4 ML VIAL IV ONE (13:24)
[2024-12-16] MEDS ORDERED: HEPARIN 5000 UNIT/ML 1 ML VIAL ONE (13:24)
[2024-12-16] MEDS ORDERED: FENTANYL CITR 100 MCG/2 ML ONE (13:25)
[2024-12-16] MEDS ORDERED: TICAGRELOR 90 MG TABLET PO ONE (13:25)
[2024-12-16] MEDS ORDERED: ASPIRIN 325 MG TAB ONE (13:25)
[2024-12-16 16:30] VITALS: BP 132/51; O2SAT 96
--- NOTE | 2024-12-17 01:28 | OP ---
Date of Procedure: 12/16/2024 Surgeon: GEOVANNA BANG Procedures Performed: 1. Selective coronary angiogram. 2. Left heart catheterization. 3. Right heart catheterization. Indications: 1. Unstable angina. 2. Shortness of breath. Access: 1. Right radial artery 6-Kazakh, closed with TR band. 2. Right IJ 7-Kazakh, closed with manual pressure. Complications: None. Bleeding: Less than 50 mL. Anesthesia: Total sedation time was 1 hour, used fentanyl and versed. Description Of Procedure: After risks, benefits, and alternatives were explained, the patient agreed to procedure and signed informed consent. The patient was brought into cardiac catheterization [facility], prepped and draped in usual sterile fashion. Then, I accessed right radial artery using pedi atric micropuncture kit and ultrasound guidance, and placed a 6-Kazakh [place] sheath. Then, I acces sed right IJ using micropuncture kit, ultrasound guidance, and placed 7-Kazakh [place] sheath and th en took a balloon-tipped 7-Kazakh [place] catheter through the IJ access into the right atrium, right ve ntricle, pulmonary artery and wedge, obtained waveform and pressure, and then measured cardiac output using a thermodilutional method. Then, removed the [place] and IJ access manual pressure was used for closure with good hemostasis. Then, I took 5-Kazakh [place] 4 catheter over J-wire into the aortic malgorzata t across the aortic valve, measured the LVEDP. Pullback recorded mild gradient and then engaged left main, took standard views and then engaged the RCA, took standard views and removed the catheter and the sheath and placed TR band with good hemostasis. Findings: Coronary Angiogram: 1. Left main is normal. 2. LAD; proximal segment is normal, mid segment and at the septal takeoff, there is 60% stenosis, hea vily calcified vessel. Then at the mid segment, there is an area that is very hazy suggestive of pro bably 60 to 70% stenosis and mid to distal, there is another spot similar to the mid LAD spot and ran ging 60 to 70% stenosis heavily calcified vessel. Diagonal branches with luminal irregularities. 3. Left circumflex; moderate size nondominant. After the OM1 takeoff and right at the OM2 takeoff, t here is focal 50 to 60% stenosis. 4. RCA is large and dominant proximal 30 to 40% stenosis, distal 40% stenosis, and the PDA has proxim al 50% stenosis, mid 60% stenosis. Right heart catheterization numbers: RA pressure is 4. RV pressure 30/1, mean of 3. PA pressure is 28/11, mean of 18. Pulmonary wedge pressure was 10. LVEDP was 13 mmHg. Cardiac output was 5.87 L/ minute and mean gradient across aortic valve was 22 mmHg with a valve area of 1.32 cm2. Conclusions: 1. Moderate to severe multivessel coronary artery disease. Needs further investigation. 2. Moderate aortic valve stenosis. Recommendation: Schedule at [place] to do FFR of the LAD, left circumflex, and the RCA and plan o n PCI versus CABG accordingly and if the PCI is to be done, to be done at [place], especially the LAD is heavily calcified and is going to be a complex intervention. /VILMA Voice ID: [id number] Report ID: [id number]
== END 2024-12-16 17:00 | disposition home or self-care (01) ==
LOC: CCL 12:00
PROVIDERS: ATTEND Internal Medicine
DX: I25.110 Atherosclerotic heart disease of native coronary artery with unstable angina pectoris (principal); I35.0 Nonrheumatic aortic (valve) stenosis; I34.0 Nonrheumatic mitral (valve) insufficiency; I10 Essential (primary) hypertension; E78.2 Mixed hyperlipidemia; Z79.899 Other long term (current) drug therapy; Z88.5 Allergy status to narcotic agent; Z88.8 Allergy status to other drugs, medicaments and biological substances; Z82.49 Family history of ischemic heart disease and other diseases of the circulatory system
CPT/HCPCS: 93005; 85025; 80048; 36415; 85610; 85730; 93460; 76937; C1893; Q9966; J1644; J2003; J2250; J3010; J7040; 99152; 99153; J0461

== ENCOUNTER 2025-02-02 17:07 | Emergency (ER) | payer OTHER, BC ==
[2025-02-02 17:54] LABS: Absolute Eosinophils 0.1 K/uL (0-0.5); Absolute Lymphocytes (CBC) 1.3 K/uL (0.7-4.9); Absolute Monocytes 0.8 K/uL (0.1-1.3); Absolute Neutrophil 3.7 K/uL (1.8-8.0); Basophils % 0.8 % (0-1.3); Hematocrit 41.5 % (36.0-45.0); Hemoglobin 14.5 g/dL (12.0-15.0); Lymphocytes % 21.7 % (15.3-44.8); MCH 31.4 pg (27.0-35.0); MCV 89.7 fL (80-100); MPV 7.9 fL (7.6-11.3); Monocytes % 13.6 % (3.3-12.3); Neutrophils % 61.9 % (41.7-73.7); Platelets 245 thou/uL (152-406); RBC Red Blood Cell Count 4.63 M/uL (3.86-4.86); Red Cell Distribution Width 13.6 % (12.1-15.2)
--- NOTE | 2025-02-02 18:04 | RAD REPORT ---
EXAM: Chest Single View HISTORY: 80 years Female CHEST PAIN COMPARISON: 11/15/2024 FINDINGS: LUNGS/PLEURA: The lungs are clear. No pulmonary edema. Possible small right pleural effusion. There i s blunting of the right costophrenic angle. CARDIAC/MEDIASTINUM: The cardiac silhouette is within normal limits. UPPER ABDOMEN: No significant abnormality. BONES: No acute abnormality. LINES/TUBES/OTHER: N/A IMPRESSION: No definite acute process identified. Possible new small right pleural effusion.
[2025-02-02 18:06] LABS: D-Dimer < 0.215 FEUug/mL (0-0.500); PT Prothrombin Time 12.7 SECONDS (10-13.0); Protime INR 1.12
[2025-02-02 18:14] LABS: ALT/SGPT 25 U/L (13-56); AST/SGOT 19 U/L (15-37); Albumin 3.4 g/dL (3.4-5.0); Alkaline Phosphatase 73 U/L (45-117); Anion Gap 9.9 mEq/L (5.0-15.0); BUN Blood Urea Nitrogen 18 mg/dL (7-18); Bicarbonate 28 mEq/L (21-32); Bilirubin Total 0.2 mg/dL (0.2-1.0); Globulin 3.5 g/dL (2.3-3.5); Glomerular Filtration Rate 68 ml/min (=/>90); Glucose Level 112 mg/dL (74-106); Magnesium 2.1 mg/dL (1.6-2.4); NT PRO-BNP 335 pg/mL (<450); Potassium 3.9 mEq/L (3.5-5.1); Protein, Total 6.9 g/dL (6.4-8.2); Sodium Level 140 mEq/L (136-145); Troponin High Sensitivity 8.1 pg/mL (<58.9)
[2025-02-02 18:20] LABS: SARS-CoV-2 Antigen Rapid Res Negative (Negative)
[2025-02-02 18:31] LABS: Bilirubin Direct < 0.2 mg/dL (0-0.2)
[2025-02-02] MEDS ORDERED: BENZONATATE 100 MG CAP PO ONE (18:32)
--- NOTE | 2025-02-02 21:07 | RAD REPORT ---
EXAMINATION: Thorax Wo Con CLINICAL INDICATION: Female, 80 years old. Cough;Chest pain TECHNIQUE: Routine CT scan of the chest without intravenous contrast. One or more of the following do se reduction techniques were used: Automated exposure control, adjustment of the mA and/or kV according to patient size, and/or iterative reconstruction. Unless otherwise specified, incidental fi ndings do not require dedicated imaging follow-up. [id number]. COMPARISON: 11/16/2024 FINDINGS: LOWER NECK: Visualized thyroid gland and soft tissues are normal. MEDIASTINUM AND LYMPH NODES: No mediastinal mass or fluid collection. Normal size mediastinal, hilar, and axillary lymph nodes. THORACIC AORTA: No thoracic aortic aneurysm. PULMONARY ARTERIES: Caliber is within normal limits. HEART: Normal heart size. Mild coronary artery calcifications.No significant pericardial effusion. Ao rtic valve and mitral annular calcifications. LUNGS AND AIRWAYS: Scattered areas of mild scarring and nodularity, none of which is related to an ac nenana process. No suspicious and/or stable pulmonary nodules. PLEURA: No pleural effusions. No pneumothorax. Subpleural thickening at the right middle lobe likely simulates the presence of the pleural effusion on the chest radiograph. OSSEOUS STRUCTURES AND CHEST WALL: No fracture or suspicious osseous lesions. UPPER ABDOMEN: No acute abnormalities.Benign appearing low density liver lesions. IMPRESSION: No acute findings in the chest. Chronic changes as noted above. No specific follow-up required.
--- NOTE | 2025-02-02 22:09 | EDPHYS ---
Physician Documentation [facility] Name: Maria Victoria Kirk Age: 80 yrs Sex: Female : 1945 Arrival Date: 02/02/2025 Time: 17:07 Bed 18 Private MD: ED Physician Delphine Orellana HPI: 02/02 17:30 This 80 yrs old Female presents to ER via Ambulatory with complaints of Chest Pressure. cp 17:30 The patient or guardian reports chest pain that is located primarily in the substernal cp area. 17:30 Onset: for past several days. Associated signs and symptoms: Pertinent positives: cp cough, Pertinent negatives: abdominal pain, diaphoresis, headache, lower extremity pain, lower extremity swelling, near syncope, palpitations, syncope, vomiting. The chest pain is described as a pressure. Duration: The patient or guardian reports a single episode, that is still ongoing, and unchanged. Patient reports she is currently taking prescribed Levofloxacin for sinus congestion and cough that started over 1 week ago. Denies fever today or last night. Patient concerned about possible pneumonia and is scheduled for cardiac catheterization tomorrow. Historical: - Allergies: 17:22 Aspirin; cm10 17:22 Codeine; cm10 - PMHx: 17:22 GERD; High Cholesterol; Hypertension; Hypothyroidism; cm10 - PSHx: 17:22 Appendectomy; hysterectomy; urethral sling; cm10 - Immunization history:: Adult Immunizations up to date. - Infectious Disease History:: Denies. - Social history:: Smoking status: Patient denies any tobacco usage or history of. ROS: 17:35 Constitutional: Negative for body aches, chills, fever, poor PO intake, cp 17:35 Eyes: Negative for injury, pain, redness, and discharge, cp 17:35 ENT: Negative for drainage from ear(s), ear pain, sore throat, difficulty swallowing, difficulty handling secretions, 17:35 Cardiovascular: Positive for chest pressure, Negative for edema, palpitations, 17:35 Respiratory: Positive for cough, with no reported sputum, Negative for wheezing, 17:35 Abdomen/GI: Negative for abdominal pain, vomiting, diarrhea, constipation, 17:35 Neuro: Negative for altered mental status, 17:35 All other systems are negative, Exam: 17:39 Constitutional: The patient appears in no acute distress, alert, awake, cp non-diaphoretic, non-toxic, well developed, well nourished, uncomfortable, 17:39 Head/Face: Normocephalic, atraumatic. cp 17:39 Eyes: Periorbital structures: appear normal, Conjunctiva: normal, no exudate, no injection, Sclera: no appreciated abnormality, Lids and lashes: appear normal, bilaterally, 17:39 ENT: External ear(s): are unremarkable, Nose: is normal, Mouth: Lips: moist, Oral mucosa: moist, Posterior pharynx: Airway: no evidence of obstruction, patent, 17:39 Chest/axilla: Inspection: normal, Palpation: crepitus, is not appreciated, tenderness, is not appreciated, 17:39 Cardiovascular: Rate: normal, Rhythm: regular, Edema: is not appreciated, JVD: is not appreciated, 17:39 Respiratory: the patient does not display signs of respiratory distress, Respirations: normal, no use of accessory muscles, no retractions, labored breathing, is not present, Breath sounds: decreased breath sounds, are not appreciated, rhonchi, are not appreciated, stridor, is not appreciated, wheezing: is not appreciated, 17:39 Abdomen/GI: Inspection: abdomen appears normal, Palpation: abdomen is soft and non-tender, in all quadrants, 17:39 Back: pain, is absent, ROM is normal, 17:39 Neuro: Orientation: to person, place \T\ time. Mentation: is normal, Motor: moves all fours, strength is normal, Sensation: is normal, Gait: is steady, at a normal pace, without difficulty, 17:41 ECG was reviewed by the Attending Physician. cp Vital Signs: 17:20 BP 164 / 73; Pulse 83; Resp 16; Temp 98.4(TE); Pulse Ox 100% on R/A; Weight 53.52 kg; cm10 Height 5 ft. 3 in. ; Pain 5/10; 18:46 BP 164 / 79; Pulse 86; Resp 18; Pulse Ox 100% on R/A; mb9 19:28 BP 164 / 78; Pulse 82; Resp 13; Pulse Ox 99% ; vc1 21:28 BP 168 / 72; Pulse 85; Resp 20; Pulse Ox 95% on R/A; kj2 22:15 BP 160 / 74; Pulse 80; Resp 20; Temp 97.9; Pulse Ox 100% on R/A; kj2 17:20 Body Mass Index 20.90 (53.52 kg, 160.02 cm) cm10 17:20 Pain Scale: Adult cm10 MDM: 17:26 Medical Screening Exam initiated cp 22:07 Data reviewed: vital signs, nurses notes, lab test result(s), EKG, radiologic studies, cp CT scan, plain films, and as a result, I will discharge patient. 22:07 Differential diagnosis: abnormal EKG, acute myocardial infarction, acute pericarditis, cp pleurisy, pneumonia, pneumothorax, pulmonary embolus, stable angina, thoracic aortic disection, unstable angina. I considered the following discharge prescriptions or medication management in the emergency department Medications were administered in the Emergency Department. See MAR. Independent interpretation of the following test(s) in the Emergency Department EKG: See my EKG interpretation above. Counseling: I had a detailed discussion with the patient and/or guardian regarding the historical points, exam findings, and any diagnostic results supporting the discharge/admit diagnosis, the presence of at least one elevated blood pressure reading (>120/80) during this emergency department visit, lab results, to return to the emergency department if symptoms worsen or persist or if there are any questions or concerns that arise at home. Response to treatment: the patient's symptoms have mildly improved after treatment, and as a result, I will discharge patient. Special discussion: Based on the patient's history, exam, and Dx evaluation, there is no indication for emergent intervention or inpatient Tx. It is understood by the patient/guardian that if the Sx's persist or worsen they need to return immediately for re-evaluation. 02/02 17:28 Order name: Basic Metabolic Panel; Complete Time: 18:33 cp 05/18 18:33 Interpretation: Normal except: GLUC 112; GFR 68. cp 18 17:28 Order name: CBC with Diff; Complete Time: 18:33 cp 05/18 18:33 Interpretation: Normal except: MN% 13.6. cp 18 17:28 Order name: D-Dimer; Complete Time: 18:33 cp 18 17:28 Order name: LFT's; Complete Time: 18:33 cp 18 18:34 Interpretation: Normal except: IBILI, CALC 0.0; A/G 1.0. cp 02/02 17:28 Order name: Magnesium; Complete Time: 18:33 cp 02/02 17:28 Order name: NT PRO-BNP; Complete Time: 18:33 cp 02/02 17:28 Order name: PT-INR; Complete Time: 18:33 cp 02/02 17:28 Order name: Troponin HS; Complete Time: 18:33 cp 18 18:35 Interpretation: Reviewed. cp 02/02 17:28 Order name: SARS RAPID; Complete Time: 18:33 cp 02/02 20:03 Order name: Troponin High Sensitivity; Complete Time: 22:01 cp 02/02 22:01 Interpretation: Reviewed. cp 02/02 17:28 Order name: XRAY Chest (1 view); Complete Time: 18:33 cp 02/02 20:03 Order name: CT Chest Wo Con; Complete Time: 21:10 cp 02/02 17:28 Order name: EKG; Complete Time: 17:29 cp 02/02 17:28 Order name: Cardiac monitoring; Complete Time: 18:28 cp 02/02 17:28 Order name: EKG - Nurse/Tech; Complete Time: 18:22 cp 02/02 17:28 Order name: IV Saline Lock; Complete Time: 18:22 cp 02/02 17:28 Order name: Labs collected and sent; Complete Time: 18:22 cp 02/02 17:28 Order name: O2 Per Protocol; Complete Time: 18:28 cp 02/02 17:28 Order name: O2 Sat Monitoring; Complete Time: 18:28 cp EC:41 Rate is 80 beats/min. Rhythm is regular. VT interval is normal. QRS interval is normal. cp QT interval is normal. T waves are Inverted in leads aVL, aVR. Interpreted by me. Reviewed by me. Administered Medications: 18:35 Drug: Tessalon Perle PO 200 mg PO once Route: PO; mb9 18:56 Follow up: Response: No adverse reaction mb9 Disposition Summary: 02/02/25 22:08 Discharge Ordered Notes: Location: Home cp Problem: new cp Symptoms: have improved cp Condition: Stable cp Diagnosis - Cough cp - Chest pain, unspecified cp Followup: cp - With: Private Physician - When: 5 - 6 days - Reason: Recheck today's complaints Discharge Instructions: - Discharge Summary Sheet cp - Nonspecific Chest Pain, Adult cp - Cough, Adult cp Forms: - Medication Reconciliation Form cp - Antibiotic Education cp - Prescription Opioid Use cp - Patient Portal Instructions cp - Leadership Thank You Letter cp Prescriptions: - Tessalon Perles 100 mg Oral capsule - take 1 capsule ORAL route every 8 hours As needed; 20 capsule; Refills: 0, cp Product Selection Permitted Signatures: Dispatcher [employer] EDMS Bob Weston PA PA cp Wilkerson, Mary Beth RN RN mb9 Tati Mcneil RN RN cm10 Corrections: (The following items were deleted from the chart) 18:35 18:35 Chest For PE Angio+CT.RAD.BRZ ordered. EDMS EDMS
--- NOTE | 2025-02-02 22:09 | ER ---
Nurse's Notes [facility] Name: Maria Victoria Kirk Age: 80 yrs Sex: Female : 1945 Arrival Date: 02/02/2025 Time: 17:07 Bed 18 Private MD: Diagnosis: Cough;Chest pain, unspecified Presentation: 02/02 17:20 Chief complaint: Patient states: Here to have a chest x-ray to r/o pneumonia. pt states cm10 that she has had a sinus infection for the last week and wants to make sure she did not develop pneumonia. Pt reports that she has had a productive cough and having chest pressure to the center of her chest. Coronavirus screen: Client denies travel out of the [place] in the last 14 days. Ebola Screen: Patient denies travel to an Ebola-affected area in the 21 days before illness onset. Initial Sepsis Screen: Does the patient meet any 2 criteria? No. Patient's initial sepsis screen is negative. Does the patient have a suspected source of infection? No. Patient's initial sepsis screen is negative. Risk Assessment: Do you want to hurt yourself or someone else? Patient reports no desire to harm self or others. Onset of symptoms was February 02, 2025. 17:20 Method Of Arrival: Ambulatory cm10 17:20 Acuity: RADHA 3 cm10 Triage Assessment: 17:22 General: Appears in no apparent distress. comfortable, Behavior is calm, cooperative. cm10 Pain: Complains of pain in chest Pain currently is 5 out of 10 on a pain scale. Quality of pain is described as pressure. Neuro: No deficits noted. Level of Consciousness is awake, alert, obeys commands, Oriented to person, place, time, situation, Appropriate for age. Respiratory: No deficits noted. Airway is patent Respiratory effort is even, unlabored, Respiratory pattern is regular, symmetrical. Historical: - Allergies: 17:22 Aspirin; cm10 17:22 Codeine; cm10 - PMHx: 17:22 GERD; High Cholesterol; Hypertension; Hypothyroidism; cm10 - PSHx: 17:22 Appendectomy; hysterectomy; urethral sling; cm10 - Immunization history:: Adult Immunizations up to date. - Infectious Disease History:: Denies. - Social history:: Smoking status: Patient denies any tobacco usage or history of. Screenin:29 [facility] ED Fall Risk Assessment (Adult) History of falling in the last 3 months, mb9 including since admission No falls in past 3 months (0 pts) Confusion or Disorientation No (0 pts) Intoxicated or Sedated No (0 pts) Impaired Gait No (0 pts) Mobility Assist Device Used No (0 pt) Altered Elimination No (0 pt) Score/Fall Risk Level 0 - 2 = Low Risk Oriented to surroundings, Maintained a safe environment, Educated pt \T\ family on fall prevention, incl call for assistance when getting out of bed. Abuse screen: Denies threats or abuse. Nutritional screening: No deficits noted. Tuberculosis screening: No symptoms or risk factors identified. Assessment: 18:46 General: Appears in no apparent distress. Behavior is calm, cooperative. Pain: Denies mb9 pain. Neuro: [place] Agitation-Sedation Scale (RASS): 0 - Alert and Calm Level of Consciousness is awake, alert, obeys commands, Oriented to person, place, time, situation, Appropriate for age. Cardiovascular: Heart tones S1 S2 present Patient's skin is warm and dry. Respiratory: Reports cough that is non-productive, Airway is patent Respiratory effort is even, unlabored, Respiratory pattern is regular, symmetrical, Breath sounds are clear bilaterally. GI: No signs and/or symptoms were reported involving the gastrointestinal system. : No signs and/or symptoms were reported regarding the genitourinary system. EENT: Reports nasal congestion. Derm: Skin is pink, warm \T\ dry. Musculoskeletal: Range of motion: intact in all extremities. 18:55 Reassessment: Patient appears in no apparent distress at this time. No changes from kj2 previously documented assessment. Patient and/or family updated on plan of care and expected duration. Pain level reassessed. 19:29 Reassessment: Patient appears in no apparent distress at this time. No changes from vc1 previously documented assessment. Patient and/or family updated on plan of care and expected duration. Pain level reassessed. Patient is alert, oriented x 3, equal unlabored respirations, skin warm/dry/pink. 20:19 Reassessment: Patient appears in no apparent distress at this time. Patient and/or kj2 family updated on plan of care and expected duration. Pain level reassessed. Patient is alert, oriented x 3, equal unlabored respirations, skin warm/dry/pink. 21:28 Reassessment: Patient appears in no apparent distress at this time. Patient and/or kj2 family updated on plan of care and expected duration. Pain level reassessed. Patient is alert, oriented x 3, equal unlabored respirations, skin warm/dry/pink. 22:15 Reassessment: Patient appears in no apparent distress at this time. Patient and/or kj2 family updated on plan of care and expected duration. Pain level reassessed. Patient is alert, oriented x 3, equal unlabored respirations, skin warm/dry/pink. Vital Signs: 17:20 BP 164 / 73; Pulse 83; Resp 16; Temp 98.4(TE); Pulse Ox 100% on R/A; Weight 53.52 kg; cm10 Height 5 ft. 3 in. ; Pain 5/10; 18:46 BP 164 / 79; Pulse 86; Resp 18; Pulse Ox 100% on R/A; mb9 19:28 BP 164 / 78; Pulse 82; Resp 13; Pulse Ox 99% ; vc1 21:28 BP 168 / 72; Pulse 85; Resp 20; Pulse Ox 95% on R/A; kj2 22:15 BP 160 / 74; Pulse 80; Resp 20; Temp 97.9; Pulse Ox 100% on R/A; kj2 17:20 Body Mass Index 20.90 (53.52 kg, 160.02 cm) cm10 17:20 Pain Scale: Adult cm10 ED Course: 17:11 Patient arrived in ED. al6 17:18 Bob Weston PA is PHCP. cp 17:18 Delphine Orellana MD is Attending Physician. cp 17:22 Triage completed. cm10 17:22 Arm band placed on right wrist. Patient placed in waiting room. cm10 17:40 EKG done, by deburr technician. reviewed by Bob DAVIS. nh2 17:45 Inserted saline lock: 20 gauge in right antecubital area, using aseptic technique. nh2 Blood collected. Flushed with 10 mL NS. 17:57 XRAY Chest (1 view) In Process Unspecified. EDMS 18:14 Patient placed in an exam room, on a stretcher. mb9 18:22 LFT's Sent. nh2 18:22 Basic Metabolic Panel Sent. nh2 18:22 Magnesium Sent. nh2 18:22 NT PRO-BNP Sent. nh2 18:22 Troponin HS Sent. nh2 18:27 Alice Rodriguez, RN is Primary Nurse. mb9 18:29 Placed in gown. Bed in low position. Call light in reach. Side rails up X 1. Provided mb9 Education on: press call light if needing anything. Client placed on continuous cardiac and pulse oximetry monitoring. NIBP monitoring applied. event host on. 18:29 No provider procedures requiring assistance completed. mb9 18:54 Report given to ENEDINA Buenrostro. mb9 18:55 Report received from Alice Groves RN. kj2 20:40 CT Chest Wo Con In Process Unspecified. EDMS 22:16 IV discontinued, intact, bleeding controlled, No redness/swelling at site. Pressure kj2 dressing applied. Administered Medications: 18:35 Drug: Tessalon Perle PO 200 mg PO once Route: PO; mb9 18:56 Follow up: Response: No adverse reaction mb9 Medication: 18:29 VIS not applicable for this client. mb9 Outcome: 22:08 Discharge ordered by . iris 22:16 Discharged to home ambulatory, with family, kj2 22:16 Condition: stable 22:16 Discharge instructions given to patient, family, Instructed on discharge instructions, follow up and referral plans. Demonstrated understanding of instructions, follow-up care, 22:31 Patient left the ED. kj2 Signatures: Dispatcher [employer] EDMS Bob Weston PA PA cp Calcote, Vanessa RN RN vc1 Alice Rodriguez, RN RN arturo9 Tati Mcneil RN RN cm10 Chitra Urias RN RN kj2 Torsten Michaud [place] [id number] [address] [facility]
[2025-02-02 22:55] VITALS: BP 160/74; TEMP 97.9; O2SAT 100
== END 2025-02-02 22:31 | disposition home or self-care (01) ==
LOC: ER 17:07
DX: R07.9 Chest pain, unspecified (principal); R05.9 Cough, unspecified; I10 Essential (primary) hypertension; E78.00 Pure hypercholesterolemia, unspecified; Z11.52 Encounter for screening for COVID-19
CPT/HCPCS: 36415; 71045; 71250; 80048; 80076; 83735; 83880; 84484; 85025; 85379; 85610; 87426; 93005; 99285